=== PATIENT | male | born 1945 | race Two or more races ===

== ENCOUNTER 2018-12-02 14:01 | Inpatient (IN) | payer MEDICARE, MEDICAID ==
[~2018-12-02] VITALS: Ht 167.6 cm; Wt 79.4 kg
[2018-12-02] MEDS ORDERED: Cefepime HCl 2 GM in NS 110 ML IV SCH (14:15)
--- NOTE | 2018-12-02 14:43 | Diagnostic Imaging Report ---
Indication: Dyspnea Comparison: None A single view chest radiograph was obtained. Findings: Bones are osteopenic. The heart is mildly enlarged. Lung volumes are low bilaterally. IMPRESSION: No acute findings
--- NOTE | 2018-12-02 15:00 | Emergency Room Report ---
History of Present Illness General Chief Complaint: Skin Rash/Abscess Source: Patient, Medical Record, EMS Present Illness HPI This patient presents from a half-way facility. The patient has had an ongoing infection in his right foot. He complains of pain in this location. He has been treated at the half-way facility with oral antibiotics with worsening symptoms. There is no fever or chills. There is no nausea or vomiting. There are no other complaints. Allergies: Coded Allergies: ACETAMINOPHEN (Verified Allergy, Unknown, 12/02/18) Pork (Verified Allergy, Unknown, 12/02/18) Uncoded Allergies: PENICILLIN (Allergy, Unknown, 12/02/18) Patient History Past Medical History: see triage record, old chart reviewed, DM, HTN, GERD, dementia, psych hx, renal disease, other - Chronic foot ulcers Social History: Denies: smoking, alcohol use, drug use Reviewed Nursing Documentation: PMH: Agreed; PSxH: Agreed Review of Systems All Other Systems: negative except mentioned in HPI Physical Exam Vital Signs Date Time Temp Pulse Resp B/P (MAP) Pulse Ox O2 Delivery O2 Flow Rate FiO2 12/02/18 13:56 98.6 81 18 92 Sp02 EP Interpretation: reviewed, normal General Appearance: no apparent distress, alert, GCS 15, non-toxic Head: normocephalic, atraumatic Eyes: bilateral eye normal inspection, bilateral eye PERRL ENT: hearing grossly normal, normal pharynx, no angioedema, normal voice Neck: full range of motion, supple/symm/no masses Respiratory: chest non-tender, lungs clear, normal breath sounds, no respiratory distress, no retraction, no accessory muscle use, speaking full sentences Cardiovascular #1: regular rate, rhythm, no edema Gastrointestinal: normal bowel sounds, non tender, soft, non-distended, no guarding, no rebound Rectal: deferred Musculoskeletal: normal range of motion, other - R. foot: Toes 1-4 with erythema, ulceration, maceration and swelling. Neurologic: alert, responsive, sensory intact, speech normal, grossly normal Psychiatric: judgement/insight normal, memory normal, mood/affect normal Skin: warm/dry, well hydrated, other - See above in MSK Medical Decision Making Diagnostic Impression: Primary Impression: Cellulitis and abscess of foot Additional Impressions: Chronic ulcer of toes Renal insufficiency Hyperglycemia ER Course This patient has findings on physical exam consistent severe with tinea pedis with chronic ulcerations and skin findings that could be overlying cellulitis. The patient was given broad-spectrum antibiotics here in the emergency department. The patient may need debridement and further evaluation by podiatry given the outpatient treatment is failing. The patient remained stable in the emergency department and was admitted for further evaluation and treatment of his cellulitis and chronic ulcers on his right foot/toes. Also, there could be an underlying osteomyelitis. Laboratory Tests Test 12/02/18 14:37 White Blood Count 9.8 K/UL (4.8-10.8) Red Blood Count 4.19 M/UL (4.70-6.10) L Hemoglobin 12.7 G/DL (14.2-18.0) L Hematocrit 38.4 % (42.0-52.0) L Mean Corpuscular Volume 91 FL (80-99) Mean Corpuscular Hemoglobin 30.4 PG (27.0-31.0) Mean Corpuscular Hemoglobin Concent 33.2 G/DL (32.0-36.0) Red Cell Distribution Width 12.2 % (11.6-14.8) Platelet Count 340 K/UL (150-450) Mean Platelet Volume 6.7 FL (6.5-10.1) Neutrophils (%) (Auto) 65.0 % (45.0-75.0) Lymphocytes (%) (Auto) 26.9 % (20.0-45.0) Monocytes (%) (Auto) 5.1 % (1.0-10.0) Eosinophils (%) (Auto) 2.1 % (0.0-3.0) Basophils (%) (Auto) 1.0 % (0.0-2.0) Sodium Level 139 MMOL/L (136-145) Potassium Level 4.9 MMOL/L (3.5-5.1) Chloride Level 94 MMOL/L (98-107) L Carbon Dioxide Level 28 MMOL/L (21-32) Anion Gap 17 mmol/L (5-15) H Blood Urea Nitrogen 28 mg/dL (7-18) H Creatinine 1.5 MG/DL (0.55-1.30) H Estimate Glomerular Filtration Rate mL/min (>60) Glucose Level 238 MG/DL (74-106) H Lactic Acid Level 2.00 mmol/L (0.4-2.0) Calcium Level 9.0 MG/DL (8.5-10.1) Total Bilirubin 0.3 MG/DL (0.2-1.0) Aspartate Amino Transferase (AST) 12 U/L (15-37) L Alanine Aminotransferase (ALT) 21 U/L (12-78) Alkaline Phosphatase 103 U/L (46-116) Total Creatine Kinase 40 U/L (26-308) Creatine Kinase MB 1.4 NG/ML (0.0-3.6) Creatine Kinase MB Relative Index 3.5 Total Protein 8.1 G/DL (6.4-8.2) Albumin 3.2 G/DL (3.4-5.0) L Globulin 4.9 g/dL Albumin/Globulin Ratio 0.7 (1.0-2.7) L EKG Diagnostic Results Rate: normal Rhythm: NSR ST Segments: no acute changes Other Impression Q wave in lead III, V1, V2 Chest X-Ray Diagnostic Results Chest X-Ray Diagnostic Results : Chest X-Ray Ordered: Yes # of Views/Limited/Complete: 1 View Indication: Other EP Interpretation: Yes Interpretation: no consolidation, no effusion, no pneumothorax, no acute cardiopulmonary disease Impression: No acute disease Electronically Signed by: Barbara Feldman DO Last Vital Signs Date Time Temp Pulse Resp B/P (MAP) Pulse Ox O2 Delivery O2 Flow Rate FiO2 12/02/18 13:56 98.6 81 18 92 Disposition: ADMITTED INPATIENT Condition: Serious Barbara Feldman DO December 02, 2018 15:00
[2018-12-02 15:03] LABS: EOSINOPHILS % (AUTO) 2.1 % (0.0-3.0); HEMATOCRIT 38.4 % (42.0-52.0); HEMOGLOBIN 12.7 G/DL (14.2-18.0); LYMPHOCYTES % (AUTO) 26.9 % (20.0-45.0); MEAN CORPUSCULAR VOLUME 91 FL (80-99); MONOCYTES % (AUTO) 5.1 % (1.0-10.0); PLATELET COUNT 340 K/UL (150-450); RED BLOOD COUNT 4.19 M/UL (4.70-6.10); RED CELL DISTRIBUTION WIDTH 12.2 % (11.6-14.8); WHITE BLOOD COUNT 9.8 K/UL (4.8-10.8)
[2018-12-02 15:14] LABS: ANION GAP 17 mmol/L (5-15); BLOOD UREA NITROGEN 28 mg/dL (7-18); CARBON DIOXIDE 28 MMOL/L (21-32); CHLORIDE 94 MMOL/L (98-107); CREATININE 1.5 MG/DL (0.55-1.30); POTASSIUM 4.9 MMOL/L (3.5-5.1); SODIUM 139 MMOL/L (136-145)
--- NOTE | 2018-12-02 15:19 | NUR ---
ED Nurse Note: Pt was brought in by ambulance from [facility] due to infected right toes x 2 months (1st and 3rd toe); patient is on Keflex since 11/30/2018. BP 175/68 kelsey. AOx4, other VSS. Will cont to monitor.
[2018-12-02 15:28] LABS: ALANINE AMINOTRANSFERASE 21 U/L (12-78); ALBUMIN 3.2 G/DL (3.4-5.0); ALBUMIN/GLOBULIN RATIO 0.7 (1.0-2.7); ALKALINE PHOSPHATASE 103 U/L (46-116); ASPARTATE AMINO TRANSFERASE 12 U/L (15-37); BILIRUBIN,TOTAL 0.3 MG/DL (0.2-1.0); CKMB 1.4 NG/ML (0.0-3.6); CREATINE KINASE 40 U/L (26-308)
[2018-12-02 15:44] VITALS: BP 161/64
--- NOTE | 2018-12-02 16:12 | NUR ---
ED Nurse Note: Blood collected and sent to lab.
[2018-12-02] MEDS ORDERED: ACETAMINOPHEN325 M1 ORAL (16:25)
[2018-12-02] MEDS ORDERED: BACLOFEN10 MG ORAL (16:25)
[2018-12-02] MEDS ORDERED: ARTIFICIAL TEAR15 ML BOTH EYES (16:25)
[2018-12-02] MEDS ORDERED: VITAMIN D1000 UNI1 ORAL (16:25)
[2018-12-02] MEDS ORDERED: AMLODIPINE BESYL5 MG ORAL (16:25)
[2018-12-02] MEDS ORDERED: LANTUS SOL100 UNIT/1 SUBQ (16:25)
[2018-12-02 17:10] VITALS: BP 159/67
--- NOTE | 2018-12-02 17:11 | NUR ---
ED Nurse Note: Report given to TAMMY Griffith at ext [phone]. Pt to be transfered to room 401 on [facility] per protocol.
[2018-12-02 17:17] LABS: APPEARANCE,URINE CLEAR; BILIRUBIN, URINE NEGATIVE (NEGATIVE); COLOR,URINE PALE YELLOW; GLUCOSE, URINE (UA) NEGATIVE (NEGATIVE); KETONES,URINE NEGATIVE (NEGATIVE); LEUKOCYTE ESTERASE ,URINE NEGATIVE (NEGATIVE); NITRITE,URINE NEGATIVE (NEGATIVE); PH,URINE 6 (4.5-8.0); PROTEIN,URINE 2+ (NEGATIVE); UROBILINOGEN,URINE NORMAL MG/DL (0.0-1.0)
[2018-12-02] MEDS ORDERED: TRAZODONE HCL150 MG ORAL (18:33)
[2018-12-02] MEDS ORDERED: DONEPEZIL HCL5 MG ORAL (18:33)
[2018-12-02] MEDS ORDERED: PROSCAR5 MG ORAL (18:33)
[2018-12-02] MEDS ORDERED: LATANOPROST 0.7.5 ML OP (18:33)
[2018-12-02] MEDS ORDERED: HYDROCORTISONE30 G1 TP (18:33)
[2018-12-02] MEDS ORDERED: LOSARTAN POTASS50 MG ORAL (18:33)
[2018-12-02] MEDS ORDERED: DOCUSATE SODIU100 MG ORAL (18:33)
[2018-12-02] MEDS ORDERED: LEXAPRO10 MG ORAL (18:33)
[2018-12-02] MEDS ORDERED: OMEPRAZOLE20 M2 ORAL (18:33)
[2018-12-02] MEDS ORDERED: METFORMIN HCL500 M1 ORAL (18:33)
--- NOTE | 2018-12-02 19:14 | NUR ---
NURSE NOTES: Patient arrived to unit at 1740 via gurney. Report received from TAMMY Espinosa. Belongings reviewed and accounted for. Patient oriented to room. Dr. Kearney called for admission orders. Admission orders received.
--- NOTE | 2018-12-02 19:16 | NUR ---
HAND-OFF: Report given to TAMMY Colón.
--- NOTE | 2018-12-02 19:30 | NUR ---
NURSE NOTES: Received patient in no apparent distress. A&OX4, forgetful. IV site patent and intact. Bed in lowest position. Call light within reach. Will continue to monitor.
[2018-12-02 20:00] VITALS: BP 146/79
[2018-12-02] MEDS: TraZODone 100mg tab ORAL SCH (20:46)
[2018-12-02] MEDS: NovoLOG Insulin Flexpen SUBQ SCH (20:47)
[2018-12-02] MEDS: Donepezil 5mg Tab ORAL SCH (20:47)
[2018-12-02] MEDS: Vancomycin 1 GM in D5W 275 ML IVPB SCH (20:48)
[2018-12-03] VITALS: BP 153/77
[2018-12-03 04:00] VITALS: BP 105/62
[2018-12-03] MEDS: NovoLOG Insulin Flexpen SUBQ SCH ×4 (06:46→21:04)
[2018-12-03 07:30] LABS: BASOPHILS % (AUTO) 0.7 % (0.0-2.0); EOSINOPHILS % (AUTO) 2.9 % (0.0-3.0); HEMATOCRIT 34.5 % (42.0-52.0); HEMOGLOBIN 11.6 G/DL (14.2-18.0); LYMPHOCYTES % (AUTO) 26.7 % (20.0-45.0); MEAN CORPUSCULAR VOLUME 92 FL (80-99); MONOCYTES % (AUTO) 6.7 % (1.0-10.0); NEUTROPHILS % (AUTO) 62.9 % (45.0-75.0); PLATELET COUNT 289 K/UL (150-450); RED BLOOD COUNT 3.77 M/UL (4.70-6.10); WHITE BLOOD COUNT 8.6 K/UL (4.8-10.8)
--- NOTE | 2018-12-03 07:30 | NUR ---
HAND-OFF: Report given to Ann Marie MUNOZ.
--- NOTE | 2018-12-03 07:30 | NUR ---
NURSE NOTES: Received pt from TAMMY MERCADO, Pt is alert and orient x4. pt is in RA , No SOB or acute respiratory distress noted. pt has intact iv access LFA 20G SL. pt is eating breakfast. all needs attended, bed is locked and is in the lowest position, call light within easy reach. will continue to monitor.
[2018-12-03 07:46] LABS: ANION GAP 7 mmol/L (5-15); BLOOD UREA NITROGEN 24 mg/dL (7-18); CALCIUM 8.3 MG/DL (8.5-10.1); CARBON DIOXIDE 28 MMOL/L (21-32); CHLORIDE 103 MMOL/L (98-107); CREATININE 1.4 MG/DL (0.55-1.30); PHOSPHORUS 3.6 MG/DL (2.5-4.9); POTASSIUM 4.3 MMOL/L (3.5-5.1); SODIUM 138 MMOL/L (136-145)
[2018-12-03 08:00] VITALS: BP 152/68
[2018-12-03] MEDS: Vitamin D 1000 IU Tab ORAL SCH ×2 (08:36→17:07)
[2018-12-03] MEDS: metFORMIN 500mg tab ORAL SCH ×2 (08:36→17:07)
[2018-12-03] MEDS: Docusate 100mg cap ORAL SCH ×2 (08:36→17:07)
[2018-12-03] MEDS: Losartan 50mg tab ORAL SCH (08:36)
[2018-12-03] MEDS: Artificial Tears 1.4% Op Soln BOTH EYES SCH ×2 (08:44→17:06)
[2018-12-03] MEDS: Hydrocortisone 2.5% Oint 30gm TOPIC SCH ×2 (08:44→17:06)
[2018-12-03] MEDS ORDERED: Enoxaparin 30mg Inj SUBQ SCH (09:00)
[2018-12-03] MEDS ORDERED: Lidocaine 2% MPF 5ml Vial INJ ONE (11:30)
--- NOTE | 2018-12-03 11:30 | NUR ---
NURSE NOTES: Dr NIETO visited pt and cleansed the infected R toes and orderers noted and carried out will continue to monitor.
[2018-12-03 11:55] VITALS: BP 151/70
--- NOTE | 2018-12-03 14:55 | NUR ---
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 RIGHT FOOT OSTEOMYELITIS VS: BP 182/78, P 81, T 98.6, RR 18, SpO2 92 RBC 3.77, H&H 11.6/34.5, BUN 24, CR 1.4 IS:CEFEPIME 110 IV NS 2.4L IVLG LOVENOX 30mg SUBQ MED/SURG STATUS Addendum: 12/03/18 at 1517 by Lindsey Schroeder LVN DCP: RETURN TO [facility]
--- NOTE | 2018-12-03 15:17 | History and Physical ---
History of Present Illness General Date patient seen: December 03, 2018 Reason for Hospitalization: Skin Rash/Abscess Present Illness HPI 73 y/o male snf admitted for worsening right leg/foot and toe pain, erythema and possible cellulitis. P. has dm2, brittle x many years. He denies claudication. Says uop ok, no cp/sob /n/v/f/c. Allergies: Coded Allergies: ACETAMINOPHEN (Verified Allergy, Unknown, 12/02/18) Pork (Verified Allergy, Unknown, 12/02/18) Uncoded Allergies: PENICILLIN (Allergy, Unknown, 12/02/18) Medication History Scheduled Amlodipine Besylate* (Amlodipine Besylate*), 5 MG ORAL DAILY, (Reported) Baclofen* (Baclofen*), 10 MG ORAL THREE TIMES A DAY, (Reported) Cholecalciferol (Vitamin D3)* (Vitamin D*), 2,000 UNITS ORAL TWICE A DAY, ( Reported) Dextran 70/Hypromellose (Artificial Tears Eye Drops*), 1 DROP BOTH EYES BID, ( Reported) Docusate Sodium* (Docusate Sodium*), 100 MG ORAL TWICE A DAY, (Reported) Donepezil Hcl* (Donepezil Hcl*), 5 MG ORAL BEDTIME, (Reported) Escitalopram Oxalate* (Lexapro*), 10 MG ORAL BEDTIME, (Reported) Finasteride* (Proscar*), 5 MG ORAL DAILY, (Reported) Hydrocortisone Oint 2.5% (Hydrocortisone Oint 2.5%), 1 APPLIC TP BID, (Reported) Insulin Glargine (Lantus), 25 UNITS SUBQ BID, (Reported) Losartan Potassium* (Losartan Potassium*), 50 MG ORAL DAILY, (Reported) Metformin Hcl* (Metformin Hcl*), 500 MG ORAL TWICE A DAY, (Reported) Omeprazole (Omeprazole), 20 MG ORAL DAILY, (Reported) Trazodone* (Trazodone*), 100 MG ORAL BEDTIME, (Reported) Scheduled PRN Acetaminophen* (Acetaminophen 325MG Tablet*), 650 MG ORAL Q4H PRN for For Pain, (Reported) Miscellaneous Medications Latanoprost/Pf (Latanoprost 0.005% Eye Drop), 1 DROP OP, (Reported) Patient History Healthcare decision maker N Resuscitation status Full Code Advanced Directive on File No Review of Systems Constitutional: Reports: malaise Eye: Denies: no symptoms, see HPI, eye pain, blurred vision, tearing, double vision, nose pain, nose congestion, acuity changes, discharge, other ENT: Denies: no symptoms, see HPI, ear pain, ear discharge, nose pain, nose congestion, throat pain, throat swelling, mouth pain, hearing loss, nasal discharge, other Respiratory: Denies: no symptoms, see HPI, cough, orthopnea, shortness of breath, stridor, wheezing, CARTAGENA, sputum, other Cardiovascular: Denies: no symptoms, see HPI, chest pain, edema, palpitations, syncope, PND, other Gastrointestinal: Denies: no symptoms, see HPI, abdominal pain, constipation, diarrhea, nausea, vomiting, melena, hematemesis, other Genitourinary: Denies: no symptoms, see HPI, discharge, dysuria, frequency, hematuria, pain, retention, incontinence, urgency, vag bleed/dc, other Musculoskeletal: Reports: joint pain, joint swelling, muscle stiffness; Denies : no symptoms, see HPI, back pain, gout, muscle pain, other Skin: Reports: rash, change in color; Denies: no symptoms, see HPI, change in hair/nails, dryness, lesions, other Psychiatric: Denies: no symptoms, see HPI, prior hx, anxiety, depressed feelings, emotional problems, SI, HI, hallucinations, other Neurological: Denies: no symptoms, see HPI, headache, numbness, paresthesia, seizure, tingling, tremors, focal weakness, syncope, dizziness, other Physical Exam General Appearance: WD/WN, no apparent distress, alert HEENT: EOMI, supple Neck: non-tender, supple Respiratory/Chest: lungs clear Cardiovascular/Chest: normal rate, regular rhythm, regularly irregular, no gallop/murmur Skin Exam: rash Neurologic: setter out II-XII grossly normal, no motor/sensory deficits Last 24 Hour Vital Signs Date Time Temp Pulse Resp B/P (MAP) Pulse Ox O2 Delivery O2 Flow Rate FiO2 12/03/18 11:55 98.2 78 18 151/70 (97) 97 12/03/18 09:00 Room Air 12/03/18 08:36 152/68 12/03/18 08:36 80 152/68 12/03/18 08:00 98.1 80 19 152/68 (96) 96 12/03/18 04:00 98.9 76 20 105/62 (76) 97 12/03/18 00:00 97.6 80 18 153/77 (102) 96 12/02/18 21:00 Room Air 12/02/18 20:00 98.5 83 18 146/79 (101) 98 12/02/18 18:26 Room Air 12/02/18 17:12 98.6 76 14 159/67 98 Room Air 12/02/18 17:10 76 14 159/67 98 Room Air 12/02/18 15:44 98.6 78 18 161/64 96 Intake and Output 12/02/18 12/03/18 18:59 06:59 Intake Total 2510 ml 275.000 ml Output Total 1250 ml Balance 2510 ml -975.000 ml Intake IV Total 2510 ml 275.000 ml Output Urine Total 1250 ml # Voids 1 2 Laboratory Tests Test 12/02/18 16:52 12/03/18 04:48 Urine Color Pale yellow Urine Appearance Clear Urine pH 6 (4.5-8.0) Urine Specific Murray 1.005 (1.005-1.035) Urine Protein 2+ (NEGATIVE) H Urine Glucose (UA) Negative (NEGATIVE) Urine Ketones Negative (NEGATIVE) Urine Blood Negative (NEGATIVE) Urine Nitrite Negative (NEGATIVE) Urine Bilirubin Negative (NEGATIVE) Urine Urobilinogen Normal MG/DL (0.0-1.0) Urine Leukocyte Esterase Negative (NEGATIVE) Urine RBC 0 /HPF (0 - 0) Urine WBC 0 /HPF (0 - 0) Urine Squamous Epithelial Cells None /LPF (NONE/OCC) Urine Bacteria None /HPF (NONE) White Blood Count 8.6 K/UL (4.8-10.8) Red Blood Count 3.77 M/UL (4.70-6.10) L Hemoglobin 11.6 G/DL (14.2-18.0) L Hematocrit 34.5 % (42.0-52.0) L Mean Corpuscular Volume 92 FL (80-99) Mean Corpuscular Hemoglobin 30.8 PG (27.0-31.0) Mean Corpuscular Hemoglobin Concent 33.6 G/DL (32.0-36.0) Red Cell Distribution Width 12.0 % (11.6-14.8) Platelet Count 289 K/UL (150-450) Mean Platelet Volume 6.8 FL (6.5-10.1) Neutrophils (%) (Auto) 62.9 % (45.0-75.0) Lymphocytes (%) (Auto) 26.7 % (20.0-45.0) Monocytes (%) (Auto) 6.7 % (1.0-10.0) Eosinophils (%) (Auto) 2.9 % (0.0-3.0) Basophils (%) (Auto) 0.7 % (0.0-2.0) Erythrocyte Sedimentation Rate 54 MM/HR (0-20) H Sodium Level 138 MMOL/L (136-145) Potassium Level 4.3 MMOL/L (3.5-5.1) Chloride Level 103 MMOL/L (98-107) Carbon Dioxide Level 28 MMOL/L (21-32) Anion Gap 7 mmol/L (5-15) Blood Urea Nitrogen 24 mg/dL (7-18) H Creatinine 1.4 MG/DL (0.55-1.30) H Estimat Glomerular Filtration Rate mL/min (>60) Glucose Level 190 MG/DL (74-106) H Calcium Level 8.3 MG/DL (8.5-10.1) L Phosphorus Level 3.6 MG/DL (2.5-4.9) Magnesium Level 1.4 MG/DL (1.8-2.4) L Height (Feet): 5 Height (Inches): 6.00 Weight (Pounds): 174 Medications Current Medications Medications (Trade) Dose Ordered Sig/Asrai Route PRN Reason Start Time Stop Time Status Last Admin Dose Admin Amlodipine Besylate (Norvasc) 5 mg DAILY ORAL 12/03/18 09:00 01/02/19 08:59 12/03/18 08:36 Artificial Tears (Akwa-Tears) 1 drop BID BOTH EYES 12/03/18 09:00 01/02/19 08:59 12/03/18 08:44 Baclofen (Lioresal) 10 mg THREE TIMES A DAY ORAL 12/03/18 09:00 01/02/19 08:59 12/03/18 12:37 Dextrose (Dextrose 50%) 25 ml Q30M PRN IV Hypoglycemia 12/02/18 19:00 01/01/19 18:59 Dextrose (Dextrose 50%) 50 ml Q30M PRN IV Hypoglycemia 12/02/18 19:00 01/01/19 18:59 Docusate Sodium (Colace) 100 mg TWICE A DAY ORAL 12/03/18 09:00 01/02/19 08:59 12/03/18 08:36 Donepezil HCl (Aricept) 5 mg BEDTIME ORAL 12/02/18 21:00 01/01/19 20:59 12/02/18 20:47 Enoxaparin Sodium (Lovenox) 40 mg DAILY SUBQ 12/04/18 09:00 01/03/19 08:59 Escitalopram Oxalate (Lexapro) 10 mg BEDTIME ORAL 12/02/18 21:00 01/01/19 20:59 12/02/18 20:47 Finasteride (Proscar) 5 mg DAILY ORAL 12/03/18 09:00 01/02/19 08:59 12/03/18 08:36 Hydrocortisone (Hydrocortisone) 1 applic BID TOPIC 12/03/18 09:00 01/02/19 08:59 12/03/18 08:44 Insulin Aspart (NovoLOG) BEFORE MEALS AND HS SUBQ 12/02/18 21:00 01/01/19 20:59 12/03/18 12:38 Losartan Potassium (Cozaar) 50 mg DAILY ORAL 12/03/18 09:00 01/02/19 08:59 12/03/18 08:36 Metformin HCl (Glucophage) 500 mg TWICE A DAY ORAL 12/03/18 09:00 01/02/19 08:59 12/03/18 08:36 Pantoprazole (Protonix) 40 mg DAILY ORAL 12/02/18 19:15 01/01/19 19:14 12/03/18 08:35 Trazodone HCl (Desyrel) 100 mg BEDTIME ORAL 12/02/18 21:00 01/01/19 20:59 12/02/18 20:46 Vancomycin HCl 1 gm/Dextrose 275 ml @ 183.708 mls/hr Q24H IVPB 12/02/18 21:00 12/07/18 20:59 12/02/18 20:48 Vitamin D (Vitamin D) 2,000 intlu TWICE A DAY ORAL 12/03/18 09:00 01/02/19 08:59 12/03/18 08:36 Assessment/Plan Problem List: (1) Gait abnormality Assessment & Plan: -PT eval ICD Codes: R26.9 - Unspecified abnormalities of gait and mobility SNOMED: 71162111 (2) HTN (hypertension) ICD Codes: I10 - Essential (primary) hypertension SNOMED: 57911609 Qualifiers: Qualified Codes: I10 - Essential (primary) hypertension (3) Hyperglycemia Assessment & Plan: -sec to dm2, SSI, 1800 ada, watch bs closely ICD Codes: R73.9 - Hyperglycemia, unspecified SNOMED: 98587922, 192051511, 192043022 (4) Chronic ulcer of toes Assessment & Plan: - called wound care, pics reviewed, iv abx till seen by podaitryAnderson ICD Codes: L97.509 - Non-pressure chronic ulcer of other part of unspecified foot with unspecified severity SNOMED: 945533905, 459515067, 353670625 (5) Renal insufficiency Assessment & Plan: - At baseline -avoid nephrotoxins -watch volume status, adjust meds, watch uop, check bone mineral parameters ICD Codes: N28.9 - Disorder of kidney and ureter, unspecified SNOMED: 571848632, 216194019, 275173725 (6) Cellulitis and abscess of foot ICD Codes: L03.119 - Cellulitis of unspecified part of limb; L02.619 - Cutaneous abscess of unspecified foot SNOMED: 196276092, 017326903, 693586715 Status: Fred Sherwood M.D. December 03, 2018 15:17
--- NOTE | 2018-12-03 15:26 | Cardiology Report ---
APPROVED REPORT EKG Measurement Heart [id number] 144P14 [id number] Normal sinus rhythm Cannot rule out Anterior infarct, age undetermined Abnormal ECG
[2018-12-03 16:00] VITALS: BP 149/67
[2018-12-03] MEDS: Tylenol #3 tab (300mg/30mg) ORAL PRN (16:03)
--- NOTE | 2018-12-03 19:08 | NUR ---
HAND-OFF: Report given to TAMMY MERCADO.
--- NOTE | 2018-12-03 19:30 | Consultation ---
DATE OF CONSULTATION: 12/03/2018 CONSULTING PHYSICIAN: REASON FOR CONSULTATION: Infection to the right foot. HISTORY OF PRESENT ILLNESS: This is a 73-year-old diabetic patient who was [facility] with infection to the right foot. Upon the ER information, the patient has had a chronic foot ulceration and has been treated at the facility. The patient was admitted once infection was noted in his toes. The patient was admitted to the floor with IV antibiotics. The patient is afebrile with white count within normal limits. PAST MEDICAL HISTORY: Per Dr. Kearney, diabetes, cellulitis, hypertension, GERD, renal disease, diabetic foot ulcer. PHYSICAL EXAMINATION: VASCULAR: Dorsalis pedis noted to be slightly palpable 1/4 with capillary filling time within 5 seconds. Posterior tibial artery are nonpalpable. NEUROLOGICAL: Sharp and dull proprioception, protected threshold, vibratory sensation noted to be slightly diminished to bilateral feet. MUSCULOSKELETAL: No gross abnormalities noted. The patient is mobile. Muscle strength is noted to be 5/5 with range of motion slightly diminished. DERMATOLOGICAL: Attention was directed to the right foot where an ulceration is noted to the medial aspect of the distal hallux, medial aspect of the distal second toe and dorsum aspect of the right third toe. The ulceration is noted to be dry, 3 mm in diameter, necrotic tissue. No drainage, purulence or discharge noted. Periwound erythema. Attention was directed to the dorsum aspect of the nail fold of the first and third toe where the third toe demonstrated a drainage and pus subungually from the proximal aspect of the nail fold and nail is noted to be subungual hematoma dry consistent with possible contusion. There is odor at the site. There is drainage and discharge. There is periwound cellulitis. Right hallux toe noted subungual ulceration with the nail partially detached. There is no drainage, discharge, purulent matter at the site, or odor. ASSESSMENT AND PLAN: 1. Right diabetic foot ulcers, hallux second toe and third toe. 2. First and third toe contusion with subungual ulceration. 3. Cellulitis of the right third toe with purulent discharge. The toes one and third were anesthetized utilizing a 2% lidocaine plain with a syringe and needle proximal aspect at the metatarsophalangeal joint. Once the toe was noted to be anesthetized, the toes were scrubbed with Betadine. Utilizing sharp sterile instruments, the hallux nail and third toenail were avulsed in total. The wound was then cleansed with normal saline. All nonviable tissue were debrided. Purulent matter were cleaned out and noted to be satisfactory. Bleeding noted to both hallux and third toe. Utilizing sharp debridement, ulcerations to the medial aspect of the first distal toe and third dorsum distal toe ulceration were debrided out to sufficient granulating bleeding tissue to subcutaneous. The wounds were flushed with normal saline and then Xeroform was applied with dry dressing. Order was written for cleansing of the wound site with normal saline and apply Xeroform daily. Vascular consultation was initiated. The patient will be related to Dr. Kearney for followup and treatment. The patient will be followed. Matt Esparza D.P.M DR: Danial JOB#: [id number] CC:
--- NOTE | 2018-12-03 19:36 | NUR ---
NURSE NOTES: Received patient in no apparent distress. A&OX4. IV site patent and intact. Dressing on right foot, dry and intact. Bed in lowest position. Call light within reach. Will continue to monitor.
[2018-12-03 20:00] VITALS: BP 147/66
--- NOTE | 2018-12-03 20:21 | NUR ---
NURSE NOTES: Patient c/o lot of pain on right foot even though patient took Tylenol #3. Obtained order of Dilaudid 0.5mg IVP q4hrs prn from Dr. Kearney.
[2018-12-03] MEDS: Hydromorphone 0.5mg/0.5ml inj IVP PRN (21:01)
[2018-12-03] MEDS: Donepezil 5mg Tab ORAL SCH (21:01)
[2018-12-03] MEDS: TraZODone 100mg tab ORAL SCH (21:02)
[2018-12-03] MEDS: Vancomycin 1 GM in D5W 275 ML IVPB SCH (21:02)
[2018-12-04] VITALS: BP 141/81
[2018-12-04] MEDS: Hydromorphone 0.5mg/0.5ml inj IVP PRN ×2 (02:59→14:28)
[2018-12-04 04:00] VITALS: BP 125/63
--- NOTE | 2018-12-04 05:39 | NUR ---
NURSE NOTES: Received call from Lab regarding positive VRE rectum. Will notify
[2018-12-04] MEDS: NovoLOG Insulin Flexpen SUBQ SCH ×4 (06:12→21:06)
--- NOTE | 2018-12-04 06:51 | NUR ---
NURSE NOTES: Page Dr. Kearney regarding positive VRE rectum. Waiting a call back.
--- NOTE | 2018-12-04 07:24 | NUR ---
HAND-OFF: Report given to Ann Marie MUNOZ.
--- NOTE | 2018-12-04 07:25 | NUR ---
NURSE NOTES: Received pt from RN JESS, Pt is alert and orient x4. pt is in RA , No SOB or acute respiratory distress noted. pt has intact iv access LFA 20G SL. pt is eating breakfast. pt has intact dressing on his R foot. all needs attended, bed is locked and is in the lowest position, call light within easy reach. will continue to monitor.
[2018-12-04 08:00] VITALS: BP 134/64
[2018-12-04] MEDS: Docusate 100mg cap ORAL SCH ×2 (08:50→17:22)
[2018-12-04] MEDS: Vitamin D 1000 IU Tab ORAL SCH ×2 (08:50→17:21)
[2018-12-04] MEDS: metFORMIN 500mg tab ORAL SCH ×2 (08:50→17:22)
[2018-12-04] MEDS: Artificial Tears 1.4% Op Soln BOTH EYES SCH ×2 (08:50→17:28)
[2018-12-04] MEDS: Losartan 50mg tab ORAL SCH (08:50)
[2018-12-04] MEDS: Hydrocortisone 2.5% Oint 30gm TOPIC SCH ×2 (08:50→17:28)
[2018-12-04] MEDS: Enoxaparin 40mg Inj SUBQ SCH (08:52)
--- NOTE | 2018-12-04 09:01 | NUR ---
NURSE NOTES: called Dr virgen at 0730 and 0800 regarding VRE RECTUM, and called back at 0830 and stated he will F/U. will continue to monitor.
--- NOTE | 2018-12-04 10:46 | NUR ---
NURSE NOTES: Dr HURD called and ordered rosalind duplex bilateral lower extremities, noted and carried out. will continue to monitor.
[2018-12-04 12:00] VITALS: BP 117/56
--- NOTE | 2018-12-04 14:00 | NUR ---
NURSE NOTES: Dr ROB visited pt, is aware regarding VRE RECTUM, all orderes carried out, WOUND CULTURE sent to lab, waiting to call back. will continue to monitor.
[2018-12-04 16:00] VITALS: BP 115/58
--- NOTE | 2018-12-04 16:27 | Infectious Diseases Prog Note ---
Assessment/Plan Assessment/Plan Full consult dictated: A) 1) right foot/toes cellulitis/wound infection, ? osteomyelitis 2) pmh noted 3) allergies - allergies - pcn P) 1) aztreonam, vancomycin, flagyl 2) debridement per podiatry 3) check cultures 4) thank you Subjective Allergies: Coded Allergies: ACETAMINOPHEN (Verified Allergy, Unknown, 12/02/18) Pork (Verified Allergy, Unknown, 12/02/18) Uncoded Allergies: PENICILLIN (Allergy, Unknown, 12/02/18) Objective Vital Signs Last 24 Hour Vital Signs Date Time Temp Pulse Resp B/P (MAP) Pulse Ox O2 Delivery O2 Flow Rate FiO2 12/04/18 14:58 98.1 12/04/18 12:00 98.1 84 18 117/56 (76) 95 12/04/18 09:00 Room Air 12/04/18 08:50 134/64 12/04/18 08:50 76 134/64 12/04/18 08:00 98.7 76 20 134/64 (87) 94 12/04/18 04:00 97.4 80 18 125/63 (83) 97 12/04/18 00:00 97.7 88 20 141/81 (101) 96 12/03/18 21:00 Room Air 12/03/18 20:00 98.8 68 18 147/66 (93) 98 12/03/18 16:33 98.2 Height (Feet): 5 Height (Inches): 6.00 Weight (Pounds): 174 Microbiology Date/Time Source Procedure Growth Status 12/02/18 14:37 Blood Blood Culture - Preliminary NO GROWTH AFTER 24 HOURS Resulted 12/02/18 14:37 Blood Blood Culture - Preliminary NO GROWTH AFTER 24 HOURS Resulted 12/02/18 18:20 Nasal Nares MRSA Culture - Final NO METHICILLIN RESISTANT STAPH AUREUS... Complete 12/02/18 18:20 Rectum VRE Culture - Final Enterococcus Faecalis - Vre Complete 12/02/18 18:20 Rectum - Final NO CARBAPENEM-RESISTANT ENTEROBACTERI... Complete Current Medications Medications (Trade) Dose Ordered Sig/Sarai Route PRN Reason Start Time Stop Time Status Last Admin Dose Admin Acetaminophen/ Codeine Phosphate (Tylenol #3) 1 tab Q6H PRN ORAL For Pain 12/03/18 15:30 12/10/18 15:29 12/03/18 16:03 Amlodipine Besylate (Norvasc) 5 mg DAILY ORAL 12/03/18 09:00 01/02/19 08:59 12/04/18 08:50 Artificial Tears (Akwa-Tears) 1 drop BID BOTH EYES 12/03/18 09:00 01/02/19 08:59 12/04/18 08:50 Baclofen (Lioresal) 10 mg THREE TIMES A DAY ORAL 12/03/18 09:00 01/02/19 08:59 12/04/18 12:00 Dextrose (Dextrose 50%) 25 ml Q30M PRN IV Hypoglycemia 12/02/18 19:00 01/01/19 18:59 Dextrose (Dextrose 50%) 50 ml Q30M PRN IV Hypoglycemia 12/02/18 19:00 01/01/19 18:59 Docusate Sodium (Colace) 100 mg TWICE A DAY ORAL 12/03/18 09:00 01/02/19 08:59 12/04/18 08:50 Donepezil HCl (Aricept) 5 mg BEDTIME ORAL 12/02/18 21:00 01/01/19 20:59 12/03/18 21:01 Enoxaparin Sodium (Lovenox) 40 mg DAILY SUBQ 12/04/18 09:00 01/03/19 08:59 12/04/18 08:52 Escitalopram Oxalate (Lexapro) 10 mg BEDTIME ORAL 12/02/18 21:00 01/01/19 20:59 12/03/18 21:01 Finasteride (Proscar) 5 mg DAILY ORAL 12/03/18 09:00 01/02/19 08:59 12/04/18 08:50 Hydrocortisone (Hydrocortisone) 1 applic BID TOPIC 12/03/18 09:00 01/02/19 08:59 12/04/18 08:50 Hydromorphone HCl (Dilaudid) 0.5 mg Q4H PRN IVP For Pain 12/03/18 20:24 12/10/18 20:23 12/04/18 14:28 Insulin Aspart (NovoLOG) BEFORE MEALS AND HS SUBQ 12/02/18 21:00 01/01/19 20:59 12/04/18 11:59 Losartan Potassium (Cozaar) 50 mg DAILY ORAL 12/03/18 09:00 01/02/19 08:59 12/04/18 08:50 Metformin HCl (Glucophage) 500 mg TWICE A DAY ORAL 12/03/18 09:00 01/02/19 08:59 12/04/18 08:50 Pantoprazole (Protonix) 40 mg DAILY ORAL 12/02/18 19:15 01/01/19 19:14 12/04/18 08:56 Trazodone HCl (Desyrel) 100 mg BEDTIME ORAL 12/02/18 21:00 01/01/19 20:59 12/03/18 21:02 Vancomycin HCl 1 gm/Dextrose 275 ml @ 183.708 mls/hr Q24H IVPB 12/02/18 21:00 12/07/18 20:59 12/03/18 21:02 Vitamin D (Vitamin D) 2,000 intlu TWICE A DAY ORAL 12/03/18 09:00 01/02/19 08:59 12/04/18 08:50 Haroldo Hinojosa MD December 04, 2018 16:27
--- NOTE | 2018-12-04 16:55 | Diagnostic Imaging Report ---
EXAM: XR Right Foot Complete, 3 or More Views CLINICAL HISTORY: OSTEOMY TECHNIQUE: Frontal, lateral and oblique views of the right foot. COMPARISON: No relevant prior studies available. FINDINGS: Bones/joints: Mild heterogeneity of the head of the first metatarsal. Degenerative changes. Small plantar and posterior calcaneal spurs. Soft tissues: No radiodense foreign body. IMPRESSION: Mild heterogeneity of the head of the first metatarsal. Could be from surgical changes or trauma of uncertain chronicity.
[2018-12-04] MEDS ORDERED: metroNIDAZOLE 500mg tab ORAL SCH (17:00)
[2018-12-04] MEDS ORDERED: Aztreonam Inj 1 GM in D5W 55 ML IVPB SCH (17:30)
--- NOTE | 2018-12-04 18:13 | Nephrology Progress Note ---
Assessment/Plan Problem List: (1) Gait abnormality Assessment: -PT eval (2) HTN (hypertension) Assessment: - bp at goal (3) Hyperglycemia Assessment: -sec to dm2, SSI, 1800 ada, watch bs closely (4) Chronic ulcer of toes Assessment: - called wound care, pics reviewed, -r/o OM, Iv abx per ID -may need Debrid (5) Renal insufficiency Assessment: - At baseline -avoid nephrotoxins -watch volume status, adjust meds, watch uop, check bone mineral parameters (6) Cellulitis and abscess of foot Subjective ROS Limited/Unobtainable: Yes Subjective pt. seen and examined has VRE. seen by podiatry and ID d/w rn c/o pain in foot Objective Objective Last 24 Hour Vital Signs Date Time Temp Pulse Resp B/P (MAP) Pulse Ox O2 Delivery O2 Flow Rate FiO2 12/04/18 16:00 97.2 85 20 115/58 (77) 95 12/04/18 14:58 98.1 12/04/18 12:00 98.1 84 18 117/56 (76) 95 12/04/18 09:00 Room Air 12/04/18 08:50 134/64 12/04/18 08:50 76 134/64 12/04/18 08:00 98.7 76 20 134/64 (87) 94 12/04/18 04:00 97.4 80 18 125/63 (83) 97 12/04/18 00:00 97.7 88 20 141/81 (101) 96 12/03/18 21:00 Room Air 12/03/18 20:00 98.8 68 18 147/66 (93) 98 Intake and Output 12/03/18 12/04/18 19:00 07:00 Intake Total 875 ml 275.000 ml Output Total 1200 ml 800 ml Balance -325 ml -525.000 ml Intake Oral 875 ml IV Total 275.000 ml Output Urine Total 1200 ml 800 ml # Voids 4 Height (Feet): 5 Height (Inches): 6.00 Weight (Pounds): 174 General Appearance: WD/WN, no apparent distress Neck: non-tender, supple Cardiovascular: normal peripheral pulses, normal rate Abdomen: soft Extremities: non-pitting, trace edema Neurologic: grease and tallow pumper II-XII grossly normal Fred Kearney M.D. December 04, 2018 18:13
--- NOTE | 2018-12-04 19:30 | NUR ---
HAND-OFF: Report given to TAMMY TRACEY.
--- NOTE | 2018-12-04 19:31 | NUR ---
NURSE NOTES: Received pt from TAMMY Jesus, Pt is alert and orient x4. pt is on RA , No SOB or acute respiratory distress noted. pt has intact iv access LFA 20G SL. pt has intact dressing on his R foot., bed is locked and is in the lowest position, bed alarm on. call light within reach. will continue to monitor.
[2018-12-04 20:00] VITALS: BP 142/64
[2018-12-04] MEDS: Donepezil 5mg Tab ORAL SCH (21:07)
[2018-12-04] MEDS: TraZODone 100mg tab ORAL SCH (21:07)
[2018-12-04] MEDS: Vancomycin 1 GM in D5W 275 ML IVPB SCH (21:08)
[2018-12-04] MEDS: metroNIDAZOLE 500mg tab ORAL SCH (22:00)
[2018-12-04] MEDS: Tylenol #3 tab (300mg/30mg) ORAL PRN (23:11)
[2018-12-05] VITALS: BP 121/72
--- NOTE | 2018-12-05 02:00 | Consultation ---
DATE OF CONSULTATION: 12/04/2018 INFECTIOUS DISEASE CONSULTATION CONSULTING PHYSICIAN: Haroldo Hinojosa M.D. ATTENDING PHYSICIAN: Fred Kearney M.D. REFERRING PHYSICIAN: Fred Kearney M.D. REASON FOR CONSULTATION: Right foot and toe cellulitis, possible infected wound and possible osteomyelitis. CHIEF COMPLAINT: The patient's chief complaint coming into the hospital is right foot toe cellulitis and wounds. HISTORY OF PRESENT ILLNESS: This is a very pleasant 73-year-old male who is not E[place] speaking. He comes in with right foot pain. Clinically, he has right foot redness of the foot and toes. He had multiple toes involved, which looks like also in the toes and foot. He has infected wounds with possible osteo. It is unclear how long he has had this, but it has been quite some time. Infectious Disease consultation is requested. The patient is allergic to penicillin. It is unclear what type of allergy. I am going to place the patient on vancomycin, aztreonam, and Flagyl pending wound culture. MRI has been ordered. Case was also discussed with Dr. Esparza from Podiatry and he said he debrided the wounds locally and agreed with the MRI. We will get the MRI without contrast because the patient does have an elevated creatinine. MAR was noted. Orders were noted. Notes and records were reviewed. Case was discussed with RN at length. REVIEW OF SYSTEMS: CONSTITUTIONAL: He has no fever or chills. No mention of night sweats. HEAD AND NECK: No head pain or neck pain. CARDIAC: No chest pain. GASTROINTESTINAL: No nausea, vomiting, or diarrhea. GENITOURINARY: No Ng. No dysuria or frequency. No CVA tenderness. PULMONARY: No congestion or shortness of breath. SKIN: No rash or itching. EXTREMITIES: He has right foot pain. NEUROLOGIC: No seizures. PAST MEDICAL HISTORY: The patient's past medical history includes the following. The patient has a past medical history of diabetes mellitus. He has history of hyperglycemia. He also has history of hypertension, gait abnormality, history of renal insufficiency, elevated creatinine, and anemia. He has got diabetes type 2. He has ulcers. ALLERGIES: Include penicillin, pork, and acetaminophen. SOCIAL HISTORY: Negative for smoking, alcohol, or drug abuse. FAMILY HISTORY: Noncontributory per the records. There is no mention of exposure to tuberculosis or cancer. MEDICATIONS: Upon reviewing the MAR, he is on following medications. He is on Lovenox, Ranexa, prednisone, and hydromorphone. He is on lidocaine, amlodipine, Norvasc, 02:39 with vitamin D, docusate, finasteride, Proscar, hydrocortisone cream topically. He is on Cozaar, Glucophage, Lovenox, and Aricept. He is on trazodone, vancomycin, aztreonam, and Flagyl for antibiotics. Insulin, pantoprazole, and intravenous fluids. Actually, he did also get cefepime and he tolerated this. I believe maybe instead of aztreonam, I will put the patient on cefepime. We will discuss with pharmacy. Outside medications were noted and reconciliated. PHYSICAL EXAMINATION: VITAL SIGNS: Temperature is 98.1, pulse rate is 84, respiratory rate 18, blood pressure 117/56, and saturation 95%. GENERAL: Alert and responsive, in no acute distress. HEAD AND NECK: Oral exam, no thrush. Eye exam, no icterus. Neck is supple. No jugular venous distention. Normocephalic. LUNGS: Clear bilaterally. No rhonchi or rales. HEART: Regular. No gallop or murmur. ABDOMEN: Soft. Positive bowel sounds. Nontender. SKIN: No rash. MUSCULOSKELETAL: No effusion. Legs are without cellulitis. PERIPHERAL VASCULAR: He has no gangrene of the right foot, but he does have redness and warmth of the right foot and toes. Multiple toes including wounds and ulcers that looked like they have some slough. GENITOURINARY: No Ng. No CVA tenderness. LINES: Line sites without phlebitis. NEUROLOGIC: Intact. Alert and oriented x3. MUSCULOSKELETAL: No septic arthritis. Legs are without cellulitis, but the right foot and toes have cellulitis, warmth, and redness in addition to infected wounds. LABORATORY DATA: Laboratory data is as follows. Creatinine 1.4. White count 8.6 and hemoglobin 11.6. Creatinine 1.4. UA was leukocyte esterase negative. Cultures are pending. Blood cultures negative. Wound culture of the right foot and toes is pending. Vancomycin resistant enterococcus is positive. I will order MRI and x-rays of the feet. Also, I will order a sedimentation rate. ASSESSMENT AND PLAN: 1. The patient has right foot and multiple toe cellulitis, infected wounds, rule out osteo. At this time, the patient will be placed on vancomycin, aztreonam, and Flagyl. However, I will change aztreonam to cefepime if he has tolerated in the ER. Continue antibiotics vancomycin, cefepime, aztreonam, and Flagyl and check wound culture, MRI, and x-ray of the right foot. Check sedimentation rate. Podiatry is following. They did debride it and we will await the imaging results before deciding on antibiotic course for this patient with right foot and toe cellulitis, rule out osteo and infected wounds. 2. Diabetes mellitus. 3. Hypertension. 4. Elevated creatinine. 5. Chronic renal failure. 6. Diabetes and hypertension treatment per primary. 7. Anemia. 8. Hyperglycemia. Treatment per primary care team. 9. Gait abnormality. 10. Wound care protocol. 11. Allergies to acetaminophen, penicillin, and pork. 12. Social history is negative. 13. Family history is noncontributory. 14. MAR was noted. 15. Case was discussed with RN. 16. Continue treatment per primary consultants. 17. Case discussed with Podiatry, Dr. Matt Esparza. Haroldo Hinojosa M.D. DR: DONNY JOB#: [id number] CC:
[2018-12-05 04:19] VITALS: BP 121/64
[2018-12-05] MEDS: metroNIDAZOLE 500mg tab ORAL SCH ×3 (05:31→21:36)
[2018-12-05] MEDS: NovoLOG Insulin Flexpen SUBQ SCH ×4 (06:17→21:38)
[2018-12-05] MEDS: Hydromorphone 0.5mg/0.5ml inj IVP PRN ×2 (07:13→12:11)
--- NOTE | 2018-12-05 07:30 | NUR ---
NURSE NOTES: Received pt from TAMMY TRACEY, Pt is alert and orient x4. pt is in RA , No SOB or acute respiratory distress noted. pt has intact iv access LFA 20G SL. pt has intact dressing on his R foot. all needs attended, bed is locked and is in the lowest position, call light within easy reach. will continue to monitor.
--- NOTE | 2018-12-05 07:38 | NUR ---
HAND-OFF: Report given to TAMMY Jesus.
[2018-12-05 08:00] VITALS: BP 155/78
[2018-12-05] MEDS: metFORMIN 500mg tab ORAL SCH ×2 (08:26→17:20)
[2018-12-05] MEDS: Vitamin D 1000 IU Tab ORAL SCH ×2 (08:27→17:06)
[2018-12-05] MEDS: Losartan 50mg tab ORAL SCH (08:27)
[2018-12-05] MEDS: Docusate 100mg cap ORAL SCH ×2 (08:28→17:06)
[2018-12-05] MEDS: Tylenol #3 tab (300mg/30mg) ORAL PRN (08:28)
[2018-12-05] MEDS: Artificial Tears 1.4% Op Soln BOTH EYES SCH ×2 (08:28→17:19)
[2018-12-05] MEDS: Hydrocortisone 2.5% Oint 30gm TOPIC SCH ×2 (08:28→17:19)
[2018-12-05] MEDS: Enoxaparin 40mg Inj SUBQ SCH (08:29)
[2018-12-05 12:00] VITALS: BP 139/79
[2018-12-05 16:00] VITALS: BP 127/89
--- NOTE | 2018-12-05 16:41 | Nephrology Progress Note ---
Assessment/Plan Problem List: (1) Gait abnormality Assessment: -PT eval (2) HTN (hypertension) Assessment: - bp at goal (3) Hyperglycemia Assessment: -sec to dm2, SSI, 1800 ada, watch bs closely. -bs high , add lantus (4) Chronic ulcer of toes Assessment: - called wound care, pics reviewed, -r/o OM, Iv abx per ID -may need Debrid (5) Renal insufficiency Assessment: - At baseline -avoid nephrotoxins -watch volume status, adjust meds, watch uop, check bone mineral parameters (6) Cellulitis and abscess of foot Assessment: - iv abx as above, ID to decide on length of treatment as snf after dc Subjective ROS Limited/Unobtainable: Yes Subjective pt. seen and examined has VRE. seen by podiatry and ID d/w rn c/o pain in foot started on Neurontin Objective Objective Last 24 Hour Vital Signs Date Time Temp Pulse Resp B/P (MAP) Pulse Ox O2 Delivery O2 Flow Rate FiO2 12/05/18 16:00 98.8 79 18 127/89 (102) 96 12/05/18 12:41 98.5 12/05/18 12:00 98.4 80 17 139/79 (99) 96 12/05/18 09:00 Room Air 12/05/18 08:58 98.5 12/05/18 08:27 155/78 12/05/18 08:27 86 155/78 12/05/18 08:00 98.5 86 19 155/78 (103) 95 12/05/18 04:19 98.7 77 16 121/64 (83) 95 12/05/18 00:00 98.2 85 16 121/72 (88) 93 12/04/18 21:00 Room Air 12/04/18 20:00 98.4 81 16 142/64 (90) 94 Intake and Output 12/04/18 12/05/18 19:00 07:00 Intake Total 410 ml 183.708 ml Output Total 500 ml 1500 ml Balance -90 ml -1316.292 ml Intake Oral 360 ml IV Total 50 ml 183.708 ml Output Urine Total 500 ml 1500 ml # Voids 1 # Bowel Movements 1 Height (Feet): 5 Height (Inches): 6.00 Weight (Pounds): 174 General Appearance: alert, mild distress EENT: PERRL/EOMI, normal ENT inspection, TMs normal Neck: limited range of motion Abdomen: soft Neurologic: insurance advisor II-XII grossly normal, no motor/sensory deficits Fred Kearney M.D. December 05, 2018 16:41
--- NOTE | 2018-12-05 19:33 | NUR ---
HAND-OFF: Report given to TAMMY TRACEY.
--- NOTE | 2018-12-05 19:34 | NUR ---
NURSE NOTES: Received pt from RN Ann Marie, Pt is alert and oriented x4. Pt is on RA , No SOB or acute respiratory distress noted. Appears drowsy. Sitting upright in bed. Will turn q 2. Pt has intact iv access LFA 20G SL. Pt has intact dressing on his R foot/toes., bed is locked and is in the lowest position, bed alarm on. call light within reach. will continue to monitor.
[2018-12-05 19:50] LABS: BASOPHILS % (AUTO) 1.2 % (0.0-2.0); HEMATOCRIT 32.8 % (42.0-52.0); LYMPHOCYTES % (AUTO) 29.1 % (20.0-45.0); MEAN CORPUSCULAR VOLUME 90 FL (80-99); MONOCYTES % (AUTO) 6.9 % (1.0-10.0); NEUTROPHILS % (AUTO) 59.8 % (45.0-75.0); PLATELET COUNT 279 K/UL (150-450); RED BLOOD COUNT 3.64 M/UL (4.70-6.10); RED CELL DISTRIBUTION WIDTH 11.8 % (11.6-14.8); WHITE BLOOD COUNT 9.9 K/UL (4.8-10.8)
[2018-12-05 20:00] VITALS: BP 140/65
[2018-12-05 20:13] LABS: ANION GAP 9 mmol/L (5-15); BLOOD UREA NITROGEN 40 mg/dL (7-18); CALCIUM 8.8 MG/DL (8.5-10.1); CARBON DIOXIDE 25 MMOL/L (21-32); CHLORIDE 105 MMOL/L (98-107); CREATININE 2.1 MG/DL (0.55-1.30); SODIUM 139 MMOL/L (136-145)
[2018-12-05] MEDS: TraZODone 100mg tab ORAL SCH (21:36)
[2018-12-05] MEDS: Donepezil 5mg Tab ORAL SCH (21:36)
[2018-12-05] MEDS: Vancomycin 1 GM in D5W 275 ML IVPB SCH (21:36)
[2018-12-05] MEDS: Levemir Flexpen SUBQ SCH (21:40)
[2018-12-06] VITALS (7 sets, daily range): BP systolic 119–160; BP diastolic 55–79
--- NOTE | 2018-12-06 03:01 | NUR ---
HAND-OFF: Report given to TAMMY Winter
[2018-12-06] MEDS: metroNIDAZOLE 500mg tab ORAL SCH ×3 (05:55→21:06)
[2018-12-06] MEDS: NovoLOG Insulin Flexpen SUBQ SCH ×4 (05:55→21:00)
[2018-12-06] MEDS: sitaGLIPtin 25mg tab ORAL SCH (05:55)
[2018-12-06 08:11] LABS: BASOPHILS % (AUTO) 0.8 % (0.0-2.0); EOSINOPHILS % (AUTO) 2.6 % (0.0-3.0); HEMOGLOBIN 11.7 G/DL (14.2-18.0); LYMPHOCYTES % (AUTO) 24.5 % (20.0-45.0); MEAN CORPUSCULAR VOLUME 90 FL (80-99); MONOCYTES % (AUTO) 6.1 % (1.0-10.0); NEUTROPHILS % (AUTO) 66.1 % (45.0-75.0); PLATELET COUNT 282 K/UL (150-450); RED CELL DISTRIBUTION WIDTH 11.7 % (11.6-14.8); WHITE BLOOD COUNT 9.4 K/UL (4.8-10.8)
[2018-12-06 08:23] LABS: ANION GAP 9 mmol/L (5-15); BLOOD UREA NITROGEN 36 mg/dL (7-18); CALCIUM 9.2 MG/DL (8.5-10.1); CARBON DIOXIDE 27 MMOL/L (21-32); CHLORIDE 105 MMOL/L (98-107); CREATININE 1.8 MG/DL (0.55-1.30); POTASSIUM 4.2 MMOL/L (3.5-5.1); SODIUM 141 MMOL/L (136-145)
--- NOTE | 2018-12-06 09:00 | NUR ---
NURSE NOTES: pt in bed with no sob nor in any form of distress noted. Dressing changed on (R)foot. denies any pain at this time. will continue to monitor
--- NOTE | 2018-12-06 10:14 | NUR ---
MRI RIGHT FOOT COMPLETED.
[2018-12-06] MEDS: Docusate 100mg cap ORAL SCH ×2 (10:42→17:15)
[2018-12-06] MEDS: Losartan 50mg tab ORAL SCH (10:42)
[2018-12-06] MEDS: metFORMIN 500mg tab ORAL SCH ×2 (10:42→17:18)
[2018-12-06] MEDS: Artificial Tears 1.4% Op Soln BOTH EYES SCH ×2 (10:43→17:18)
[2018-12-06] MEDS: Enoxaparin 40mg Inj SUBQ SCH (10:43)
[2018-12-06] MEDS: Hydrocortisone 2.5% Oint 30gm TOPIC SCH ×2 (10:43→17:18)
[2018-12-06] MEDS: Vitamin D 1000 IU Tab ORAL SCH ×2 (10:45→17:18)
--- NOTE | 2018-12-06 11:35 | Diagnostic Imaging Report ---
Indication: Cellulitis of the foot. Open ulcers in the first and third toes Technique: Right forefoot imaging utilizing multiplanar T1 fast spin-echo, proton and T2 fast spin-echo with fat saturation, and STIR. Comparison: None Findings: The tuft of the first distal phalange demonstrates abnormal low T1 signal. There is a greater degree of abnormal T2 signal within the distal phalange. Findings concerning for acute osteomyelitis. The third distal phalange shows abnormal low T1/high T2 signal consistent with osteomyelitis. There is T2 hyperintense signal involving the distal phalange of the second ray with normal T1 signal. This is probably reactive edema. There is skin thickening and generalized subcutaneous edema noted consistent with cellulitis. The ulcers involving the medial dorsal aspect of the first ray and the third toe also noted. IMPRESSION: Suspected acute osteomyelitis involving the distal phalange of the first and third toes. Adjacent ulceration and cellulitis of the forefoot noted
[2018-12-06] MEDS: Vancomycin 750mg/NS 275ml IVPB SCH ×2 (13:43)
--- NOTE | 2018-12-06 13:53 | Anethesia Preoperative Eval ---
Anesthesia Pre-op PMH/ROS General Date of Evaluation: December 06, 2018 Time of Evaluation: 13:48 Anesthesiologist: Zev ASA Score: ASA 4 Mallampati Score Class I : Soft palate, uvula, fauces, pillars visible Class II: Soft palate, uvula, fauces visible Class III: Soft palate, base of uvula visible Class IV: Only hard plate visible Mallampati Classification: Class III Surgeon: Mary Diagnosis: PVD Surgical Procedure: Right Leg Angiogram With Intervention Anesthesia History: none Family History: no anesthesia problems Allergies: Coded Allergies: ACETAMINOPHEN (Verified Allergy, Unknown, 12/02/18) PENICILLINS (Unverified Allergy, Unknown, 12/04/18) Pork (Verified Allergy, Unknown, 12/02/18) Uncoded Allergies: PENICILLIN (Allergy, Unknown, 12/02/18) Medications: see eMAR Patient NPO?: Yes Past Medical History Cardiovascular: Reports: HTN, other - HL, PVD Pulmonary: Reports: other - Pneumonia Gastrointestinal/Genitourinary: Reports: CRI - CKD, Dialysis, other - BPH Neurologic/Psychiatric: Reports: dementia, depression/anxiety Endocrine: Reports: DM Hematology/Immune: Reports: anemia Anesthesia Pre-op Phys. Exam Physician Exam Last Vital Signs Date Time Temp Pulse Resp B/P (MAP) Pulse Ox O2 Delivery O2 Flow Rate FiO2 12/06/18 10:42 131/60 12/06/18 10:42 82 12/06/18 09:29 Room Air 12/06/18 08:00 97.7 17 96 Constitutional: NAD Neurologic: CN 2-12 intact Cardiovascular: RRR Respiratory: CTA Gastrointestinal: S/NT/ND Airway Exam Mallampati Score: Class III MO: limited ROM: limited Teeth: missing, intact Anesthesia Pre-op A/P Labs Hematology Test 12/05/18 19:40 12/06/18 07:20 White Blood Count 9.9 K/UL (4.8-10.8) 9.4 K/UL (4.8-10.8) Red Blood Count 3.64 M/UL (4.70-6.10) L 3.90 M/UL (4.70-6.10) L Hemoglobin 11.0 G/DL (14.2-18.0) L 11.7 G/DL (14.2-18.0) L Hematocrit 32.8 % (42.0-52.0) L 35.0 % (42.0-52.0) L Mean Corpuscular Volume 90 FL (80-99) 90 FL (80-99) Mean Corpuscular Hemoglobin 30.2 PG (27.0-31.0) 29.9 PG (27.0-31.0) Mean Corpuscular Hemoglobin Concent 33.5 G/DL (32.0-36.0) 33.4 G/DL (32.0-36.0) Red Cell Distribution Width 11.8 % (11.6-14.8) 11.7 % (11.6-14.8) Platelet Count 279 K/UL (150-450) 282 K/UL (150-450) Mean Platelet Volume 6.1 FL (6.5-10.1) L 6.3 FL (6.5-10.1) L Neutrophils (%) (Auto) 59.8 % (45.0-75.0) 66.1 % (45.0-75.0) Lymphocytes (%) (Auto) 29.1 % (20.0-45.0) 24.5 % (20.0-45.0) Monocytes (%) (Auto) 6.9 % (1.0-10.0) 6.1 % (1.0-10.0) Eosinophils (%) (Auto) 3.0 % (0.0-3.0) 2.6 % (0.0-3.0) Basophils (%) (Auto) 1.2 % (0.0-2.0) 0.8 % (0.0-2.0) Chemistry Test 12/05/18 19:40 12/06/18 07:20 Sodium Level 139 MMOL/L (136-145) 141 MMOL/L (136-145) Potassium Level 5.0 MMOL/L (3.5-5.1) 4.2 MMOL/L (3.5-5.1) Chloride Level 105 MMOL/L (98-107) 105 MMOL/L (98-107) Carbon Dioxide Level 25 MMOL/L (21-32) 27 MMOL/L (21-32) Anion Gap 9 mmol/L (5-15) 9 mmol/L (5-15) Blood Urea Nitrogen 40 mg/dL (7-18) H 36 mg/dL (7-18) H Creatinine 2.1 MG/DL (0.55-1.30) H 1.8 MG/DL (0.55-1.30) H Estimat Glomerular Filtration Rate mL/min (>60) mL/min (>60) Glucose Level 220 MG/DL (74-106) H 187 MG/DL (74-106) H Calcium Level 8.8 MG/DL (8.5-10.1) 9.2 MG/DL (8.5-10.1) Magnesium Level 1.4 MG/DL (1.8-2.4) L Risk Assessment & Plan Assessment: ASA 4 Plan: GA Pre-Antibiotics Drug: Vincent Byrnes MD December 06, 2018 13:53
--- NOTE | 2018-12-06 14:51 | Infectious Diseases Prog Note ---
Assessment/Plan Assessment/Plan ASSESSMENT AND PLAN: 1. proteus/polymicrobial right foot wound infection/cellulitis with osteomyelitis and on MRI - vancomycin, cefepime flagyl - day # 3 antibiotics - will need 6 weeks iv abx - podiatry f/u, initial bedside debridement done - monitor labs, sr, crp - will need picc line 2. Diabetes mellitus. 3. Hypertension. 4. Elevated creatinine. 5. Chronic renal failure. 6. Diabetes and hypertension treatment per primary. 7. Anemia. 8. Hyperglycemia. Treatment per primary care team. 9. Gait abnormality. 10. Wound care protocol. 11. Allergies to acetaminophen, penicillin, and pork. 12. Social history is negative. 13. Family history is noncontributory. 14. MAR was noted. 15. Case was discussed with RN. 16. Continue treatment per primary and consultants. 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 Subjective Constitutional: Denies: fever HEENT: Denies: congestion Respiratory: Denies: shortness of breath Cardiovascular: Denies: chest pain Gastrointestinal/Abdominal: Denies: nausea, vomiting, diarrhea Genitourinary: Reports: other - + jackson Neurologic: Denies: headache, numbness Psychiatric: Denies: depression Skin: Denies: rash Hematologic: Denies: bleeding Musculoskeletal: Reports: pain - right foot/toe pain Allergies: Coded Allergies: ACETAMINOPHEN (Verified Allergy, Unknown, 12/02/18) PENICILLINS (Unverified Allergy, Unknown, 12/04/18) Pork (Verified Allergy, Unknown, 12/02/18) Uncoded Allergies: PENICILLIN (Allergy, Unknown, 12/02/18) Objective Vital Signs Last 24 Hour Vital Signs Date Time Temp Pulse Resp B/P (MAP) Pulse Ox O2 Delivery O2 Flow Rate FiO2 12/06/18 10:42 131/60 12/06/18 10:42 82 131/60 12/06/18 09:29 Room Air 12/06/18 08:00 97.7 82 17 131/60 (83) 96 12/06/18 06:06 79 119/55 (76) 12/06/18 04:00 97.5 95 17 160/79 (106) 96 12/06/18 00:00 97.2 89 18 152/70 (97) 96 12/05/18 21:00 Room Air 12/05/18 20:00 98.2 87 18 140/65 (90) 95 12/05/18 16:00 98.8 79 18 127/89 (102) 96 Height (Feet): 5 Height (Inches): 6.00 Weight (Pounds): 174 General Appearance: no acute distress HEENT: normocephalic, atraumatic, anicteric, mucous membranes moist Respiratory/Chest: lungs clear, normal breath sounds, no respiratory distress, no accessory muscle use Cardiovascular: normal rate, regular rhythm, no gallop/murmur, no JVD Abdomen: normal bowel sounds, soft, non tender, no organomegaly, non distended Genitourinary: other - + jackson - urine clear Extremities: no cyanosis Skin: no rash Neurologic/Psychiatric: 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 There is a greater degree of abnormal T2 signal within the distal phalange. Findings concerning for acute osteomyelitis. The third distal phalange shows abnormal low T1/high T2 signal consistent with osteomyelitis. There is T2 hyperintense signal involving the distal phalange of the second ray with normal T1 signal. This is probably reactive edema. There is skin thickening and generalized subcutaneous edema noted consistent with cellulitis. The ulcers involving the medial dorsal aspect of the first ray and the third toe also noted. IMPRESSION: Suspected acute osteomyelitis involving the distal phalange of the first and third toes. Adjacent ulceration and cellulitis of the forefoot noted Microbiology Date/Time Source Procedure Growth Status 12/02/18 14:37 Blood Blood Culture - Preliminary NO GROWTH AFTER 72 HOURS Resulted 12/02/18 18:20 Nasal Nares MRSA Culture - Final NO METHICILLIN RESISTANT STAPH AUREUS... Complete 12/04/18 14:45 Foot Right Gram Stain - Final Resulted 12/04/18 14:45 Wound Culture - Preliminary Proteus Mirabilis Resulted Microbiology Date/Time Source Procedure Growth Status 12/04/18 14:45 Foot Right Gram Stain - Final Resulted 12/04/18 14:45 Wound Culture - Preliminary Proteus Mirabilis Resulted Laboratory Tests Test 12/05/18 19:40 12/06/18 07:20 White Blood Count 9.9 K/UL (4.8-10.8) 9.4 K/UL (4.8-10.8) Red Blood Count 3.64 M/UL (4.70-6.10) L 3.90 M/UL (4.70-6.10) L Hemoglobin 11.0 G/DL (14.2-18.0) L 11.7 G/DL (14.2-18.0) L Hematocrit 32.8 % (42.0-52.0) L 35.0 % (42.0-52.0) L Mean Corpuscular Volume 90 FL (80-99) 90 FL (80-99) Mean Corpuscular Hemoglobin 30.2 PG (27.0-31.0) 29.9 PG (27.0-31.0) Mean Corpuscular Hemoglobin Concent 33.5 G/DL (32.0-36.0) 33.4 G/DL (32.0-36.0) Red Cell Distribution Width 11.8 % (11.6-14.8) 11.7 % (11.6-14.8) Platelet Count 279 K/UL (150-450) 282 K/UL (150-450) Mean Platelet Volume 6.1 FL (6.5-10.1) L 6.3 FL (6.5-10.1) L Neutrophils (%) (Auto) 59.8 % (45.0-75.0) 66.1 % (45.0-75.0) Lymphocytes (%) (Auto) 29.1 % (20.0-45.0) 24.5 % (20.0-45.0) Monocytes (%) (Auto) 6.9 % (1.0-10.0) 6.1 % (1.0-10.0) Eosinophils (%) (Auto) 3.0 % (0.0-3.0) 2.6 % (0.0-3.0) Basophils (%) (Auto) 1.2 % (0.0-2.0) 0.8 % (0.0-2.0) Sodium Level 139 MMOL/L (136-145) 141 MMOL/L (136-145) Potassium Level 5.0 MMOL/L (3.5-5.1) 4.2 MMOL/L (3.5-5.1) Chloride Level 105 MMOL/L (98-107) 105 MMOL/L (98-107) Carbon Dioxide Level 25 MMOL/L (21-32) 27 MMOL/L (21-32) Anion Gap 9 mmol/L (5-15) 9 mmol/L (5-15) Blood Urea Nitrogen 40 mg/dL (7-18) H 36 mg/dL (7-18) H Creatinine 2.1 MG/DL (0.55-1.30) H 1.8 MG/DL (0.55-1.30) H Estimat Glomerular Filtration Rate mL/min (>60) mL/min (>60) Glucose Level 220 MG/DL (74-106) H 187 MG/DL (74-106) H Calcium Level 8.8 MG/DL (8.5-10.1) 9.2 MG/DL (8.5-10.1) Vancomycin Level Trough 11.1 ug/mL (5.0-12.0) Magnesium Level 1.4 MG/DL (1.8-2.4) L Current Medications Medications (Trade) Dose Ordered Sig/Sarai Route PRN Reason Start Time Stop Time Status Last Admin Dose Admin Acetaminophen/ Codeine Phosphate (Tylenol #3) 1 tab Q6H PRN ORAL For Pain 12/03/18 15:30 12/10/18 15:29 12/05/18 08:28 Amlodipine Besylate (Norvasc) 5 mg DAILY ORAL 12/03/18 09:00 01/02/19 08:59 12/06/18 10:42 Artificial Tears (Akwa-Tears) 1 drop BID BOTH EYES 12/03/18 09:00 01/02/19 08:59 12/06/18 10:43 Baclofen (Lioresal) 10 mg THREE TIMES A DAY ORAL 12/03/18 09:00 01/02/19 08:59 12/06/18 13:06 Cefepime HCl 2 gm/ Dextrose 50 ml @ 100 mls/hr Q24H IV 12/04/18 18:00 12/11/18 17:59 12/05/18 17:19 Dextrose (Dextrose 50%) 25 ml Q30M PRN IV Hypoglycemia 12/02/18 19:00 01/01/19 18:59 Dextrose (Dextrose 50%) 50 ml Q30M PRN IV Hypoglycemia 12/02/18 19:00 01/01/19 18:59 Docusate Sodium (Colace) 100 mg TWICE A DAY ORAL 12/03/18 09:00 01/02/19 08:59 12/06/18 10:42 Donepezil HCl (Aricept) 5 mg BEDTIME ORAL 12/02/18 21:00 01/01/19 20:59 12/05/18 21:36 Enoxaparin Sodium (Lovenox) 40 mg DAILY SUBQ 12/04/18 09:00 01/03/19 08:59 12/06/18 10:43 Escitalopram Oxalate (Lexapro) 10 mg BEDTIME ORAL 12/02/18 21:00 01/01/19 20:59 12/05/18 21:36 Finasteride (Proscar) 5 mg DAILY ORAL 12/03/18 09:00 01/02/19 08:59 12/06/18 10:42 Gabapentin (Neurontin) 100 mg THREE TIMES A DAY ORAL 12/05/18 13:00 01/04/19 12:59 12/06/18 13:06 Hydrocortisone (Hydrocortisone) 1 applic BID TOPIC 12/03/18 09:00 01/02/19 08:59 12/06/18 10:43 Hydromorphone HCl (Dilaudid) 0.5 mg Q4H PRN IVP For Pain 12/03/18 20:24 12/10/18 20:23 12/05/18 12:11 Insulin Aspart (NovoLOG) BEFORE MEALS AND HS SUBQ 12/02/18 21:00 01/01/19 20:59 12/06/18 13:06 Insulin Detemir (Levemir) 8 units BEDTIME SUBQ 12/05/18 21:00 01/04/19 20:59 12/05/18 21:40 Losartan Potassium (Cozaar) 50 mg DAILY ORAL 12/03/18 09:00 01/02/19 08:59 12/06/18 10:42 Metformin HCl (Glucophage) 500 mg TWICE A DAY ORAL 12/05/18 18:00 01/04/19 17:59 12/06/18 10:42 Metronidazole (Flagyl) 500 mg EVERY 8 HOURS ORAL 12/04/18 22:00 12/11/18 21:59 12/06/18 13:42 Pantoprazole (Protonix) 40 mg DAILY ORAL 12/02/18 19:15 01/01/19 19:14 12/06/18 10:42 Sitagliptin Phosphate (Januvia) 25 mg ACBREAKFAST ORAL 12/06/18 06:30 01/05/19 06:29 12/06/18 05:55 Trazodone HCl (Desyrel) 100 mg BEDTIME ORAL 12/02/18 21:00 01/01/19 20:59 12/05/18 21:36 Vancomycin HCl (Vanco rx to dose) 1 ea DAILY PRN MISC Per rx protocol 12/04/18 16:45 01/03/19 16:44 Vancomycin HCl 750 mg/Sodium Chloride 275 ml @ 183.333 mls/hr Q12HR@0300,1500 IVPB 12/06/18 15:00 12/11/18 14:59 12/06/18 13:43 Vitamin D (Vitamin D) 2,000 intlu TWICE A DAY ORAL 12/03/18 09:00 01/02/19 08:59 12/06/18 10:45 Haroldo Hinojosa MD December 06, 2018 14:51
--- NOTE | 2018-12-06 15:20 | NUR ---
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 RIGHT FOOT OSTEOMYELITIS VS: BP 160/79, P 95, T 97.5, RR 18, SpO2 96 RBC 3.90, H&H 11.7/35.0, BUN 36, CR 1.8 MRI: Suspected acute osteomyelitis involving the distal phalange of the first and third toes. IS:VANCOMYCIN 275ml IVPB FLAGYL 500mg BACLOFEN 10mg NOVOLOG SUBQ GABAPENTIN 100mg LOVENOX 40mg NORVASC 5mG PROSCAR 5mg MED/SURG
--- NOTE | 2018-12-06 19:27 | NUR ---
HAND-OFF: Report given to TAMMY Vargas.
--- NOTE | 2018-12-06 19:30 | NUR ---
NURSE NOTES: Pt is alert and oriented x3. Pt is on RA , No SOB or acute respiratory distress noted. Appears drowsy. Sitting upright in bed. Will turn q 2. Pt has intact iv access LFA 20G SL. Pt has intact dressing on his R foot/toes., bed is locked and is in the lowest position, bed alarm on. call light within reach. will continue to monitor.
[2018-12-06] MEDS: Levemir Flexpen SUBQ SCH (21:00)
[2018-12-06] MEDS: TraZODone 100mg tab ORAL SCH (21:05)
[2018-12-06] MEDS: Donepezil 5mg Tab ORAL SCH (21:06)
--- NOTE | 2018-12-06 21:21 | Nephrology Progress Note ---
Assessment/Plan Problem List: (1) Gait abnormality Assessment: -PT eval (2) HTN (hypertension) Assessment: - bp at goal (3) Hyperglycemia Assessment: -sec to dm2, SSI, 1800 ada, watch bs closely. -bs high , add lantus -hold glucophage before angio (4) Chronic ulcer of toes Assessment: - called wound care, pics reviewed, -r/o OM, Iv abx per ID -may need Debrid (5) Renal insufficiency Assessment: - At baseline -avoid nephrotoxins -watch volume status, adjust meds, watch uop, check bone mineral parameters. -pre med ivf , mucomyst, hold glucophage for contrast exposure (6) Cellulitis and abscess of foot Assessment: - iv abx for 6 weeks, plan for picc line before dc home. -angio in am for pvd dz Subjective ROS Limited/Unobtainable: Yes Subjective pt. seen and examined d/w vascular, plan for angio in am good uop bs noted needs picc line and 6 weeks of iv abx for OM mri noted Objective Objective Last 24 Hour Vital Signs Date Time Temp Pulse Resp B/P (MAP) Pulse Ox O2 Delivery O2 Flow Rate FiO2 12/06/18 20:00 100.1 78 19 133/65 (87) 96 12/06/18 16:00 98.4 86 17 135/77 (96) 97 12/06/18 12:00 98.7 80 17 139/68 (91) 96 12/06/18 10:42 131/60 12/06/18 10:42 82 131/60 12/06/18 09:29 Room Air 12/06/18 08:00 97.7 82 17 131/60 (83) 96 12/06/18 06:06 79 119/55 (76) 12/06/18 04:00 97.5 95 17 160/79 (106) 96 12/06/18 00:00 97.2 89 18 152/70 (97) 96 Intake and Output 12/05/18 12/06/18 19:00 07:00 Intake Total 941.292 ml 515.000 ml Output Total 1300 ml Balance 941.292 ml -785.000 ml IV Total 141.292 ml 275.000 ml Other 800 ml 240 ml Output Urine Total 1300 ml Laboratory Tests 12/06/18 07:20: White Blood Count 9.4, Red Blood Count 3.90L, Hemoglobin 11.7L, Hematocrit 35.0L , Mean Corpuscular Volume 90, Mean Corpuscular Hemoglobin 29.9, Mean Corpuscular Hemoglobin Concent 33.4, Red Cell Distribution Width 11.7, Platelet Count 282, Mean Platelet Volume 6.3L, Neutrophils (%) (Auto) 66.1, Lymphocytes ( %) (Auto) 24.5, Monocytes (%) (Auto) 6.1, Eosinophils (%) (Auto) 2.6, Basophils (%) (Auto) 0.8, Sodium Level 141, Potassium Level 4.2, Chloride Level 105, Carbon Dioxide Level 27, Anion Gap 9, Blood Urea Nitrogen 36H, Creatinine 1.8H, Estimat Glomerular Filtration Rate , Glucose Level 187H, Calcium Level 9.2, Magnesium Level 1.4L Height (Feet): 5 Height (Inches): 6.00 Weight (Pounds): 174 General Appearance: WD/WN EENT: PERRL/EOMI Neck: supple Cardiovascular: normal peripheral pulses, regular rhythm Respiratory/Chest: lungs clear Abdomen: normal bowel sounds 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 December 06, 2018 21:21
[2018-12-06] MEDS: guaiFENesin ER 600mg tab ORAL SCH (21:30)
[2018-12-07] VITALS (10 sets, daily range): BP systolic 111–205; BP diastolic 33–181
[2018-12-07] MEDS: Hydromorphone 0.5mg/0.5ml inj IVP PRN (01:18)
[2018-12-07] MEDS: Vancomycin 750mg/NS 275ml IVPB SCH ×4 (02:53→14:45)
[2018-12-07] MEDS: metroNIDAZOLE 500mg tab ORAL SCH ×3 (05:40→21:48)
[2018-12-07] MEDS: NovoLOG Insulin Flexpen SUBQ SCH ×4 (06:30→22:02)
[2018-12-07] MEDS: sitaGLIPtin 25mg tab ORAL SCH (06:30)
[2018-12-07 07:07] LABS: ANION GAP 7 mmol/L (5-15); BLOOD UREA NITROGEN 30 mg/dL (7-18); CALCIUM 8.7 MG/DL (8.5-10.1); CARBON DIOXIDE 27 MMOL/L (21-32); CHLORIDE 104 MMOL/L (98-107); CREATININE 1.7 MG/DL (0.55-1.30); EOSINOPHILS % (AUTO) 3.1 % (0.0-3.0); HEMOGLOBIN 11.1 G/DL (14.2-18.0); LYMPHOCYTES % (AUTO) 25.8 % (20.0-45.0); MEAN CORPUSCULAR VOLUME 91 FL (80-99); NEUTROPHILS % (AUTO) 63.1 % (45.0-75.0); PLATELET COUNT 264 K/UL (150-450); POTASSIUM 4.3 MMOL/L (3.5-5.1); RED BLOOD COUNT 3.64 M/UL (4.70-6.10); RED CELL DISTRIBUTION WIDTH 12.1 % (11.6-14.8); SODIUM 138 MMOL/L (136-145); WHITE BLOOD COUNT 8.6 K/UL (4.8-10.8)
--- NOTE | 2018-12-07 07:55 | NUR ---
HAND-OFF: Report given to TAMMY Child.
--- NOTE | 2018-12-07 08:49 | Podiatric Progress Note ---
Assessment/Plan Patient Mikey Avalos is a 73 year old male who was admitted on December 02, 2018 at 15:20 with Assessment/Plan A: Right foot OM of distal hallux and third digit, per MRI. DM Renal Dz HTN GERD PVD P: - Pt seen and evaluated. - WBC , 8.6 - Discuss MRI findings with patient regarding Right foot OM of hallux and distal third digit. Advised patient of tx options regarding R foot partial amp of Hallux and third digit vs IV ABx x 6 weeks. Risks and benefits explained for each procedure with peruvian translation. Pt elects to proceed with conservative tx IV ABx x 6 weeks. - Pt to undergo poss re-vasc procedure today. - Cont local wound care, betadine dressing to R foot. - Rec WBAT in surgical shoe upon hospital D/C, and home health nursing for wound care. - No acute surgical intervention required by podiatry. - Please have patient F/U in my clinic one week after hospital discharge. - Podiatry will cont to monitor. Subjective Reason for consult Right foot Cellulitis, OM of distal hallux and third digit. Procedure Performed none Constitutional: no symptoms Allergies: Coded Allergies: ACETAMINOPHEN (Verified Allergy, Unknown, 12/02/18) PENICILLINS (Unverified Allergy, Unknown, 12/04/18) Pork (Verified Allergy, Unknown, 12/02/18) Uncoded Allergies: PENICILLIN (Allergy, Unknown, 12/02/18) Subjective Pt seen bedside with nursing staff for R foot cellulitis and digital OM ( 1st and 3rd ). Pt resting at bedside, relates pain to Right foot. Confirms he has procedure for later today. Objective Exam Last 24 Hour Vital Signs Date Time Temp Pulse Resp B/P (MAP) Pulse Ox O2 Delivery O2 Flow Rate FiO2 12/07/18 04:00 98.5 67 18 124/70 (88) 95 12/07/18 01:48 98.9 12/07/18 00:00 98.9 70 18 111/51 (71) 98 12/06/18 21:00 Room Air 12/06/18 20:00 100.1 78 19 133/65 (87) 96 12/06/18 16:00 98.4 86 17 135/77 (96) 97 12/06/18 12:00 98.7 80 17 139/68 (91) 96 12/06/18 10:42 131/60 5/6/19 10:42 82 131/60 12/06/18 09:29 Room Air Laboratory Tests Test 12/07/18 06:05 White Blood Count 8.6 K/UL (4.8-10.8) Red Blood Count 3.64 M/UL (4.70-6.10) L Hemoglobin 11.1 G/DL (14.2-18.0) L Hematocrit 33.0 % (42.0-52.0) L Mean Corpuscular Volume 91 FL (80-99) Mean Corpuscular Hemoglobin 30.4 PG (27.0-31.0) Mean Corpuscular Hemoglobin Concent 33.4 G/DL (32.0-36.0) Red Cell Distribution Width 12.1 % (11.6-14.8) Platelet Count 264 K/UL (150-450) Mean Platelet Volume 7.1 FL (6.5-10.1) Neutrophils (%) (Auto) 63.1 % (45.0-75.0) Lymphocytes (%) (Auto) 25.8 % (20.0-45.0) Monocytes (%) (Auto) 7.0 % (1.0-10.0) Eosinophils (%) (Auto) 3.1 % (0.0-3.0) H Basophils (%) (Auto) 1.0 % (0.0-2.0) Sodium Level 138 MMOL/L (136-145) Potassium Level 4.3 MMOL/L (3.5-5.1) Chloride Level 104 MMOL/L (98-107) Carbon Dioxide Level 27 MMOL/L (21-32) Anion Gap 7 mmol/L (5-15) Blood Urea Nitrogen 30 mg/dL (7-18) H Creatinine 1.7 MG/DL (0.55-1.30) H Estimat Glomerular Filtration Rate mL/min (>60) Glucose Level 213 MG/DL (74-106) H Calcium Level 8.7 MG/DL (8.5-10.1) Microbiology Date/Time Source Procedure Growth Status 12/02/18 14:37 Blood Blood Culture - Preliminary NO GROWTH AFTER 72 HOURS Resulted 12/02/18 18:20 Nasal Nares MRSA Culture - Final NO METHICILLIN RESISTANT STAPH AUREUS... Complete 12/04/18 14:45 Foot Right Gram Stain - Final Resulted 12/04/18 14:45 Wound Culture - Preliminary Proteus Mirabilis Resulted Exam Narrative Focused RLE exam: Right foot: pulses +1/4 DP/PT, necrotic tissue noted distal hallux and third digit, ascending erythema is noted, normal temp differential, (+) POP to distal hallux and third digit. Simón Escobedo DPM December 07, 2018 08:49
[2018-12-07] MEDS: Enoxaparin 40mg Inj SUBQ SCH (09:00)
[2018-12-07] MEDS: Vitamin D 1000 IU Tab ORAL SCH (09:26)
[2018-12-07] MEDS: Artificial Tears 1.4% Op Soln BOTH EYES SCH ×2 (09:26→18:00)
[2018-12-07] MEDS: Losartan 50mg tab ORAL SCH (09:27)
[2018-12-07] MEDS: Docusate 100mg cap ORAL SCH ×2 (09:27→18:00)
[2018-12-07] MEDS: guaiFENesin ER 600mg tab ORAL SCH ×2 (09:27→18:30)
[2018-12-07] MEDS: Hydrocortisone 2.5% Oint 30gm TOPIC SCH ×2 (09:28→18:00)
--- NOTE | 2018-12-07 10:43 | NUR ---
NURSE NOTES: pt in bed with no sob nor in any form of distress noted. Dressing intact and clean on (R)foot with no drainage nor bleeding. kept clean and comfortable. bed in lowest position. call light within reach at all time. kept NPO for procedure. will continue to monitor.
--- NOTE | 2018-12-07 12:07 | NUR ---
NURSE NOTES: pt went down for sx picked up by transporter with stable condition.
[2018-12-07] MEDS ORDERED: Heparin 5000 units/ml inj ONE (12:08)
[2018-12-07] MEDS ORDERED: Lidocaine 1% Plain 30 ml INJ ONE ×3 (12:08→16:43)
[2018-12-07] MEDS ORDERED: Omnipaque-300 100ml vial INJ ONE (12:47)
[2018-12-07] MEDS ORDERED: Sodium Chloride 10ml vial INJ ONE (12:55)
[2018-12-07] MEDS ORDERED: Lidocaine 1% MPF 10mg/ml 5ml ONE (12:55)
[2018-12-07] MEDS ORDERED: fentaNYL 100 mcg/2 mL IV ONE ×2 (12:55→15:29)
[2018-12-07] MEDS ORDERED: Propofol 200mg/20ml IV ONE (12:55)
--- NOTE | 2018-12-07 12:56 | Pre-Procedure Note/Attestation ---
Pre-Procedure Note/Attestation Complete Prior to Procedure Procedure Narrative: Aortogram with runoff, possible intervention Indications for Procedure Pre-Operative Diagnosis: PVD, foot ulcer Attestation I attest that I discussed the nature of the procedure; its benefits; risks and complications; and alternatives (and the risks and benefits of such alternatives ), prior to the procedure, with the patient (or the patient's legal logistics service representative). I attest that, if there was a reasonable possibility of needing a blood transfusion, the patient (or the patient's legal logistics service representative) was given the [facility] standardized written summary, pursuant to the [place] [employer] [place] Blood Safety Act ([place] Health and Safety Code # 1645, as amended). I attest that I re-evaluated the patient just prior to the surgery and that there has been no change in the patient's H&P, except as documented below: Robinson Hernandez MD December 07, 2018 12:56
[2018-12-07] MEDS ORDERED: Sterile Water Irrig 1000ml IRRIG ONE (13:00)
[2018-12-07] MEDS ORDERED: LR 1000ml ONE (13:00)
[2018-12-07] MEDS ORDERED: NS Irrig 1000ml ONE (13:00)
[2018-12-07] MEDS ORDERED: Phenylephrine 10mg/ml Vial ONE (13:00)
--- NOTE | 2018-12-07 13:42 | Immediate Post-Op Evaluation ---
Immediate Post-Op Evalulation Immediate Post-Op Evalulation Procedure: Right Leg Angiogram With Intervention Date of Evaluation: December 07, 2018 Time of Evaluation: 18:05 IV Fluids: 1000 LR Blood Products: 0 Estimated Blood Loss: 75 Urinary Output: 400 Blood Pressure Systolic: 159 Blood Pressure Diastolic: 89 Pulse Rate: 89 Respiratory Rate: 15 - Mech Vent O2 Sat by Pulse Oximetry: 100 Temperature (Fahrenheit): 97.4 Pain Score (1-10): 2 Nausea: No Vomiting: No Complications 0 Patient Status: awake, reacts, patent, extubated, none Hydration Status: adequate Dru Grams Ancef IV Given Within 1 Hr of Incision: Yes Time Given: 13:26 Vincent Brothers MD December 07, 2018 13:42
[2018-12-07] MEDS ORDERED: Heparin Sod 1000 units/ml 10ml ONE (14:47)
--- NOTE | 2018-12-07 15:36 | NUR ---
RD ASSESSMENT & RECOMMENDATIONS SEE CARE ACTIVITY FOR COMPLETE ASSESSMENT DAILY ESTIMATED NEEDS: Needs based on DM, OM/ 67kg abw 25-30 kcals/kg total kcals 1-1.3 g protein/kg 67-87 g total protein 25-30 mL/kg total fluid mLs NUTRITION DIAGNOSIS: * Increased protein intake needs R/T wound healing as evidenced by pt w/ rt foot OM. * Altered nutrition related lab values R/T diabetes, CKD as evidenced by elev BGs and POC glu (177 257 234 269 218), elev creat (1.7). CURRENT DIET:NPO for procedure PO DIET RECOMMENDATIONS: LOW NA, CCHO MED/ texture as tolerated ADDITIONAL RECOMMENDATIONS: * Calibrated bedscale wt for accurate CBW * Consider increasing long acting insulin for improved glycemic control * Monitor lytes, replete as needed (low mag) * Rec MVI x 1, Vit C 500mg QD and Francesco 1pkt BID for wound healing
[2018-12-07] MEDS ORDERED: Flumazenil 0.1mg/ml 5ml Inj IV ONE (16:01)
[2018-12-07 16:56] LABS: BASOPHILS % (AUTO) 0.5 % (0.0-2.0); EOSINOPHILS % (AUTO) 0.7 % (0.0-3.0); HEMATOCRIT 27.6 % (42.0-52.0); HEMOGLOBIN 9.7 G/DL (14.2-18.0); MEAN CORPUSCULAR VOLUME 87 FL (80-99); MONOCYTES % (AUTO) 5.4 % (1.0-10.0); NEUTROPHILS % (AUTO) 78.5 % (45.0-75.0); PLATELET COUNT 223 K/UL (150-450); RED BLOOD COUNT 3.16 M/UL (4.70-6.10); RED CELL DISTRIBUTION WIDTH 11.5 % (11.6-14.8)
[2018-12-07 17:25] LABS: ALANINE AMINOTRANSFERASE 17 U/L (12-78); ALBUMIN 2.6 G/DL (3.4-5.0); ALBUMIN/GLOBULIN RATIO 0.7 (1.0-2.7); ALKALINE PHOSPHATASE 75 U/L (46-116); AMYLASE 80 U/L (25-115); ANION GAP 12 mmol/L (5-15); ASPARTATE AMINO TRANSFERASE 18 U/L (15-37); BILIRUBIN,TOTAL 0.3 MG/DL (0.2-1.0); BLOOD UREA NITROGEN 32 mg/dL (7-18); CALCIUM 8.2 MG/DL (8.5-10.1); CARBON DIOXIDE 23 MMOL/L (21-32); CHLORIDE 101 MMOL/L (98-107); POTASSIUM 4.6 MMOL/L (3.5-5.1); SODIUM 136 MMOL/L (136-145)
--- NOTE | 2018-12-07 17:47 | Brief Operative Note ---
Immediate Post Operative Note Operative Note Pre-op Diagnosis: PVD, foot ulcer Procedure: aortogram with runoff Post-op Diagnosis: aortoiliac occlusion Post-op Diagnosis: same as pre-op Findings: other - see full report Surgeon: Lucille Hernandez Anesthesiologist: Loreta Brothers Anesthesia: general Specimen: none Complications: none Condition: stable Fluids: see anesth. record Estimated Blood Loss: minimal Drains: none Implant(s) used?: No Robinson Hernandez MD December 07, 2018 17:47
--- NOTE | 2018-12-07 18:10 | NUR ---
NURSE NOTES: Received report from OR nurse, King Melendez. Patient transferred to bed 246-C. s/p Aortograph with Runoff by Dr. Hernandez. Orally intubated ETT 8.0/20cm, on SIMV. Patient is having tonic clonic seizures lasting for more than 10 mins. Notified PMD, see order history. Patient has a introducer/A-line on left AC, stabilized by arm board, asymptomatic and hep locked. Mottled noted BLE. BP 178/89, HR 107, Temp 100.9, RR 18, SPo2 100%. Bed locked, alarmed and in lowest position. Dr. Hernandez at bedside, wants to continue heparin drip and remove A-line tomorrow. STAT head CT w/o, KUB, XCR.
[2018-12-07] MEDS ORDERED: Heparin 5000 units/ml inj IV ONE (18:15)
--- NOTE | 2018-12-07 18:20 | NUR ---
NURSE NOTES: Received report from TAMMY Child from [facility] where patient came from before OR. Belongings checklist done and placed beside bedside. insulin pen to be re-labeled.
[2018-12-07] MEDS ORDERED: Heparin 25,000u/D5W 500ml 500 ML IV SCH ×2 (18:22→22:00)
[2018-12-07] MEDS ORDERED: Vitamin D 1000 IU Tab ORAL SCH (18:30)
--- NOTE | 2018-12-07 18:40 | NUR ---
HAND-OFF: Report given to TAMMY Martinez All belongings given and checked .
[2018-12-07 18:51] LABS: BASOPHILS % (AUTO) 0.5 % (0.0-2.0); EOSINOPHILS % (AUTO) 0.2 % (0.0-3.0); HEMATOCRIT 33.8 % (42.0-52.0); HEMOGLOBIN 11.2 G/DL (14.2-18.0); LYMPHOCYTES % (AUTO) 10.9 % (20.0-45.0); MEAN CORPUSCULAR VOLUME 91 FL (80-99); NEUTROPHILS % (AUTO) 83.4 % (45.0-75.0); PLATELET COUNT 259 K/UL (150-450); RED BLOOD COUNT 3.73 M/UL (4.70-6.10); RED CELL DISTRIBUTION WIDTH 11.9 % (11.6-14.8); WHITE BLOOD COUNT 15.3 K/UL (4.8-10.8)
--- NOTE | 2018-12-07 18:59 | Nephrology Progress Note ---
Assessment/Plan Problem List: (1) Gait abnormality (2) HTN (hypertension) Assessment: -resume meds to better control, will use prn iv Hydralazine (3) Hyperglycemia Assessment: -follow bs in icu while npo, cont insulin, ivf for now (4) Chronic ulcer of toes Assessment: -chronic OM on Iv abx -s/p angio with severe disease, no intervention for now, has collaterals -treat with iv heparin over night per vascular (5) Renal insufficiency Assessment: -has ATN + ckd, cont ivf, bp control, avoid nsaids. -s/p contrast , cont mucomyst, watch volume, uop closely -adjust meds to lower crcrl. (6) Cellulitis and abscess of foot Assessment: - iv abx for 6 weeks, plan for picc line before dc home. -angio per above (7) Seizure Assessment: - neuro called -s/p ativan -head ct, eeg (8) Respiratory failure, acute Assessment: - has metabolic acidosis -pulmonary called -bicarb for now, lower fio2 Subjective ROS Limited/Unobtainable: Yes Subjective pt. seen and examined in icu pt. had angio with vascular and kept on vent. In icu had vomiting x 1 and now having right arm tremor ? seizure. pt given ativan x1, neuro paged. Pt. had abg, pulmonary called. elevated bp in icu head ct ordered. Objective Objective Last 24 Hour Vital Signs Date Time Temp Pulse Resp B/P (MAP) Pulse Ox O2 Delivery O2 Flow Rate FiO2 12/07/18 18:13 99 18 Mechanical Ventilator 50.0 100 12/07/18 18:10 99 18 100 12/07/18 17:49 89 15 100 12/07/18 12:00 98.6 68 18 138/77 (97) 96 12/07/18 09:27 156/79 12/07/18 09:27 100 156/79 12/07/18 09:00 Room Air 12/07/18 08:00 98.3 100 18 156/79 (104) 96 12/07/18 04:00 98.5 67 18 124/70 (88) 95 12/07/18 01:48 98.9 12/07/18 00:00 98.9 70 18 111/51 (71) 98 12/06/18 21:00 Room Air 12/06/18 20:00 100.1 78 19 133/65 (87) 96 Intake and Output 12/06/18 12/07/18 19:00 07:00 Intake Total 1425.000 ml 800.0003 ml Output Total 1600 ml Balance -175.000 ml 800.0003 ml Intake Oral 1100 ml IV Total 325.000 ml 800.0003 ml Output Urine Total 1600 ml # Bowel Movements 2 Laboratory Tests 12/07/18 06:05: White Blood Count 8.6, Red Blood Count 3.64L, Hemoglobin 11.1L, Hematocrit 33.0L , Mean Corpuscular Volume 91, Mean Corpuscular Hemoglobin 30.4, Mean Corpuscular Hemoglobin Concent 33.4, Red Cell Distribution Width 12.1, Platelet Count 264, Mean Platelet Volume 7.1, Neutrophils (%) (Auto) 63.1, Lymphocytes (% ) (Auto) 25.8, Monocytes (%) (Auto) 7.0, Eosinophils (%) (Auto) 3.1H, Basophils (%) (Auto) 1.0, Sodium Level 138, Potassium Level 4.3, Chloride Level 104, Carbon Dioxide Level 27, Anion Gap 7, Blood Urea Nitrogen 30H, Creatinine 1.7H, Estimat Glomerular Filtration Rate , Glucose Level 213H, Calcium Level 8.7 12/07/18 14:35: White Blood Count 13.0#H, Red Blood Count 3.16L, Hemoglobin 9.7L, Hematocrit 27.6L, Mean Corpuscular Volume 87, Mean Corpuscular Hemoglobin 30.6, Mean Corpuscular Hemoglobin Concent 35.1, Red Cell Distribution Width 11.5L, Platelet Count 223, Mean Platelet Volume 6.3L, Neutrophils (%) (Auto) 78.5H, Lymphocytes (%) (Auto) 15.0L, Monocytes (%) (Auto) 5.4, Eosinophils (%) (Auto) 0.7, Basophils (%) (Auto) 0.5 12/07/18 16:26: Arterial Blood pH 7.384, Arterial Blood Partial Pressure CO2 31.0L, Arterial Blood Partial Pressure O2 235.3H, Arterial Blood HCO3 18.1L, Arterial Blood Oxygen Saturation 98.7, Arterial Blood Base Excess -6.0L, Pancho Test N/a 12/07/18 16:35: Sodium Level 136, Potassium Level 4.6, Chloride Level 101, Carbon Dioxide Level 23, Anion Gap 12, Blood Urea Nitrogen 32H, Creatinine 2.0H, Estimat Glomerular Filtration Rate , Glucose Level 295H, Calcium Level 8.2L, Activated Partial Thromboplast Time > 150*H, Lactic Acid Level 3.60H, Total Bilirubin 0.3, Aspartate Amino Transf (AST/SGOT) 18, Alanine Aminotransferase (ALT/SGPT) 17, Alkaline Phosphatase 75, Troponin I 0.035, Total Protein 6.2L, Albumin 2.6L, Globulin 3.6, Albumin/Globulin Ratio 0.7L, Amylase Level 80 12/07/18 18:32: Arterial Blood pH 7.265L, Arterial Blood Partial Pressure CO2 32.2L, Arterial Blood Partial Pressure O2 > 494.5H, Arterial Blood HCO3 14.3*L, Arterial Blood Oxygen Saturation 99.4, Arterial Blood Base Excess -11.5*L, Pancho Test Positive 12/07/18 18:40: White Blood Count [Pending], Red Blood Count [Pending], Hemoglobin [Pending], Hematocrit [Pending], Mean Corpuscular Volume [Pending], Mean Corpuscular Hemoglobin [Pending], Mean Corpuscular Hemoglobin Concent [Pending], Red Cell Distribution Width [Pending], Platelet Count [Pending], Mean Platelet Volume [ Pending], Neutrophils (%) (Auto) [Pending], Lymphocytes (%) (Auto) [Pending], Monocytes (%) (Auto) [Pending], Eosinophils (%) (Auto) [Pending], Basophils (%) (Auto) [Pending], Vancomycin Level Trough [Pending] Height (Feet): 5 Height (Inches): 6.00 Weight (Pounds): 174 General Appearance: WD/WN, confused EENT: PERRL/EOMI, pale conjunctivae Neck: non-tender, supple Cardiovascular: normal rate Respiratory/Chest: decreased breath sounds Abdomen: decreased bowel sounds Extremities: normal range of motion Neurologic: unresponsive Fred Kearney M.D. December 07, 2018 18:59
--- NOTE | 2018-12-07 19:29 | NUR ---
HAND-OFF: Report given to TAMMY Nguyen using SBAR.
--- NOTE | 2018-12-07 19:29 | NUR ---
RESPIRATORY NOTE: Received pt on SIMV 12, 550VT, 100%, PEEP +5, PS 10. Pt came up from OR, intubated w/ ETT 8.0 @ 20cm lipline, secured by anchorfast. Post-intubation ABG done (see lab for results). Vent settings changed per MD Zev. Pt now on AC 12, 550VT, 50%, PEEP +5. Pt sedated at this time, no restraints, pt unable to move left hand. B/S joana. clear/diminished, nonproductive cough, no secretions. Vent plugged into red outlet, ambubag at bedside. Pt in no apparent distress at this time. Will continue to monitor pt.
[2018-12-07] MEDS ORDERED: Vancomycin 750 MG in NS 275 ML IVPB SCH (19:30)
--- NOTE | 2018-12-07 19:35 | Consultation ---
History of Present Illness General Date patient seen: December 07, 2018 Chief Complaint: Possible Postoperative Seizure Present Illness HPI Mikey Avalos is a 73 year old male with an active foot infection with suspicion of osteomyelitis who was admitted to the ICU following a possible seizure episode this afternoon. He is currently admitted to the ICU at [facility] for care and management. 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 He is now intubated on vent support and unable to provide history. He is unresponsive to verbal or noxious stimuli and is not following commands. He does not withdraw or respond to any stimulus applied to his extremities. Allergies: Coded Allergies: ACETAMINOPHEN (Verified Allergy, Unknown, 12/02/18) PENICILLINS (Unverified Allergy, Unknown, 12/04/18) Pork (Verified Allergy, Unknown, 12/02/18) Uncoded Allergies: PENICILLIN (Allergy, Unknown, 12/02/18) Medication History Scheduled Amlodipine Besylate* (Amlodipine Besylate*), 5 MG ORAL DAILY, (Reported) Baclofen* (Baclofen*), 10 MG ORAL THREE TIMES A DAY, (Reported) Cholecalciferol (Vitamin D3)* (Vitamin D*), 2,000 UNITS ORAL TWICE A DAY, ( Reported) Dextran 70/Hypromellose (Artificial Tears Eye Drops*), 1 DROP BOTH EYES BID, ( Reported) Docusate Sodium* (Docusate Sodium*), 100 MG ORAL TWICE A DAY, (Reported) Donepezil Hcl* (Donepezil Hcl*), 5 MG ORAL BEDTIME, (Reported) Escitalopram Oxalate* (Lexapro*), 10 MG ORAL BEDTIME, (Reported) Finasteride* (Proscar*), 5 MG ORAL DAILY, (Reported) Hydrocortisone Oint 2.5% (Hydrocortisone Oint 2.5%), 1 APPLIC TP BID, (Reported) Insulin Glargine (Lantus), 25 UNITS SUBQ BID, (Reported) Losartan Potassium* (Losartan Potassium*), 50 MG ORAL DAILY, (Reported) Metformin Hcl* (Metformin Hcl*), 500 MG ORAL TWICE A DAY, (Reported) Omeprazole (Omeprazole), 20 MG ORAL DAILY, (Reported) Trazodone* (Trazodone*), 100 MG ORAL BEDTIME, (Reported) Scheduled PRN Acetaminophen* (Acetaminophen 325MG Tablet*), 650 MG ORAL Q4H PRN for For Pain, (Reported) Miscellaneous Medications Latanoprost/Pf (Latanoprost 0.005% Eye Drop), 1 DROP OP, (Reported) Patient History Limited by: medical condition History Provided By: Medical Record Healthcare decision maker N Resuscitation status Full Code Advanced Directive on File No Past Medical/Surgical History Past Medical/Surgical History: (1) Chronic ulcer of toes (2) HTN (hypertension) (3) Cellulitis and abscess of foot Review of Systems All Other Systems: negative except mentioned in HPI ROS Narrative Unable to ascertain from patient. Physical Exam General Appearance: WD/WN, no apparent distress, lethargic - Comatose, obese Lines, tubes and drains: peripheral, endotracheal tube, jackson cath HEENT: normocephalic, atraumatic, anicteric, mucous membranes moist, PERRL, other - Dysconjugate gaze Neck: normal alignment, supple, normal inspection Neurologic: abnormal CN, unresponsiveness, aphasia, other - No motor response to vigorous stimuli Musculoskeletal: normal muscle bulk, no effusion Last 24 Hour Vital Signs Date Time Temp Pulse Resp B/P (MAP) Pulse Ox O2 Delivery O2 Flow Rate FiO2 12/07/18 19:26 102 20 50 12/07/18 18:13 99 18 Mechanical Ventilator 50.0 100 12/07/18 18:10 99 18 100 12/07/18 17:49 89 15 100 12/07/18 12:00 98.6 68 18 138/77 (97) 96 12/07/18 09:27 156/79 12/07/18 09:27 100 156/79 12/07/18 09:00 Room Air 12/07/18 08:00 98.3 100 18 156/79 (104) 96 12/07/18 04:00 98.5 67 18 124/70 (88) 95 12/07/18 01:48 98.9 12/07/18 00:00 98.9 70 18 111/51 (71) 98 12/06/18 21:00 Room Air 12/06/18 20:00 100.1 78 19 133/65 (87) 96 Intake and Output 12/06/18 12/07/18 19:00 07:00 Intake Total 1425.000 ml 800.0003 ml Output Total 1600 ml Balance -175.000 ml 800.0003 ml Intake Oral 1100 ml IV Total 325.000 ml 800.0003 ml Output Urine Total 1600 ml # Bowel Movements 2 Laboratory Tests Test 12/07/18 06:05 12/07/18 14:35 12/07/18 16:26 12/07/18 16:35 White Blood Count 8.6 K/UL (4.8-10.8) 13.0 K/UL (4.8-10.8) #H Red Blood Count 3.64 M/UL (4.70-6.10) L 3.16 M/UL (4.70-6.10) L Hemoglobin 11.1 G/DL (14.2-18.0) L 9.7 G/DL (14.2-18.0) L Hematocrit 33.0 % (42.0-52.0) L 27.6 % (42.0-52.0) L Mean Corpuscular Volume 91 FL (80-99) 87 FL (80-99) Mean Corpuscular Hemoglobin 30.4 PG (27.0-31.0) 30.6 PG (27.0-31.0) Mean Corpuscular Hemoglobin Concent 33.4 G/DL (32.0-36.0) 35.1 G/DL (32.0-36.0) Red Cell Distribution Width 12.1 % (11.6-14.8) 11.5 % (11.6-14.8) L Platelet Count 264 K/UL (150-450) 223 K/UL (150-450) Mean Platelet Volume 7.1 FL (6.5-10.1) 6.3 FL (6.5-10.1) L Neutrophils (%) (Auto) 63.1 % (45.0-75.0) 78.5 % (45.0-75.0) H Lymphocytes (%) (Auto) 25.8 % (20.0-45.0) 15.0 % (20.0-45.0) L Monocytes (%) (Auto) 7.0 % (1.0-10.0) 5.4 % (1.0-10.0) Eosinophils (%) (Auto) 3.1 % (0.0-3.0) H 0.7 % (0.0-3.0) Basophils (%) (Auto) 1.0 % (0.0-2.0) 0.5 % (0.0-2.0) Sodium Level 138 MMOL/L (136-145) 136 MMOL/L (136-145) Potassium Level 4.3 MMOL/L (3.5-5.1) 4.6 MMOL/L (3.5-5.1) Chloride Level 104 MMOL/L (98-107) 101 MMOL/L (98-107) Carbon Dioxide Level 27 MMOL/L (21-32) 23 MMOL/L (21-32) Anion Gap 7 mmol/L (5-15) 12 mmol/L (5-15) Blood Urea Nitrogen 30 mg/dL (7-18) H 32 mg/dL (7-18) H Creatinine 1.7 MG/DL (0.55-1.30) H 2.0 MG/DL (0.55-1.30) H Estimat Glomerular Filtration Rate mL/min (>60) mL/min (>60) Glucose Level 213 MG/DL (74-106) H 295 MG/DL (74-106) H Calcium Level 8.7 MG/DL (8.5-10.1) 8.2 MG/DL (8.5-10.1) L Arterial Blood pH 7.384 (7.350-7.450) Arterial Blood Partial Pressure CO2 31.0 mmHg (35.0-45.0) L Arterial Blood Partial Pressure O2 235.3 mmHg (75.0-100.0) H Arterial Blood HCO3 18.1 mmol/L (22.0-26.0) L Arterial Blood Oxygen Saturation 98.7 % (95-100) Arterial Blood Base Excess -6.0 (-2-2) L Pancho Test N/a Activated Partial Thromboplast Time > 150 SEC (23-33) *H Lactic Acid Level 3.60 mmol/L (0.4-2.0) H Total Bilirubin 0.3 MG/DL (0.2-1.0) Aspartate Amino Transf (AST/SGOT) 18 U/L (15-37) Alanine Aminotransferase (ALT/SGPT) 17 U/L (12-78) Alkaline Phosphatase 75 U/L (46-116) Troponin I 0.035 ng/mL (0.000-0.056) Total Protein 6.2 G/DL (6.4-8.2) L Albumin 2.6 G/DL (3.4-5.0) L Globulin 3.6 g/dL Albumin/Globulin Ratio 0.7 (1.0-2.7) L Amylase Level 80 U/L (25-115) Test 12/07/18 18:32 12/07/18 18:40 Arterial Blood pH 7.265 (7.350-7.450) Arterial Blood Partial Pressure CO2 32.2 mmHg (35.0-45.0) L Arterial Blood Partial Pressure O2 > 494.5 mmHg (75.0-100.0) H Arterial Blood HCO3 14.3 mmol/L (22.0-26.0) *L Arterial Blood Oxygen Saturation 99.4 % (95-100) Arterial Blood Base Excess -11.5 (-2-2) *L Pancho Test Positive White Blood Count 15.3 K/UL (4.8-10.8) H Red Blood Count 3.73 M/UL (4.70-6.10) L Hemoglobin 11.2 G/DL (14.2-18.0) L Hematocrit 33.8 % (42.0-52.0) L Mean Corpuscular Volume 91 FL (80-99) Mean Corpuscular Hemoglobin 30.1 PG (27.0-31.0) Mean Corpuscular Hemoglobin Concent 33.1 G/DL (32.0-36.0) Red Cell Distribution Width 11.9 % (11.6-14.8) Platelet Count 259 K/UL (150-450) Mean Platelet Volume 5.8 FL (6.5-10.1) L Neutrophils (%) (Auto) 83.4 % (45.0-75.0) H Lymphocytes (%) (Auto) 10.9 % (20.0-45.0) L Monocytes (%) (Auto) 5.0 % (1.0-10.0) Eosinophils (%) (Auto) 0.2 % (0.0-3.0) Basophils (%) (Auto) 0.5 % (0.0-2.0) Magnesium Level 1.1 MG/DL (1.8-2.4) L Vancomycin Level Trough 18.0 ug/mL (5.0-12.0) H Height (Feet): 5 Height (Inches): 6.00 Weight (Pounds): 174 Medications Current Medications Medications (Trade) Dose Ordered Sig/Sarai Route PRN Reason Start Time Stop Time Status Last Admin Dose Admin Acetaminophen/ Codeine Phosphate (Tylenol #3) 1 tab Q6H PRN ORAL For Pain 12/07/18 21:30 12/10/18 15:29 Amlodipine Besylate (Norvasc) 5 mg DAILY ORAL 12/08/18 09:00 01/02/19 08:59 Artificial Tears (Akwa-Tears) 1 drop BID BOTH EYES 12/07/18 18:00 01/02/19 08:59 Baclofen (Lioresal) 10 mg THREE TIMES A DAY ORAL 12/07/18 18:00 01/02/19 08:59 Cefepime HCl 2 gm/ Dextrose 50 ml @ 100 mls/hr Q24H IV 12/07/18 18:00 12/11/18 17:59 Dextrose (Dextrose 50%) 25 ml Q30M PRN IV Hypoglycemia 12/07/18 18:00 01/01/19 18:59 Dextrose (Dextrose 50%) 50 ml Q30M PRN IV Hypoglycemia 12/07/18 18:00 01/01/19 18:59 Docusate Sodium (Colace) 100 mg TWICE A DAY ORAL 12/07/18 18:00 01/02/19 08:59 Donepezil HCl (Aricept) 5 mg BEDTIME ORAL 12/07/18 21:00 01/01/19 20:59 Escitalopram Oxalate (Lexapro) 10 mg BEDTIME ORAL 12/07/18 21:00 01/01/19 20:59 Finasteride (Proscar) 5 mg DAILY ORAL 12/08/18 09:00 01/02/19 08:59 Gabapentin (Neurontin) 100 mg THREE TIMES A DAY ORAL 12/07/18 18:00 01/04/19 12:59 Guaifenesin (Mucinex ER) 600 mg TWICE A DAY ORAL 12/07/18 18:30 01/05/19 18:29 Heparin Sodium/ Dextrose 500 ml @ 28.413 mls/ hr ADJUST PER PROTOCOL IV 12/07/18 18:22 01/06/19 18:21 Hydralazine HCl (Apresoline) 10 mg Q4H PRN IV sbp>160 12/07/18 19:00 01/06/19 18:59 Hydrocortisone (Hydrocortisone) 1 applic BID TOPIC 12/07/18 18:00 01/02/19 08:59 Hydromorphone HCl (Dilaudid) 0.5 mg Q4H PRN IVP For Pain 12/07/18 20:30 12/10/18 20:23 Insulin Aspart (NovoLOG) BEFORE MEALS AND HS SUBQ 12/07/18 21:00 01/01/19 20:59 Insulin Detemir (Levemir) 8 units BEDTIME SUBQ 12/07/18 21:00 01/04/19 20:59 Lorazepam (Ativan 2mg/ml 1ml) 2 mg Q2HR PRN IVP For Seizures 12/07/18 18:15 12/14/18 18:14 Losartan Potassium (Cozaar) 50 mg DAILY ORAL 12/08/18 09:00 01/02/19 08:59 Metronidazole (Flagyl) 500 mg EVERY 8 HOURS ORAL 12/07/18 22:00 12/11/18 21:59 Pantoprazole (Protonix) 40 mg DAILY ORAL 12/08/18 09:00 01/01/19 19:14 Sodium Bicarbonate 50 ml/ Sodium Chloride 1,050 ml @ 100 mls/hr [id number] IV 12/07/18 20:00 01/06/19 19:59 Vancomycin HCl (Vanco rx to dose) 1 ea DAILY PRN MISC Per rx protocol 12/08/18 09:00 01/03/19 16:44 Vancomycin HCl 1 gm/Dextrose 275 ml @ 183.708 mls/hr Q24H IVPB 12/07/18 21:00 12/12/18 20:59 Assessment/Plan Problem List: (1) Peripheral arterial disease ICD Codes: I73.9 - Peripheral vascular disease, unspecified SNOMED: 138523999, 020601122 (2) Peripheral artery occlusion ICD Codes: I77.9 - Disorder of arteries and arterioles, unspecified SNOMED: 840706596 (3) Peripheral artery insufficiency ICD Codes: I73.9 - Peripheral vascular disease, unspecified SNOMED: 315010110 (4) Severe peripheral arterial disease ICD Codes: I73.9 - Peripheral vascular disease, unspecified SNOMED: 777719584 (5) Seizure ICD Codes: R56.9 - Unspecified convulsions SNOMED: 32350158 (6) Sepsis ICD Codes: A41.9 - Sepsis, unspecified organism SNOMED: 12062847 (7) Hypotension ICD Codes: I95.9 - Hypotension, unspecified SNOMED: 41783614 (8) Respiratory failure, acute ICD Codes: J96.00 - Acute respiratory failure, unspecified whether with hypoxia or hypercapnia SNOMED: 20979805 (9) Cellulitis and abscess of foot ICD Codes: L03.119 - Cellulitis of unspecified part of limb; L02.619 - Cutaneous abscess of unspecified foot SNOMED: 709425146, 997260263, 743369435 (10) Acute encephalopathy Assessment & Plan: Poor neurological exam, currently intubated with no motor responses. Pupils sluggish bilaterally EEG routine ordered MRI Brain w/o contrast Q2 Neuro Obs Na 135-145 Maintain Normoglycemia with ISS Maintain normothermia ICD Codes: G93.40 - Encephalopathy, unspecified SNOMED: 74126447, 979344251 Assessment/Plan: Order EEG Dora Bates N.P. December 07, 2018 19:35
[2018-12-07] MEDS: LORazepam Inj 2mg/ml 1ml IVP PRN ×2 (20:00→20:01)
--- NOTE | 2018-12-07 20:01 | NUR ---
NURSE NOTES: Ativan given for seizures at 1830 and another one given at 1999. Unable to scan but witnessed by Levar charge nurse.
[2018-12-07] MEDS ORDERED: Hydromorphone 0.5mg/0.5ml inj IVP PRN (20:30)
[2018-12-07 20:49] LABS: ANION GAP 20 mmol/L (5-15); BLOOD UREA NITROGEN 34 mg/dL (7-18); CALCIUM 8.7 MG/DL (8.5-10.1); CARBON DIOXIDE 15 MMOL/L (21-32); CHLORIDE 100 MMOL/L (98-107); CREATININE 2.6 MG/DL (0.55-1.30); POTASSIUM 5.1 MMOL/L (3.5-5.1); SODIUM 135 MMOL/L (136-145)
[2018-12-07 20:53] LABS: ALANINE AMINOTRANSFERASE 23 U/L (12-78); ALBUMIN 3.1 G/DL (3.4-5.0); ALBUMIN/GLOBULIN RATIO 0.8 (1.0-2.7); ALKALINE PHOSPHATASE 90 U/L (46-116); AMYLASE 183 U/L (25-115); ASPARTATE AMINO TRANSFERASE 62 U/L (15-37); BILIRUBIN,TOTAL 0.5 MG/DL (0.2-1.0)
[2018-12-07] MEDS ORDERED: Levemir Flexpen SUBQ SCH (21:00)
[2018-12-07] MEDS ORDERED: Vancomycin 1 GM in D5W 275 ML IVPB SCH (21:00)
[2018-12-07] MEDS ORDERED: TraZODone 100mg tab ORAL SCH (21:00)
--- NOTE | 2018-12-07 21:14 | NUR ---
NURSE NOTES: Spoke with MD Hernandez and notified him of current labs and Heads CT. ordered to start heparin gtt per pharmacy protocol. Orders read back and confirmed by
--- NOTE | 2018-12-07 21:17 | NUR ---
NURSE NOTES: Called and spoke with MD Cartwright at this time and notified him of Lactic acid 9.2. MD Ordered Blood cultures x2 at this time.
[2018-12-07] MEDS ORDERED: Tylenol #3 tab (300mg/30mg) ORAL PRN (21:30)
[2018-12-07] MEDS: Sodium Bicarbonate 50 ML in Sodium Chloride 1,000 ML IV SCH (21:40)
[2018-12-07] MEDS: Donepezil 5mg Tab ORAL SCH (21:48)
[2018-12-08] VITALS (19 sets, daily range): BP systolic 90–179; BP diastolic 42–81
[2018-12-08 05:34] LABS: HEMATOCRIT 32.5 % (42.0-52.0); HEMOGLOBIN 10.7 G/DL (14.2-18.0); MEAN CORPUSCULAR VOLUME 93 FL (80-99); PLATELET COUNT 246 K/UL (150-450); RED BLOOD COUNT 3.48 M/UL (4.70-6.10); RED CELL DISTRIBUTION WIDTH 12.7 % (11.6-14.8); WHITE BLOOD COUNT 16.2 K/UL (4.8-10.8)
[2018-12-08] MEDS: NovoLOG Insulin Flexpen SUBQ SCH ×4 (05:34→21:40)
[2018-12-08] MEDS: metroNIDAZOLE 500mg tab ORAL SCH (05:37)
[2018-12-08 05:51] LABS: ANION GAP 18 mmol/L (5-15); BLOOD UREA NITROGEN 41 mg/dL (7-18); CALCIUM 8.1 MG/DL (8.5-10.1); CARBON DIOXIDE 17 MMOL/L (21-32); CHLORIDE 100 MMOL/L (98-107); CREATININE 3.9 MG/DL (0.55-1.30); POTASSIUM 5.6 MMOL/L (3.5-5.1); SODIUM 135 MMOL/L (136-145)
[2018-12-08] MEDS ORDERED: sitaGLIPtin 25mg tab ORAL SCH (06:30)
[2018-12-08] MEDS ORDERED: Heparin 25,000u/D5W 500ml 500 ML IV SCH ×4 (07:15→22:15)
--- NOTE | 2018-12-08 07:20 | NUR ---
NURSE NOTES: Received pt from TAMMY Nguyen. opens eyes spontaneously but slowly. Responds to voice only, more alert today. Patient is orally intubated ETT 8.0/20cm at lip line. AC 12/TV550/Fio2 30%/PEEP5, RR21. Arterial line on left brachial, dressing clean and intact. Art line BP 143/70. x2 IV sites on RFA 20G running heparin drip at 22.099ml/hr and bicarb@100ml/hr. No signs of bleeding. abdomen is large, round, distended and firm. OGT in place, NPO and clamped. BLE mottled, cold to touch. BUE hot to touch. Ax temp 101.6, tylenol #3 given as per ordered. FC draining minimal amt of yellow urine. bilateral wrist restarints in place, skin in tact. side rails padded, sxn at bedside for sz precautions. Bed locked, alarmed and in lowest position.
--- NOTE | 2018-12-08 08:14 | NUR ---
HAND-OFF: Report given to hetal sommers.
[2018-12-08] MEDS: Docusate 100mg cap ORAL SCH ×2 (08:19→18:30)
[2018-12-08] MEDS: Artificial Tears 1.4% Op Soln BOTH EYES SCH ×2 (08:20→18:31)
[2018-12-08] MEDS: Losartan 50mg tab ORAL SCH (08:20)
[2018-12-08] MEDS: guaiFENesin ER 600mg tab ORAL SCH ×2 (08:21→18:30)
[2018-12-08] MEDS: Hydrocortisone 2.5% Oint 30gm TOPIC SCH ×2 (08:21→18:00)
--- NOTE | 2018-12-08 08:49 | Diagnostic Imaging Report ---
Indication: Seizure, altered mental status Technique: Continuous helical CT scanning of the head was performed utilizing automated exposure control without intravenous contrast material. Axial and coronal reconstructions were obtained. Comparison: None CT dose: Total DLP 1452.91 mGycm; CTDI vol 70.38 mGy Findings: There is no acute intracranial hemorrhage, mass effect or cortical edema. There is no shift of midline structures. There is a small focus of encephalomalacia in the right frontal lobe which is likely on the basis of chronic ischemia (series 3 image 25-26). The ventricles, cisterns and sulci are prominent consistent with atrophy. Periventricular hypoattenuation is seen, a nonspecific finding. There are atherosclerotic vascular calcifications. Visualized mastoid air cells and paranasal sinuses are unremarkable. No depressed calvarial fracture. IMPRESSION: No evidence of acute intracranial hemorrhage, mass effect or midline shift. Small focal area of low attenuation/encephalomalacia in the right frontal lobe likely representing sequela of remote ischemia. MRI may be obtained for more sensitive evaluation as clinically indicated. Atrophy and nonspecific periventricular hypoattenuation suggestive of chronic ischemic microvascular changes. This corresponds with the preliminary report. The CT scanner at [facility] is accredited by the [employer] and the scans are performed using protocols designed to limit radiation exposure to as low as reasonably achievable to attain images of sufficient resolution adequate for diagnostic evaluation.
[2018-12-08] MEDS ORDERED: Enoxaparin 40mg Inj SUBQ SCH (09:00)
--- NOTE | 2018-12-08 09:38 | Critical Care Progress Note ---
Assessment/Plan Assessment/Plan 1. The patient has right foot and multiple toe cellulitis, infected wounds, rule out osteo. 2. Diabetes mellitus. 3. Hypertension. 4. Respiratory failure, acute 5. Chronic renal failure. 6. Diabetes 7. Anemia. 8. Hypertension PLAN care noted IV antibiotics per ID respiratory care Ventilatory support and try to wean supportive care suction DVT prophylaxis oxygen therapy prognosis guarded medications/laboratory data/nursing notes/ICU care reviewed in detail note reviewed and edited care discussed with RN and RT ICU time spent 45 minutes Critical Care - Subjective Interval Events: asked to follow and assist with management of vent ROS Limited/Unobtainable: Yes Condition: critical EKG Rhythm: Sinus Rhythm I&O: Intake and Output 12/07/18 12/08/18 18:59 06:59 Intake Total 225 ml 1456.307 ml Output Total 1000 ml Balance 225 ml 456.307 ml IV Total 225 ml 1456.307 ml Output Urine Total 1000 ml # Bowel Movements 2 Critical Care - Objective ET-Tube: 8.0 ET Position: 20 Last 24 Hour Vital Signs Date Time Temp Pulse Resp B/P (MAP) Pulse Ox O2 Delivery O2 Flow Rate FiO2 12/08/18 09:20 118 20 40 12/08/18 08:20 174/80 12/08/18 08:19 111 147/58 12/08/18 07:14 114 21 40 12/08/18 05:30 114 25 40 12/08/18 05:21 174/80 12/08/18 03:21 116 19 40 12/08/18 02:00 113 18 164/66 (98) 98 179/70 (106) 12/08/18 01:10 112 19 40 12/08/18 01:00 113 17 157/66 (96) 97 169/67 (101) 12/08/18 00:00 Mechanical Ventilator 12/08/18 00:00 99.0 113 21 146/81 (102) 99 172/66 (101) 12/07/18 23:07 114 24 40 12/07/18 23:00 112 23 134/65 (88) 99 162/63 (96) 12/07/18 22:00 112 24 125/33 (63) 99 156/61 (92) 12/07/18 21:00 109 23 121/56 (77) 96 171/66 (101) 12/07/18 20:54 110 24 50 12/07/18 20:31 205/181 12/07/18 20:00 Mechanical Ventilator 12/07/18 20:00 98.5 106 20 184/56 (98) 100 205/181 (189) 12/07/18 19:26 102 20 50 12/07/18 19:00 100 19 185/62 (103) 100 189/62 (104) 12/07/18 18:13 99 18 Mechanical Ventilator 50.0 100 12/07/18 18:10 99 18 100 12/07/18 17:49 89 15 100 12/07/18 12:00 98.6 68 18 138/77 (97) 96 Labs: GENERAL: acutely ill. HEAD AND NECK: Neck is supple. No jugular venous distention. Normocephalic. LUNGS: Clear bilaterally. No rhonchi or rales. HEART: RRR without MRG ABDOMEN: Soft. Positive bowel sounds. Nontender. MUSCULOSKELETAL: gangrene right foot GENITOURINARY: No Ng. No CVA tenderness. NEUROLOGIC: nonfocal Objective: ill appearing on vent ETT in place clear breath sounds bilaterally without rhonchi or wheeze [id number] without MRG NABS nontender no HSM no CC some mottling gangrene sedated nonfocal Micro: Microbiology Date/Time Source Procedure Growth Status 12/07/18 22:10 Sputum Induced Gram Stain - Final Resulted 12/07/18 22:10 Sputum Induced Sputum Culture Pending Resulted Accucheck: 461 Sandor Baron MD December 08, 2018 09:38
[2018-12-08] MEDS: Sodium Bicarbonate 50 ML in Sodium Chloride 1,000 ML IV SCH ×2 (09:48→18:31)
--- NOTE | 2018-12-08 10:01 | Diagnostic Imaging Report ---
APPROVED REPORT CPT Code: 24996 Present Symptoms Comments: Screening BILATERAL: Imaging reveals a patent deep venous system bilaterally. There is no evidence of thrombus within the common femoral, superficial femoral, popliteal or tibial segments. The greater saphenous veins are within normal limits. Doppler indicates normal spontaneous flow within these segments.
--- NOTE | 2018-12-08 10:25 | NUR ---
NURSE NOTES: Reported lab results to . Received orders for lasix 40mg ivp x1, bmp @1500, 14 units novolog ivp now, lantus 10units bid. read back given and verified. Dr. Hernandez making rounds and at pt bedside. would like to leave A-line in until later today. Called son on facesheet but voicemail is full. endorsed to STACY swanson for assistance. Pt temp is 101.0, cooling measures applied.
[2018-12-08] MEDS ORDERED: Insulin Human Regular 100units/ml 3ml IV ONE (10:30)
[2018-12-08] MEDS: Levemir Flexpen SUBQ SCH ×2 (10:59→21:38)
--- NOTE | 2018-12-08 11:03 | NUR ---
NURSE NOTES: Ax temp 102.0, cooling blanket applied. x1 formed BM. Art-line BP reads 112/45, MAP 66. Ativan given at 1000 for BUE tenseness and increased HR.
--- NOTE | 2018-12-08 11:32 | Diagnostic Imaging Report ---
Indication: Respiratory failure. Status post intubation. Technique: XRAY Chest 1v Comparison: 12/02/2018 Findings: Interval endotracheal intubation. Tip of the ET tube approximately 4.5 cm above the she. Enteric tube is also been placed with the tip in the distal stomach. Heart size and mediastinal contours are stable. Atherosclerotic calcifications again noted in the aorta. No focal airspace consolidation is identified. No pleural effusion or pneumothorax. Degenerative changes are noted in the spine. No acute osseous abnormality. Impression: Satisfactory endotracheal and enteric intubation. This corresponds with the [facility] preliminary report.
--- NOTE | 2018-12-08 11:33 | Diagnostic Imaging Report ---
Indication: Nasogastric intubation Technique: XRAY Abdomen 1v Comparison: None FINDINGS/IMPRESSION: Nasogastric tube tip terminates in the region of the gastric antrum. Degenerative changes noted in the spine. No definite focal consolidation noted in the visualized lower lungs. This corresponds with the [facility] preliminary report.
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
--- NOTE | 2018-12-08 13:51 | NUR ---
NURSE NOTES: PTT >150, spoke to pharmacist Laura. per protocol stop for 1 hour and start again at 10 units/kg/hr. Next timed PTT @2000. Afebrile, rectal temp 97.0, turned and repositioned. Large BM passed.
--- NOTE | 2018-12-08 15:30 | NUR ---
NURSE NOTES: ABG drawn and reported to Dr. Baron. received orders to change AC 18 and redraw abg in 30 mins.
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
--- NOTE | 2018-12-08 15:53 | 48 Hour Post Anesthesia Eval ---
Post Anesthesia Evaluation Procedure: Right Leg Angiogram With Intervention Date of Evaluation: December 08, 2018 Time of Evaluation: 15:49 Blood Pressure Systolic: 132 0: 76 Pulse Rate: 86 Respiratory Rate: 16 Temperature (Fahrenheit): 97.2 O2 Sat by Pulse Oximetry: 98 Airway: other - intubated on vent Nausea: No Vomiting: No Pain Intensity: 0 Hydration Status: adequate Cardiopulmonary Status: no pressors Mental Status/LOC: other - sedated to tolerat ETT Follow-up Care/Observations: bilateral lower extremities cold R>L unable to feel peripheral pulses Post-Anesthesia Complications: none Follow-up care needed: N/A Willie Stinson MD December 08, 2018 15:53
--- NOTE | 2018-12-08 16:31 | NUR ---
NURSE NOTES: per Dr. Hernandez, arterial line will be taken out tomorrow morning by him.
--- NOTE | 2018-12-08 16:40 | Nephrology Progress Note ---
Assessment/Plan Problem List: (1) Gait abnormality (2) HTN (hypertension) Assessment: - con tprn hydralazine -hold arb with arf and hyperkalemia (3) Hyperglycemia Assessment: -follow bs in icu while npo, cont insulin, ivf for now, added lantus (4) Chronic ulcer of toes Assessment: -chronic OM on Iv abx -s/p angio with severe disease, no intervention for now, has collaterals -treat with iv heparin over night per vascular (5) Renal insufficiency Assessment: -has ATN + ckd, cont ivf, bp control, avoid nsaids. -s/p contrast , cont mucomyst, watch volume, uop closely -adjust meds to lower crcrl. -may need hd, developing oliguric atn, try lasix, repeat K, control BS closely (6) Cellulitis and abscess of foot Assessment: - iv abx for 6 weeks, plan for picc line before dc home. -angio per above (7) Seizure Assessment: - neuro c/s noted -s/p ativan -head ct, eeg (8) Respiratory failure, acute Assessment: - has metabolic acidosis -cont bicarb with ivf, may need hd for acidosis -lower fio2 -pulmonary eval appreciated -cxr and vent settings reviewed Subjective ROS Limited/Unobtainable: Yes Constitutional: Reports: fever, malaise Subjective pt. seen and examined in icu pt no longer having seizures, d/w rn uop has dropped BS igh, started on SSI MS slightly better pt seen by pulmonary, neuro vascular called for need for temporary hd catheter Objective Objective Last 24 Hour Vital Signs Date Time Temp Pulse Resp B/P (MAP) Pulse Ox O2 Delivery O2 Flow Rate FiO2 12/08/18 16:00 98.0 103 18 116/48 (70) 100 12/08/18 15:53 86 16 98 12/08/18 15:29 104 18 40 12/08/18 15:00 102 18 130/55 (80) 100 12/08/18 14:12 97.6 12/08/18 14:00 99 17 115/45 (68) 100 12/08/18 13:00 102 21 141/53 (82) 100 12/08/18 12:42 101 28 40 12/08/18 12:00 97.6 101 150/60 (90) 12/08/18 11:29 100 19 40 5/8/19 11:00 105 21 115/48 (70) 99 12/08/18 10:00 112 21 127/52 (77) 98 12/08/18 09:20 118 20 40 12/08/18 09:00 101.6 112 21 147/59 (88) 98 12/08/18 08:50 99.1 12/08/18 08:20 174/80 12/08/18 08:19 111 147/58 12/08/18 08:00 101.6 114 21 148/59 (88) 98 12/08/18 07:14 114 21 40 12/08/18 07:00 101.6 115 21 148/61 (90) 97 12/08/18 05:30 114 25 40 12/08/18 05:21 174/80 12/08/18 03:21 116 19 40 12/08/18 02:00 113 18 164/66 (98) 98 179/70 (106) 12/08/18 01:10 112 19 40 12/08/18 01:00 113 17 157/66 (96) 97 169/67 (101) 12/08/18 00:00 Mechanical Ventilator 12/08/18 00:00 99.0 113 21 146/81 (102) 99 172/66 (101) 12/07/18 23:07 114 24 40 12/07/18 23:00 112 23 134/65 (88) 99 162/63 (96) 12/07/18 22:00 112 24 125/33 (63) 99 156/61 (92) 12/07/18 21:00 109 23 121/56 (77) 96 171/66 (101) 12/07/18 20:54 110 24 50 12/07/18 20:31 205/181 12/07/18 20:00 Mechanical Ventilator 12/07/18 20:00 98.5 106 20 184/56 (98) 100 205/181 (189) 12/07/18 19:26 102 20 50 12/07/18 19:00 100 19 185/62 (103) 100 189/62 (104) 12/07/18 18:13 99 18 Mechanical Ventilator 50.0 100 12/07/18 18:10 99 18 100 12/07/18 18:00 100.6 123 150/63 (92) 12/07/18 17:49 89 15 100 Intake and Output 12/07/18 12/08/18 19:00 07:00 Intake Total 225 ml 1556.307 ml Output Total 220 ml 800 ml Balance 5 ml 756.307 ml IV Total 225 ml 1556.307 ml Output Urine Total 220 ml 800 ml # Bowel Movements 2 Laboratory Tests 12/07/18 18:32: Arterial Blood pH 7.265L, Arterial Blood Partial Pressure CO2 32.2L, Arterial Blood Partial Pressure O2 > 494.5H, Arterial Blood HCO3 14.3*L, Arterial Blood Oxygen Saturation 99.4, Arterial Blood Base Excess -11.5*L, Pancho Test Positive 12/07/18 18:40: White Blood Count 15.3H, Red Blood Count 3.73L, Hemoglobin 11.2L, Hematocrit 33.8L, Mean Corpuscular Volume 91, Mean Corpuscular Hemoglobin 30.1, Mean Corpuscular Hemoglobin Concent 33.1, Red Cell Distribution Width 11.9, Platelet Count 259, Mean Platelet Volume 5.8L, Neutrophils (%) (Auto) 83.4H, Lymphocytes (%) (Auto) 10.9L, Monocytes (%) (Auto) 5.0, Eosinophils (%) (Auto) 0.2, Basophils (%) (Auto) 0.5, Sodium Level 135L, Potassium Level 5.1, Chloride Level 100, Carbon Dioxide Level 15L, Anion Gap 20H, Blood Urea Nitrogen 34H, Creatinine 2.6H, Estimat Glomerular Filtration Rate , Glucose Level 359H, Calcium Level 8.7, Magnesium Level 1.1L, Total Bilirubin 0.5, Aspartate Amino Transf (AST/SGOT) 62H, Alanine Aminotransferase (ALT/SGPT) 23, Alkaline Phosphatase 90, Troponin I 0.036, Total Protein 7.2, Albumin 3.1L, Globulin 4.1 , Albumin/Globulin Ratio 0.8L, Amylase Level 183H, Lipase 118, Vancomycin Level Trough 18.0H 12/07/18 20:40: Lactic Acid Level 9.20H 12/08/18 04:30: White Blood Count 16.2H, Red Blood Count 3.48L, Hemoglobin 10.7L, Hematocrit 32.5L, Mean Corpuscular Volume 93, Mean Corpuscular Hemoglobin 30.6, Mean Corpuscular Hemoglobin Concent 32.8, Red Cell Distribution Width 12.7, Platelet Count 246, Mean Platelet Volume 6.8, Neutrophils (%) (Auto) , Lymphocytes (%) ( Auto) , Monocytes (%) (Auto) , Eosinophils (%) (Auto) , Basophils (%) (Auto) , Sodium Level 135L, Potassium Level 5.6H, Chloride Level 100, Carbon Dioxide Level 17L, Anion Gap 18H, Blood Urea Nitrogen 41H, Creatinine 3.9H, Estimat Glomerular Filtration Rate , Glucose Level 446H, Calcium Level 8.1L, Magnesium Level 1.5L, Lactic Acid Level 6.60H, Differential Total Cells Counted 100, Neutrophils % (Manual) 80H, Lymphocytes % (Manual) 5L, Monocytes % (Manual) 3, Eosinophils % (Manual) 0, Basophils % (Manual) 0, Band Neutrophils 12H, Nucleated Red Blood Cells 1, Platelet Estimate Adequate, Platelet Morphology Normal, Red Blood Cell Morphology Normal, Activated Partial Thromboplast Time > 150*H, Thyroid Stimulating Hormone (TSH) 0.329L 12/08/18 05:50: Lactic Acid Level 4.40H 12/08/18 09:56: Arterial Blood pH 7.355, Arterial Blood Partial Pressure CO2 14.7*L, Arterial Blood Partial Pressure O2 119.6H, Arterial Blood HCO3 8.0*L, Arterial Blood Oxygen Saturation 97.7, Arterial Blood Base Excess -15.5*L, Pancho Test N/a 12/08/18 13:00: Activated Partial Thromboplast Time > 150*H 12/08/18 14:20: Arterial Blood pH 7.251L, Arterial Blood Partial Pressure CO2 28.1L, Arterial Blood Partial Pressure O2 119.9H, Arterial Blood HCO3 12.1*L, Arterial Blood Oxygen Saturation 97.6, Arterial Blood Base Excess -13.7*L, Pancho Test Positive 12/08/18 15:25: Sodium Level [Pending], Potassium Level [Pending], Chloride Level [Pending], Carbon Dioxide Level [Pending], Blood Urea Nitrogen [Pending], Creatinine [ Pending], Estimat Glomerular Filtration Rate [Pending], Glucose Level [Pending] , Calcium Level [Pending] 12/08/18 15:54: Arterial Blood pH 7.317L, Arterial Blood Partial Pressure CO2 27.5L, Arterial Blood Partial Pressure O2 109.4H, Arterial Blood HCO3 13.8*L, Arterial Blood Oxygen Saturation 97.4, Arterial Blood Base Excess -11.0*L, Pancho Test Positive Height (Feet): 5 Height (Inches): 6.00 Weight (Pounds): 175 General Appearance: confused EENT: PERRL/EOMI, pale conjunctivae Cardiovascular: normal rate Respiratory/Chest: decreased breath sounds, accessory muscle use Neurologic: no motor/sensory deficits Fred Kearney M.D. December 08, 2018 16:40
[2018-12-08 17:47] LABS: ANION GAP 17 mmol/L (5-15); BLOOD UREA NITROGEN 51 mg/dL (7-18); CALCIUM 7.7 MG/DL (8.5-10.1); CARBON DIOXIDE 16 MMOL/L (21-32); CHLORIDE 103 MMOL/L (98-107); CREATININE 5.1 MG/DL (0.55-1.30); SODIUM 137 MMOL/L (136-145)
[2018-12-08 17:49] LABS: POTASSIUM 6.4 MMOL/L (3.5-5.1)
--- NOTE | 2018-12-08 17:50 | NUR ---
NURSE NOTES: arterial line BP 87/43, MAP 48. patient is less responsive. pupils are non-reactive. Notified Dr Kearney. Received orders to insert central line and levophed.
[2018-12-08] MEDS ORDERED: Sodium Bicarbonate 50ml Carp IVP SCH (19:15)
--- NOTE | 2018-12-08 19:27 | NUR ---
RESPIRATORY NOTE: Pt was received on vent settings AC/VC 12, 550 Vt, 40%, PEEP +5. Intubated w/ 8.0 ETT @ 20 cm at the lip. Secured by anchorfast. Breath sounds were bilateral clear/diminished. Pt has non-productive cough with no secretions. Vent plugged into red outlet, ambubag present at bedside. No respiratory distress noted. Will continue to monitor pt closely Addendum: 12/09/18 at 0602 by Ryan Boo RT Meant to type Vent settings back up rate of 18, instead of 12.
--- NOTE | 2018-12-08 19:33 | NUR ---
NURSE NOTES: K=6.4, notified Dr Villegas. Received orders for 15g kayexalate ngt and bicarb x1 amp ivp, endorsed to PM shift. read back given and verified. Dr. Thomas inserted left subclavian TLC. CXR obtained and confirmed placement. OK to use per Dr. Thomas. Endorsed care to TAMMY Nguyen. BP 101/44.
--- NOTE | 2018-12-08 19:40 | Operative Note - PDOC ---
Operative Note Operative Note Date of Operation/Procedure: December 08, 2018 Pre-op Diagnosis: Sepsis, hypotension, poor venous access, tachycardia Procedure: left subclavian central venous catheter insertion Post-op Diagnosis: same as pre-op Surgeon: ute Anesthesia: local Specimen: none Complications: none Condition: unstable Estimated Blood Loss: minimal Drains: none Implant(s) used?: No Indications for Procedure Please refer to consult note for detail emergency central line placement necessary for septic patient in ICU hypotensive and tachycardic. medically necessary and placed emergently in ICU for care plan in full code documented patient Description of Procedure Patient made comfortable in ICU with monitoring and staff present. time out performed and all instruments noted. left chest wall prepped and draped in standard surgical fashion. 1%lidocaine with epi infiltrated in proposed site. using finder needle the left subclavian vein was cannulated on first stick. good venous flow identified. guidewire placed over needle and needle removed. small skin incision made over guidewire. dilator used and tunnel dilated. triple lumen central venous catheter placed over guidewire without complication. guidewire removed and discarded. all ports flushed and aspirated without issues. line sutured in place and dressings applied. patient tolerated procedure well. CXR obtained post procedure. will cont with care of line per protocol Maurice Thomas December 08, 2018 19:40
--- NOTE | 2018-12-08 19:48 | Consultation ---
History of Present Illness General Date patient seen: December 08, 2018 Chief Complaint: Skin Rash/Abscess Reason for Consultation: venous access Present Illness HPI 73 year old male with multiple medical comorbidities who is currently admitted to the ICU at [facility] for care and management. Patient intubated on vent support and unable to provide history. Patient recently underwent vascular intervention and noted severe peripheral disease. Patient has active foot osteo /infection being evaluated and followed by podiatry. Currently becoming more septic with leukocytosis, tachycardia, hypotension. Needs urgent venous access for critical care management, pressors, and meds/fluids. surgery called to evaluate and assist with care. patient seen, chart reviewed, patient examined. Allergies: Coded Allergies: ACETAMINOPHEN (Verified Allergy, Unknown, 12/02/18) PENICILLINS (Unverified Allergy, Unknown, 12/04/18) Pork (Verified Allergy, Unknown, 12/02/18) Uncoded Allergies: PENICILLIN (Allergy, Unknown, 12/02/18) Medication History Scheduled Amlodipine Besylate* (Amlodipine Besylate*), 5 MG ORAL DAILY, (Reported) Baclofen* (Baclofen*), 10 MG ORAL THREE TIMES A DAY, (Reported) Cholecalciferol (Vitamin D3)* (Vitamin D*), 2,000 UNITS ORAL TWICE A DAY, ( Reported) Dextran 70/Hypromellose (Artificial Tears Eye Drops*), 1 DROP BOTH EYES BID, ( Reported) Docusate Sodium* (Docusate Sodium*), 100 MG ORAL TWICE A DAY, (Reported) Donepezil Hcl* (Donepezil Hcl*), 5 MG ORAL BEDTIME, (Reported) Escitalopram Oxalate* (Lexapro*), 10 MG ORAL BEDTIME, (Reported) Finasteride* (Proscar*), 5 MG ORAL DAILY, (Reported) Hydrocortisone Oint 2.5% (Hydrocortisone Oint 2.5%), 1 APPLIC TP BID, (Reported) Insulin Glargine (Lantus), 25 UNITS SUBQ BID, (Reported) Losartan Potassium* (Losartan Potassium*), 50 MG ORAL DAILY, (Reported) Metformin Hcl* (Metformin Hcl*), 500 MG ORAL TWICE A DAY, (Reported) Omeprazole (Omeprazole), 20 MG ORAL DAILY, (Reported) Trazodone* (Trazodone*), 100 MG ORAL BEDTIME, (Reported) Scheduled PRN Acetaminophen* (Acetaminophen 325MG Tablet*), 650 MG ORAL Q4H PRN for For Pain, (Reported) Miscellaneous Medications Latanoprost/Pf (Latanoprost 0.005% Eye Drop), 1 DROP OP, (Reported) Patient History Limited by: medical condition History Provided By: Medical Record, PMD Healthcare decision maker N Resuscitation status Full Code Advanced Directive on File No Past Medical/Surgical History Past Medical/Surgical History: (1) Hyperglycemia (2) Chronic ulcer of toes (3) Renal insufficiency (4) Gait abnormality (5) HTN (hypertension) (6) Cellulitis and abscess of foot (7) Seizure (8) Respiratory failure, acute Review of Systems ROS Narrative cannot obtain given medical condition Physical Exam General Appearance: mild distress Lines, tubes and drains: endotracheal tube HEENT: normocephalic, other Neck: normal inspection Respiratory/Chest: decreased breath sounds, on vent Cardiovascular/Chest: tachycardia, other Abdomen: soft, no organomegaly, no mass Extremities: slow capillary refill, other Skin Exam: cyanotic, mottled Neurologic: unresponsiveness, other Last 24 Hour Vital Signs Date Time Temp Pulse Resp B/P (MAP) Pulse Ox O2 Delivery O2 Flow Rate FiO2 12/08/18 19:27 121 29 40 12/08/18 18:00 117 18 95/48 (64) 100 12/08/18 17:14 105 18 40 12/08/18 17:00 107 18 105/44 (64) 100 12/08/18 16:00 98.0 103 18 116/48 (70) 100 12/08/18 15:53 86 16 98 12/08/18 15:29 104 18 40 12/08/18 15:00 102 18 130/55 (80) 100 12/08/18 14:12 97.6 12/08/18 14:00 99 17 115/45 (68) 100 12/08/18 13:00 102 21 141/53 (82) 100 12/08/18 12:42 101 28 40 12/08/18 12:00 97.6 101 150/60 (90) 12/08/18 11:29 100 19 40 12/08/18 11:00 105 21 115/48 (70) 99 12/08/18 10:00 112 21 127/52 (77) 98 12/08/18 09:20 118 20 40 12/08/18 09:00 101.6 112 21 147/59 (88) 98 12/08/18 08:50 99.1 12/08/18 08:20 174/80 12/08/18 08:19 111 147/58 12/08/18 08:00 101.6 114 21 148/59 (88) 98 12/08/18 07:14 114 21 40 12/08/18 07:00 101.6 115 21 148/61 (90) 97 12/08/18 05:30 114 25 40 12/08/18 05:21 174/80 12/08/18 03:21 116 19 40 12/08/18 02:00 113 18 164/66 (98) 98 179/70 (106) 12/08/18 01:10 112 19 40 12/08/18 01:00 113 17 157/66 (96) 97 169/67 (101) 12/08/18 00:00 Mechanical Ventilator 12/08/18 00:00 99.0 113 21 146/81 (102) 99 172/66 (101) 12/07/18 23:07 114 24 40 12/07/18 23:00 112 23 134/65 (88) 99 162/63 (96) 12/07/18 22:00 112 24 125/33 (63) 99 156/61 (92) 12/07/18 21:00 109 23 121/56 (77) 96 171/66 (101) 12/07/18 20:54 110 24 50 12/07/18 20:31 205/181 12/07/18 20:00 Mechanical Ventilator 12/07/18 20:00 98.5 106 20 184/56 (98) 100 205/181 (189) Intake and Output 12/07/18 12/08/18 19:00 07:00 Intake Total 225 ml 1556.307 ml Output Total 220 ml 800 ml Balance 5 ml 756.307 ml IV Total 225 ml 1556.307 ml Output Urine Total 220 ml 800 ml # Bowel Movements 2 Laboratory Tests Test 12/07/18 20:40 12/08/18 04:30 12/08/18 05:50 12/08/18 09:56 Lactic Acid Level 9.20 mmol/L (0.66-2.22) H 6.60 mmol/L (0.4-2.0) H 4.40 mmol/L (0.66-2.22) H White Blood Count 16.2 K/UL (4.8-10.8) H Red Blood Count 3.48 M/UL (4.70-6.10) L Hemoglobin 10.7 G/DL (14.2-18.0) L Hematocrit 32.5 % (42.0-52.0) L Mean Corpuscular Volume 93 FL (80-99) Mean Corpuscular Hemoglobin 30.6 PG (27.0-31.0) Mean Corpuscular Hemoglobin Concent 32.8 G/DL (32.0-36.0) Red Cell Distribution Width 12.7 % (11.6-14.8) Platelet Count 246 K/UL (150-450) Mean Platelet Volume 6.8 FL (6.5-10.1) Neutrophils (%) (Auto) % (45.0-75.0) Lymphocytes (%) (Auto) % (20.0-45.0) Monocytes (%) (Auto) % (1.0-10.0) Eosinophils (%) (Auto) % (0.0-3.0) Basophils (%) (Auto) % (0.0-2.0) Differential Total Cells Counted 100 Neutrophils % (Manual) 80 % (45-75) H Lymphocytes % (Manual) 5 % (20-45) L Monocytes % (Manual) 3 % (1-10) Eosinophils % (Manual) 0 % (0-3) Basophils % (Manual) 0 % (0-2) Band Neutrophils 12 % (0-8) H Nucleated Red Blood Cells 1 /100 WBC Platelet Estimate Adequate Platelet Morphology Normal Red Blood Cell Morphology Normal Activated Partial Thromboplast Time > 150 SEC (23-33) *H Sodium Level 135 MMOL/L (136-145) L Potassium Level 5.6 MMOL/L (3.5-5.1) H Chloride Level 100 MMOL/L (98-107) Carbon Dioxide Level 17 MMOL/L (21-32) L Anion Gap 18 mmol/L (5-15) H Blood Urea Nitrogen 41 mg/dL (7-18) H Creatinine 3.9 MG/DL (0.55-1.30) H Estimat Glomerular Filtration Rate mL/min (>60) Glucose Level 446 MG/DL (74-106) H Calcium Level 8.1 MG/DL (8.5-10.1) L Magnesium Level 1.5 MG/DL (1.8-2.4) L Thyroid Stimulating Hormone (TSH) 0.329 uiU/mL (0.358-3.740) Arterial Blood pH 7.355 (7.350-7.450) Arterial Blood Partial Pressure CO2 14.7 mmHg (35.0-45.0) *L Arterial Blood Partial Pressure O2 119.6 mmHg (75.0-100.0) H Arterial Blood HCO3 8.0 mmol/L (22.0-26.0) *L Arterial Blood Oxygen Saturation 97.7 % (95-100) Arterial Blood Base Excess -15.5 (-2-2) *L Pancho Test N/a Test 12/08/18 13:00 12/08/18 14:20 12/08/18 15:54 12/08/18 17:05 Activated Partial Thromboplast Time > 150 SEC (23-33) *H Arterial Blood pH 7.251 (7.350-7.450) 7.317 (7.350-7.450) Arterial Blood Partial Pressure CO2 28.1 mmHg (35.0-45.0) L 27.5 mmHg (35.0-45.0) L Arterial Blood Partial Pressure O2 119.9 mmHg (75.0-100.0) H 109.4 mmHg (75.0-100.0) H Arterial Blood HCO3 12.1 mmol/L (22.0-26.0) *L 13.8 mmol/L (22.0-26.0) *L Arterial Blood Oxygen Saturation 97.6 % (95-100) 97.4 % (95-100) Arterial Blood Base Excess -13.7 (-2-2) *L -11.0 (-2-2) *L Pancho Test Positive Positive Sodium Level 137 MMOL/L (136-145) Potassium Level 6.4 MMOL/L (3.5-5.1) *H Chloride Level 103 MMOL/L (98-107) Carbon Dioxide Level 16 MMOL/L (21-32) L Anion Gap 17 mmol/L (5-15) H Blood Urea Nitrogen 51 mg/dL (7-18) H Creatinine 5.1 MG/DL (0.55-1.30) H Estimat Glomerular Filtration Rate mL/min (>60) Glucose Level 210 MG/DL (74-106) #H Calcium Level 7.7 MG/DL (8.5-10.1) L Microbiology Date/Time Source Procedure Growth Status 12/07/18 22:10 Sputum Induced Gram Stain - Final Resulted 12/07/18 22:10 Sputum Induced Sputum Culture Pending Resulted Height (Feet): 5 Height (Inches): 6.00 Weight (Pounds): 175 Medications Current Medications Medications (Trade) Dose Ordered Sig/Sarai Route PRN Reason Start Time Stop Time Status Last Admin Dose Admin Acetaminophen/ Codeine Phosphate (Tylenol #3) 1 tab Q6H PRN ORAL For Pain 12/07/18 21:30 12/10/18 15:29 12/08/18 08:20 Amlodipine Besylate (Norvasc) 5 mg DAILY ORAL 12/08/18 09:00 01/02/19 08:59 12/08/18 08:19 Artificial Tears (Akwa-Tears) 1 drop BID BOTH EYES 12/07/18 18:00 01/02/19 08:59 12/08/18 18:31 Baclofen (Lioresal) 10 mg THREE TIMES A DAY ORAL 12/07/18 18:00 01/02/19 08:59 12/08/18 18:30 Cefepime HCl 1 gm/ Dextrose 100 ml @ 200 mls/hr Q24HRS IVPB 12/08/18 18:00 12/15/18 17:59 12/08/18 18:00 Dextrose (Dextrose 50%) 25 ml Q30M PRN IV Hypoglycemia 12/07/18 18:00 01/01/19 18:59 Dextrose (Dextrose 50%) 50 ml Q30M PRN IV Hypoglycemia 12/07/18 18:00 01/01/19 18:59 Docusate Sodium (Colace) 100 mg TWICE A DAY ORAL 12/07/18 18:00 01/02/19 08:59 12/08/18 18:30 Donepezil HCl (Aricept) 5 mg BEDTIME ORAL 12/07/18 21:00 01/01/19 20:59 12/07/18 21:48 Escitalopram Oxalate (Lexapro) 10 mg BEDTIME ORAL 12/07/18 21:00 01/01/19 20:59 12/07/18 21:48 Finasteride (Proscar) 5 mg DAILY ORAL 12/08/18 09:00 01/02/19 08:59 12/08/18 08:20 Gabapentin (Neurontin) 100 mg THREE TIMES A DAY ORAL 12/07/18 18:00 01/04/19 12:59 12/08/18 18:30 Guaifenesin (Mucinex ER) 600 mg TWICE A DAY ORAL 12/07/18 18:30 01/05/19 18:29 12/08/18 18:30 Heparin Sodium/ Dextrose 500 ml @ 15.881 mls/ hr ADJUST PER PROTOCOL IV 12/08/18 15:00 01/07/19 14:59 12/08/18 14:59 Hydralazine HCl (Apresoline) 10 mg Q4H PRN IV sbp>160 12/07/18 19:00 01/06/19 18:59 12/08/18 05:21 Hydrocortisone (Hydrocortisone) 1 applic BID TOPIC 12/07/18 18:00 01/02/19 08:59 12/08/18 08:21 Hydromorphone HCl (Dilaudid) 0.5 mg Q4H PRN IVP For Pain 12/07/18 20:30 12/10/18 20:23 12/08/18 13:42 Insulin Aspart (NovoLOG) BEFORE MEALS AND HS SUBQ 12/07/18 21:00 01/01/19 20:59 12/08/18 18:30 Insulin Detemir (Levemir) 10 units Q12HR SUBQ 12/08/18 10:30 01/07/19 10:29 12/08/18 10:59 Lorazepam (Ativan 2mg/ml 1ml) 2 mg Q2HR PRN IVP For Seizures 12/07/18 18:15 12/14/18 18:14 12/07/18 20:01 Losartan Potassium (Cozaar) 50 mg DAILY ORAL 12/08/18 09:00 01/02/19 08:59 12/08/18 08:20 Metronidazole 100 ml @ 100 mls/hr Q8HR IVPB 12/08/18 15:00 12/15/18 14:59 12/08/18 15:47 Norepinephrine Bitartrate 4 mg/ Dextrose 250 ml @ 0 mls/hr Q24H IV 12/08/18 17:45 01/07/19 17:44 Pantoprazole (Protonix) 40 mg DAILY ORAL 12/08/18 09:00 01/01/19 19:14 12/08/18 08:20 Sodium Bicarbonate 50 ml/ Sodium Chloride 1,050 ml @ 100 mls/hr [id number] IV 12/07/18 20:00 12/08/18 19:59 12/08/18 18:31 Sodium Polystyrene Sulfonate (Kayexalate) 15 gm ONCE NG 12/08/18 21:00 12/08/18 22:00 Sodium Bicarbonate (Sodium Bicarbonate) 50 ml ONCE IVP 12/08/18 19:15 12/08/18 20:15 Vancomycin HCl (Vanco rx to dose) 1 ea DAILY PRN MISC Per rx protocol 12/08/18 13:30 01/07/19 13:29 Assessment/Plan Problem List: (1) Hypotension ICD Codes: I95.9 - Hypotension, unspecified SNOMED: 56575807 (2) Sepsis Assessment & Plan: 73M sepsis requiring urgent venous access for meds, pressors , fluids, and monitoring procedure medically necessary and line urgently needed in ICU left subclavian line placed without complication. see note will monitor line and patient will follow with recs ICD Codes: A41.9 - Sepsis, unspecified organism SNOMED: 33453258 (3) Hyperglycemia ICD Codes: R73.9 - Hyperglycemia, unspecified SNOMED: 54178282, 430634395, 553976700 (4) Chronic ulcer of toes ICD Codes: L97.509 - Non-pressure chronic ulcer of other part of unspecified foot with unspecified severity SNOMED: 235651281, 518200278, 659294146 (5) Renal insufficiency ICD Codes: N28.9 - Disorder of kidney and ureter, unspecified SNOMED: 862307588, 341760424, 984626823 (6) Gait abnormality ICD Codes: R26.9 - Unspecified abnormalities of gait and mobility SNOMED: 83216856 (7) HTN (hypertension) ICD Codes: I10 - Essential (primary) hypertension SNOMED: 67857315 Qualifiers: Qualified Codes: I10 - Essential (primary) hypertension (8) Cellulitis and abscess of foot Assessment & Plan: Cont IV Abx Vascular notes with severe peripheral disease appreciate podiatry input cont with dressings and care ICD Codes: L03.119 - Cellulitis of unspecified part of limb; L02.619 - Cutaneous abscess of unspecified foot SNOMED: 174641039, 907246399, 512835966 (9) Seizure ICD Codes: R56.9 - Unspecified convulsions SNOMED: 20895175 (10) Respiratory failure, acute ICD Codes: J96.00 - Acute respiratory failure, unspecified whether with hypoxia or hypercapnia SNOMED: 87946633 Maurice Thomas December 08, 2018 19:48
[2018-12-08] MEDS ORDERED: Sodium Bicarbonate 50 ML in Sodium Chloride 1,000 ML IV ONE (20:00)
--- NOTE | 2018-12-08 20:00 | NUR ---
NURSE NOTES: pt orally intubated -vent o2 sat 100 o/o obtunted no response to pain no movement all extrimities pupil nonreactive no urinary output reposition eeg good
[2018-12-08] MEDS ORDERED: Sodium Polystyrene Sulfonate 15gm Powder NG SCH (21:00)
[2018-12-08] MEDS: Donepezil 5mg Tab ORAL SCH (21:35)
--- NOTE | 2018-12-08 22:00 | NUR ---
NURSE NOTES: ptt result report pharmacy heparin drip off 1hr - restart to 6unit /kg /h
[2018-12-09] VITALS (73 sets, daily range): BP systolic 0–146; BP diastolic 22–57
--- NOTE | 2018-12-09 | NUR ---
NURSE NOTES: nuero status un change
--- NOTE | 2018-12-09 00:04 | Neurology Progress Note ---
Interim History Interim History ROS Limited/Unobtainable: Yes Complaints: AMS Events: Worsening Sepsis, unchanged MS Interim History This visit was performed on December 08, [address] Emily Suero. Critical Care evaluation and management of this critically ill patient was needed due to underlying neurological illness requiring critical care mangement. 32 minutes of time was spent on this today. Review of Systems All Systems: reviewed and negative except above Objective Physical Exam Last Vital Signs Date Time Temp Pulse Resp B/P (MAP) Pulse Ox O2 Delivery O2 Flow Rate FiO2 12/08/18 23:21 108 21 40 12/08/18 18:00 95/48 (64) 100 12/08/18 16:00 98.0 12/08/18 00:00 Mechanical Ventilator 12/07/18 18:13 50.0 Laboratory Tests Test 12/08/18 04:30 12/08/18 05:50 12/08/18 09:56 12/08/18 13:00 White Blood Count 16.2 K/UL (4.8-10.8) H Red Blood Count 3.48 M/UL (4.70-6.10) L Hemoglobin 10.7 G/DL (14.2-18.0) L Hematocrit 32.5 % (42.0-52.0) L Mean Corpuscular Volume 93 FL (80-99) Mean Corpuscular Hemoglobin 30.6 PG (27.0-31.0) Mean Corpuscular Hemoglobin Concent 32.8 G/DL (32.0-36.0) Red Cell Distribution Width 12.7 % (11.6-14.8) Platelet Count 246 K/UL (150-450) Mean Platelet Volume 6.8 FL (6.5-10.1) Neutrophils (%) (Auto) % (45.0-75.0) Lymphocytes (%) (Auto) % (20.0-45.0) Monocytes (%) (Auto) % (1.0-10.0) Eosinophils (%) (Auto) % (0.0-3.0) Basophils (%) (Auto) % (0.0-2.0) Differential Total Cells Counted 100 Neutrophils % (Manual) 80 % (45-75) H Lymphocytes % (Manual) 5 % (20-45) L Monocytes % (Manual) 3 % (1-10) Eosinophils % (Manual) 0 % (0-3) Basophils % (Manual) 0 % (0-2) Band Neutrophils 12 % (0-8) H Nucleated Red Blood Cells 1 /100 WBC Platelet Estimate Adequate Platelet Morphology Normal Red Blood Cell Morphology Normal Activated Partial Thromboplast Time > 150 SEC (23-33) *H > 150 SEC (23-33) *H Sodium Level 135 MMOL/L (136-145) L Potassium Level 5.6 MMOL/L (3.5-5.1) H Chloride Level 100 MMOL/L (98-107) Carbon Dioxide Level 17 MMOL/L (21-32) L Anion Gap 18 mmol/L (5-15) H Blood Urea Nitrogen 41 mg/dL (7-18) H Creatinine 3.9 MG/DL (0.55-1.30) H Estimat Glomerular Filtration Rate mL/min (>60) Glucose Level 446 MG/DL (74-106) H Lactic Acid Level 6.60 mmol/L (0.4-2.0) H 4.40 mmol/L (0.66-2.22) H Calcium Level 8.1 MG/DL (8.5-10.1) L Magnesium Level 1.5 MG/DL (1.8-2.4) L Thyroid Stimulating Hormone (TSH) 0.329 uiU/mL (0.358-3.740) Arterial Blood pH 7.355 (7.350-7.450) Arterial Blood Partial Pressure CO2 14.7 mmHg (35.0-45.0) *L Arterial Blood Partial Pressure O2 119.6 mmHg (75.0-100.0) H Arterial Blood HCO3 8.0 mmol/L (22.0-26.0) *L Arterial Blood Oxygen Saturation 97.7 % (95-100) Arterial Blood Base Excess -15.5 (-2-2) *L Pancho Test N/a Test 12/08/18 14:20 12/08/18 15:54 12/08/18 17:05 12/08/18 20:13 Arterial Blood pH 7.251 (7.350-7.450) 7.317 (7.350-7.450) Arterial Blood Partial Pressure CO2 28.1 mmHg (35.0-45.0) L 27.5 mmHg (35.0-45.0) L Arterial Blood Partial Pressure O2 119.9 mmHg (75.0-100.0) H 109.4 mmHg (75.0-100.0) H Arterial Blood HCO3 12.1 mmol/L (22.0-26.0) *L 13.8 mmol/L (22.0-26.0) *L Arterial Blood Oxygen Saturation 97.6 % (95-100) 97.4 % (95-100) Arterial Blood Base Excess -13.7 (-2-2) *L -11.0 (-2-2) *L Pancho Test Positive Positive Sodium Level 137 MMOL/L (136-145) Potassium Level 6.4 MMOL/L (3.5-5.1) *H Chloride Level 103 MMOL/L (98-107) Carbon Dioxide Level 16 MMOL/L (21-32) L Anion Gap 17 mmol/L (5-15) H Blood Urea Nitrogen 51 mg/dL (7-18) H Creatinine 5.1 MG/DL (0.55-1.30) H Estimat Glomerular Filtration Rate mL/min (>60) Glucose Level 210 MG/DL (74-106) #H Calcium Level 7.7 MG/DL (8.5-10.1) L Activated Partial Thromboplast Time > 150 SEC (23-33) *H General: well developed, well nourished Head: normocophalic Neck: no rigidity EENT: other - ETT on Ventilator, no sedation/ paralysis Neurologic Exam Cranial Nerves III, IV, : other - Pupils Objective Intubated without sedation currently. Sluggish pupils bilaterally No motor responses to extremities bilaterally Impression/Recommendations Problems: (1) Respiratory failure, acute (2) Sepsis (3) Peripheral artery occlusion (4) Acute encephalopathy Assessment & Plan: Poor neurological exam, currently intubated with no motor responses. Pupils sluggish bilaterally EEG routine ordered MRI Brain w/o contrast Q2 Neuro Obs Na 135-145 Maintain Normoglycemia with ISS Maintain normothermia (5) Cellulitis and abscess of foot Status: stable Recommendations Recommend EEG MRI Brain when able Q2 Neuro Obs SBP<140 Recommend ASA + other AC Maintain Normoglycemia with ISS Treat osteomyelitis as per ID/Podiatry Maintain normothermia Dora Bates N.P. December 09, 2018 00:04
--- NOTE | 2018-12-09 02:40 | Neurology Progress Note ---
Interim History Interim History ROS Limited/Unobtainable: Yes Complaints: AMS Events: Worsening Sepsis, unchanged MS Interim History This visit was conducted on December 09, [address] Paxton Suero. No changes- poor exam persisting. Review of Systems All Systems: reviewed and negative except above Objective Physical Exam Last Vital Signs Date Time Temp Pulse Resp B/P (MAP) Pulse Ox O2 Delivery O2 Flow Rate FiO2 12/09/18 01:19 106 20 40 12/09/18 01:00 95/46 (62) 100 12/09/18 00:00 99.0 12/08/18 00:00 Mechanical Ventilator 12/07/18 18:13 50.0 Laboratory Tests Test 12/08/18 04:30 12/08/18 05:50 12/08/18 09:56 12/08/18 13:00 White Blood Count 16.2 K/UL (4.8-10.8) H Red Blood Count 3.48 M/UL (4.70-6.10) L Hemoglobin 10.7 G/DL (14.2-18.0) L Hematocrit 32.5 % (42.0-52.0) L Mean Corpuscular Volume 93 FL (80-99) Mean Corpuscular Hemoglobin 30.6 PG (27.0-31.0) Mean Corpuscular Hemoglobin Concent 32.8 G/DL (32.0-36.0) Red Cell Distribution Width 12.7 % (11.6-14.8) Platelet Count 246 K/UL (150-450) Mean Platelet Volume 6.8 FL (6.5-10.1) Neutrophils (%) (Auto) % (45.0-75.0) Lymphocytes (%) (Auto) % (20.0-45.0) Monocytes (%) (Auto) % (1.0-10.0) Eosinophils (%) (Auto) % (0.0-3.0) Basophils (%) (Auto) % (0.0-2.0) Differential Total Cells Counted 100 Neutrophils % (Manual) 80 % (45-75) H Lymphocytes % (Manual) 5 % (20-45) L Monocytes % (Manual) 3 % (1-10) Eosinophils % (Manual) 0 % (0-3) Basophils % (Manual) 0 % (0-2) Band Neutrophils 12 % (0-8) H Nucleated Red Blood Cells 1 /100 WBC Platelet Estimate Adequate Platelet Morphology Normal Red Blood Cell Morphology Normal Activated Partial Thromboplast Time > 150 SEC (23-33) *H > 150 SEC (23-33) *H Sodium Level 135 MMOL/L (136-145) L Potassium Level 5.6 MMOL/L (3.5-5.1) H Chloride Level 100 MMOL/L (98-107) Carbon Dioxide Level 17 MMOL/L (21-32) L Anion Gap 18 mmol/L (5-15) H Blood Urea Nitrogen 41 mg/dL (7-18) H Creatinine 3.9 MG/DL (0.55-1.30) H Estimat Glomerular Filtration Rate mL/min (>60) Glucose Level 446 MG/DL (74-106) H Lactic Acid Level 6.60 mmol/L (0.4-2.0) H 4.40 mmol/L (0.66-2.22) H Calcium Level 8.1 MG/DL (8.5-10.1) L Magnesium Level 1.5 MG/DL (1.8-2.4) L Thyroid Stimulating Hormone (TSH) 0.329 uiU/mL (0.358-3.740) Arterial Blood pH 7.355 (7.350-7.450) Arterial Blood Partial Pressure CO2 14.7 mmHg (35.0-45.0) *L Arterial Blood Partial Pressure O2 119.6 mmHg (75.0-100.0) H Arterial Blood HCO3 8.0 mmol/L (22.0-26.0) *L Arterial Blood Oxygen Saturation 97.7 % (95-100) Arterial Blood Base Excess -15.5 (-2-2) *L Pancho Test N/a Test 12/08/18 14:20 12/08/18 15:54 12/08/18 17:05 12/08/18 20:13 Arterial Blood pH 7.251 (7.350-7.450) 7.317 (7.350-7.450) Arterial Blood Partial Pressure CO2 28.1 mmHg (35.0-45.0) L 27.5 mmHg (35.0-45.0) L Arterial Blood Partial Pressure O2 119.9 mmHg (75.0-100.0) H 109.4 mmHg (75.0-100.0) H Arterial Blood HCO3 12.1 mmol/L (22.0-26.0) *L 13.8 mmol/L (22.0-26.0) *L Arterial Blood Oxygen Saturation 97.6 % (95-100) 97.4 % (95-100) Arterial Blood Base Excess -13.7 (-2-2) *L -11.0 (-2-2) *L Pancho Test Positive Positive Sodium Level 137 MMOL/L (136-145) Potassium Level 6.4 MMOL/L (3.5-5.1) *H Chloride Level 103 MMOL/L (98-107) Carbon Dioxide Level 16 MMOL/L (21-32) L Anion Gap 17 mmol/L (5-15) H Blood Urea Nitrogen 51 mg/dL (7-18) H Creatinine 5.1 MG/DL (0.55-1.30) H Estimat Glomerular Filtration Rate mL/min (>60) Glucose Level 210 MG/DL (74-106) #H Calcium Level 7.7 MG/DL (8.5-10.1) L Activated Partial Thromboplast Time > 150 SEC (23-33) *H General: well developed, well nourished Head: normocophalic Neck: no rigidity EENT: other - ETT on Ventilator, no sedation/ paralysis Neurologic Exam Cranial Nerves III, IV, : other - Pupils Objective Intubated without sedation currently. Sluggish pupils bilaterally No motor responses to extremities bilaterally Impression/Recommendations Problems: (1) Respiratory failure, acute (2) Sepsis (3) Peripheral artery occlusion (4) Acute encephalopathy Assessment & Plan: Poor neurological exam, currently intubated with no motor responses. Pupils sluggish bilaterally EEG routine ordered MRI Brain w/o contrast Q2 Neuro Obs Na 135-145 Maintain Normoglycemia with ISS Maintain normothermia (5) Cellulitis and abscess of foot Status: stable Recommendations Recommend EEG MRI Brain when able Q2 Neuro Obs SBP<140 Recommend ASA + other AC Maintain Normoglycemia with ISS Treat osteomyelitis as per ID/Podiatry Maintain normothermia No new recommendations- exam is very poor- recommend EEG Dora Bates N.P. December 09, 2018 02:40
--- NOTE | 2018-12-09 04:25 | NUR ---
CODE BLUE: See Code sheet which remains on paper.
--- NOTE | 2018-12-09 04:27 | NUR ---
CODE BLUE: See Code sheet which remains on paper.pls see resuscitation record
--- NOTE | 2018-12-09 04:50 | NUR ---
NURSE NOTES: dr. virgen called to notify him of the code blue, family listed as edith saba also called but no answer
[2018-12-09 04:55] LABS: HEMATOCRIT 28.3 % (42.0-52.0); HEMOGLOBIN 9.7 G/DL (14.2-18.0); MEAN CORPUSCULAR VOLUME 89 FL (80-99); PLATELET COUNT 212 K/UL (150-450); RED BLOOD COUNT 3.17 M/UL (4.70-6.10); RED CELL DISTRIBUTION WIDTH 12.4 % (11.6-14.8); WHITE BLOOD COUNT 21.1 K/UL (4.8-10.8)
--- NOTE | 2018-12-09 05:08 | Emergency Room Report ---
History of Present Illness General Chief Complaint: Skin Rash/Abscess Source: Medical Record Present Illness Allergies: Coded Allergies: ACETAMINOPHEN (Verified Allergy, Unknown, 12/02/18) PENICILLINS (Unverified Allergy, Unknown, 12/04/18) Pork (Verified Allergy, Unknown, 12/02/18) Uncoded Allergies: PENICILLIN (Allergy, Unknown, 12/02/18) Nursing Documentation-H Past Medical History: No History, Except For Hx Cardiac Problems: Yes Hx Hypertension: Yes Hx Diabetes: Yes - Type 1 Diabetes Hx Cancer: No Hx Gastrointestinal Problems: No Hx Dialysis: Yes - CKD, AKF, BPH History Of Psychiatric Problem: Yes - Major depression Hx Neurological Problems: Yes - Dementia Physical Exam Vital Signs Date Time Temp Pulse Resp B/P (MAP) Pulse Ox O2 Delivery O2 Flow Rate FiO2 12/05/18 08:00 98.5 86 19 155/78 (103) 95 12/05/18 09:00 Room Air 12/07/18 18:10 100 12/07/18 18:13 50.0 Procedures CPR/Code Blue CPR/Code Blue Narrative Patient is 73-year-old male status post cardiac arrest. I was contacted after patient had CODE BLUE in which he had asystolic arrest. Patient was noted to have been given 1 epinephrine prior to my arrival. He was noted to have prior history of renal failure with high potassium. Patient was given medications as per code sheet and was given treatment for hyperkalemia with bicarb and calcium. Patient was noted to have Rosc. patient was subsequently noted to have recurrence of arrest and had episode of ventricular fibrillation he was defibrillated x1. Patient again had return of spontaneous circulation. See code sheet. Patient was noted to have been restarted on Levophed drip. Medical Decision Making Diagnostic Impression: Primary Impression: Cellulitis and abscess of foot Additional Impressions: Chronic ulcer of toes Hyperglycemia Renal insufficiency Last Vital Signs Date Time Temp Pulse Resp B/P (MAP) Pulse Ox O2 Delivery O2 Flow Rate FiO2 12/09/18 03:18 103 21 40 12/09/18 03:00 92/49 (63) 100 12/09/18 00:00 99.0 12/08/18 00:00 Mechanical Ventilator 12/07/18 18:13 50.0 Disposition: ADMITTED INPATIENT Condition: Serious Referrals: Fred Kearney M.D. (PCP) Roby Garg MD December 09, 2018 05:08
--- NOTE | 2018-12-09 05:30 | NUR ---
NURSE NOTES: dr virgen called again, did not answer on the first call
[2018-12-09 05:31] LABS: ALANINE AMINOTRANSFERASE 71 U/L (12-78); ALBUMIN/GLOBULIN RATIO 0.5 (1.0-2.7); ALKALINE PHOSPHATASE 74 U/L (46-116); ANION GAP 20 mmol/L (5-15); ASPARTATE AMINO TRANSFERASE 612 U/L (15-37); BILIRUBIN,TOTAL 0.5 MG/DL (0.2-1.0); BLOOD UREA NITROGEN 57 mg/dL (7-18); CALCIUM 7.2 MG/DL (8.5-10.1); CARBON DIOXIDE 14 MMOL/L (21-32); CHLORIDE 103 MMOL/L (98-107); CREATININE 6.1 MG/DL (0.55-1.30); SODIUM 137 MMOL/L (136-145)
[2018-12-09 05:34] LABS: POTASSIUM 7.4 MMOL/L (3.5-5.1)
--- NOTE | 2018-12-09 05:38 | NUR ---
RESPIRATORY NOTE: Jose JOYNER called for this already intubated pt at 0427. Per bedside RN, pt's heart rhythm went asystole. High quality CPR started right away, meds given. MD Forest facilitated the code. Pt successfully resuscitated after a few rounds of CPR & meds. Pt placed back on previous vent settings of AC 18, 550VT, 100%, PEEP +5. post-code ABG drawn via A-line (see lab for results). Pt stable at this time, will continue to monitor pt.
[2018-12-09] MEDS ORDERED: Heparin 25,000u/D5W 500ml 500 ML IV SCH ×4 (06:00→23:15)
--- NOTE | 2018-12-09 06:00 | NUR ---
NURSE NOTES: called for the third time
[2018-12-09] MEDS: NovoLOG Insulin Flexpen SUBQ SCH ×4 (06:07→21:04)
--- NOTE | 2018-12-09 06:30 | NUR ---
NURSE NOTES: dr. virgen finally called in, notified of the code blue, potassium of 7.4 and abg results post code, with orders noted
[2018-12-09] MEDS ORDERED: Sodium Bicarbonate 50ml Carp IV SCH (06:45)
[2018-12-09] MEDS ORDERED: Sodium Polystyrene Sulfon/Sorb 15gm/60ml Susp ORAL SCH (06:45)
[2018-12-09] MEDS ORDERED: Insulin Human Regular 100units/ml 3ml IV SCH (06:45)
[2018-12-09] MEDS ORDERED: Sodium Bicarbonate 50ml Carp ONE (06:48)
--- NOTE | 2018-12-09 07:19 | NUR ---
RESPIRATORY NOTE: Received pt on vent settings AC 18, 550 Vt, 100% FiO2, PEEP 5. Orally intubated with 8.0 ETT at 20cm at the lips line. tachycardia HR 106bpm, saturates at 90%. Bilateral clear diminished breath sounds, suctioned scant to minimal amount of thick/thin clear/ white/ruelas secretions without incidents. Alarms are set and audible,Vent is plugged into red outlet, vent circuits are secured and out of the way, ambubag present at bedside. No respiratory distress noted. Will continue to monitor pt closely.
--- NOTE | 2018-12-09 07:50 | NUR ---
NURSE NOTES: Received pt from TAMMY Nguyen. S/p code blue this morning. Patient is obtunded, opens eyes slightly. Patient is orally intubated ETT size 8.0, 20cm at lip line, vent settings: AC 18, TV550, Fio2 100%, PEEP 5, O2 sat 96%. Arterial line on left brachial, intact. Right forearm 20G x2 IV sites and left subclavian TLC intact and patent, running heparin drip at 3units/kg/hr, levophed at 30mcg/min. No active bleeding noted. OGT intact, pt kept NPO. Ng cath intact, no urine output noted. Bed in lowest position, side rails upx3, locked. Bed alarm on.
--- NOTE | 2018-12-09 08:00 | NUR ---
NURSE NOTES: Right IJ hemodialysis cath inserted by Dr. Hernandez at bedside. heparin and lidocaine administered by . Dressing intact, clean and dry. Addendum: 12/09/18 at 1714 by LELA WILLIS RN A-line still in placed, not removed by Dr. Hernandez.
[2018-12-09] MEDS ORDERED: Lidocaine 1% 10mg/ml/Epi 0.005mg/ml 30ml vial INJ SCH (08:15)
[2018-12-09] MEDS ORDERED: Heparin 5000 units/ml inj SUBQ SCH (08:15)
--- NOTE | 2018-12-09 08:21 | NUR ---
12/09/18 RIVKA PÉREZ, RECENT CODE AR PER JAMEY JONES TJVivien 08:21 Addendum: 12/09/18 at 0822 by CARINA WHITTAKER CONCERNING MRI EXAM...
--- NOTE | 2018-12-09 08:30 | NUR ---
HAND-OFF: Report given to josé sommers using sbar.
[2018-12-09] MEDS: Losartan 50mg tab ORAL SCH (08:33)
[2018-12-09] MEDS: Artificial Tears 1.4% Op Soln BOTH EYES SCH ×2 (08:50→17:50)
[2018-12-09] MEDS: guaiFENesin ER 600mg tab ORAL SCH ×2 (08:51→17:51)
--- NOTE | 2018-12-09 09:00 | Diagnostic Imaging Report ---
Indication: Central line placement Comparison: 12/08/2018 A single view chest radiograph was obtained. Findings: There is a right-sided jugular catheter placement noted. The tip is projected over the SVC in good position. There is no pneumothorax. No significant change otherwise. Interstitial edema suspected. Mild cardiomegaly noted. Other tubes and lines stable. IMPRESSION: Right jugular temporary dialysis catheter noted in good position. No pneumothorax identified
[2018-12-09] MEDS: Docusate 100mg/10ml Liq NG SCH ×2 (09:17→17:50)
[2018-12-09] MEDS: Levemir Flexpen SUBQ SCH ×2 (09:21→21:02)
--- NOTE | 2018-12-09 09:26 | NUR ---
NURSE NOTES: Dr. Baron at bedside to assess the patient, MD made aware of ABG results. repeat ABG at 1200 ordered.
--- NOTE | 2018-12-09 09:35 | NUR ---
RADIOLOGY DEPT., CHEST X-RAY FOR CENTRAL LINE PLMT COMPLETED.-P.DYE
[2018-12-09] MEDS: Hydrocortisone 2.5% Oint 30gm TOPIC SCH ×2 (10:05→17:51)
--- NOTE | 2018-12-09 10:14 | Diagnostic Imaging Report ---
Indication:Elevated Bun and Creatinine. Technique: Grayscale and duplex Doppler imaging of the kidneys performed. Comparison: None Findings: The size, contour, and echogenicity of both kidneys are within normal limits. Right kidney 9 cm. Left kidney 9.3 cm. There is no hydronephrosis. The IVC and urinary bladder are unremarkable. Ng catheter noted. IMPRESSION: Negative exam
--- NOTE | 2018-12-09 11:00 | NUR ---
NURSE NOTES: Hemodialysis ongoing, HD nurse at bedside.
--- NOTE | 2018-12-09 11:01 | Diagnostic Imaging Report ---
Indication: Dyspnea Comparison: 12/07/2018 A single view chest radiograph was obtained. Findings: Interstitial densities demonstrated throughout the lungs bilaterally. Left subclavian line is noted with the tip projected over the SVC/right atrial junction. Endotracheal tube is stable. NG tube stable and satisfactory. Heart size is enlarged. IMPRESSION: Development of interstitial edema/CHF
--- NOTE | 2018-12-09 11:55 | NUR ---
Social Service Note STACY spoke with Nicolasa at [facility] [phone] who completed the POLST with patient. [facility] SW stated pt wanted an attempt at CPR however signed comfort measures and no artificial means of nutrition. Patient was also clear he didn't want tubes to prolong his life. STACY informed Dr. Kearney and consultants. Aware of bioethics consult. Will monitor and discuss further with MD's.
--- NOTE | 2018-12-09 12:13 | NUR ---
NURSE NOTES: ABG will be drawn after HD. HD ongoing.
--- NOTE | 2018-12-09 12:30 | Critical Care Progress Note ---
Assessment/Plan Assessment/Plan 1. right foot and multiple toe cellulitis, infected wounds, rule out osteo. 2. Diabetes mellitus. 3. Hypertension. 4. Respiratory failure, acute 5. Chronic renal failure. 6. Diabetes 7. Anemia. 8. Hypertension 9. s/p code blue 10. protein calorie malnutrition 11. acute on chronic encephalopathy 12. anoxic brain injury 13. metabolic acidosis, severe with acidemia PLAN care noted IV antibiotics per ID respiratory care- hypervent - breathing at 32- recheck ABG after bicarb Ventilatory support prognosis very poor supportive care suction DVT prophylaxis oxygen therapy agree with comfort care medications/laboratory data/nursing notes/ICU care reviewed in detail note reviewed and edited care discussed with RN and RT ICU time spent 45 minutes Critical Care - Subjective Interval Events: s/p code blue doing poorly significantly acidotic ROS Limited/Unobtainable: Yes Condition: critical EKG Rhythm: Sinus Rhythm I&O: Intake and Output 12/08/18 12/09/18 18:59 06:59 Intake Total 1026.375 ml 947.5 ml Output Total 190 ml 0 ml Balance 836.375 ml 947.5 ml IV Total 1026.375 ml 947.5 ml Output Urine Total 190 ml 0 ml Critical Care - Objective ET-Tube: 8.0 ET Position: 20 Last 24 Hour Vital Signs Date Time Temp Pulse Resp B/P (MAP) Pulse Ox O2 Delivery O2 Flow Rate FiO2 12/09/18 12:00 99.0 100 25 96/45 (62) 100 12/09/18 12:00 96/45 12/09/18 11:50 86/45 12/09/18 11:49 88/43 12/09/18 11:45 100 28 88/43 (58) 100 12/09/18 11:45 88/43 12/09/18 11:32 Mechanical Ventilator 12/09/18 11:30 115 28 93/44 (60) 98 12/09/18 11:30 93/44 12/09/18 11:15 115 28 88/44 (59) 98 12/09/18 11:15 88/44 12/09/18 11:00 114 28 101/38 (59) 96 12/09/18 11:00 101/38 12/09/18 10:45 99 28 99/38 (58) 96 12/09/18 10:45 99 30 90/34 (52) 97 12/09/18 10:45 99/38 5 10:31 116 25 100 5 10:30 91/37 5 10:30 101 30 91/37 (55) 97 12/09/18 10:15 100 28 89/35 (53) 97 12/09/18 10:15 89/35 5 10:00 100/35 5 10:00 81 28 100/35 (56) 97 12/09/18 09:45 94/43 12/09/18 09:45 118 31 94/43 (60) 100 12/09/18 09:30 93/39 12/09/18 09:30 119 31 93/39 (57) 99 12/09/18 09:27 121 32 100 12/09/18 09:15 120 32 95/40 (58) 99 12/09/18 09:15 95/40 12/09/18 09:00 120 32 105/50 (68) 98 12/09/18 09:00 105/50 12/09/18 08:49 94/27 12/09/18 08:45 60 33 116/43 (67) 95 12/09/18 08:45 94/27 12/09/18 08:33 91/25 12/09/18 08:33 70 91/25 12/09/18 08:30 69 31 93/25 (47) 100 12/09/18 08:30 93/25 12/09/18 08:15 97/26 12/09/18 08:15 75 29 97/26 (49) 94 12/09/18 08:00 100/38 12/09/18 08:00 98.9 112 31 100/38 (58) 95 12/09/18 07:45 121 32 97/40 (59) 95 12/09/18 07:45 97/40 12/09/18 07:30 91/33 12/09/18 07:30 111 40 91/33 (52) 95 12/09/18 07:19 106 28 100 12/09/18 07:15 105 47 85/29 (47) 94 12/09/18 07:15 85/29 12/09/18 07:00 78/32 12/09/18 07:00 112 31 94/39 (57) 95 12/09/18 06:15 112 31 94/39 (57) 84 12/09/18 06:12 76/45 12/09/18 06:00 117 29 89/39 (56) 77 12/09/18 05:45 124 25 95/40 (58) 89 12/09/18 05:30 125 98/30 (52) 85 12/09/18 05:15 113 90/40 (57) 84 12/09/18 05:14 115 27 100 12/09/18 05:00 94 26 89/33 (51) 84 12/09/18 04:45 0 28 0/ 12/09/18 04:30 0 0/ 1 12/09/18 04:15 107 28 0/ 100 12/09/18 04:00 98.0 106 23 97/50 (66) 100 12/09/18 03:18 103 21 40 12/09/18 03:00 105 23 92/49 (63) 100 12/09/18 02:00 107 23 91/44 (60) 100 12/09/18 01:19 106 20 40 12/09/18 01:00 108 20 95/46 (62) 100 12/09/18 00:00 99.0 107 20 93/45 (61) 100 12/08/18 23:21 108 21 40 12/08/18 23:00 109 20 93/42 (59) 100 12/08/18 22:00 110 22 92/43 (59) 100 12/08/18 21:20 112 20 40 12/08/18 21:00 114 22 90/44 (59) 98 12/08/18 20:00 98.6 120 24 104/46 (65) 98 12/08/18 19:27 121 29 40 12/08/18 18:00 117 18 95/48 (64) 100 12/08/18 17:14 105 18 40 12/08/18 17:00 107 18 105/44 (64) 100 12/08/18 16:00 98.0 103 18 116/48 (70) 100 12/08/18 15:53 86 16 98 12/08/18 15:29 104 18 40 12/08/18 15:00 102 18 130/55 (80) 100 12/08/18 14:12 97.6 12/08/18 14:00 99 17 115/45 (68) 100 12/08/18 13:00 102 21 141/53 (82) 100 12/08/18 12:42 101 28 40 Labs: Labs Test 12/07/18 06:05 12/07/18 14:35 12/07/18 16:26 12/07/18 16:35 White Blood Count 8.6 K/UL (4.8-10.8) 13.0 K/UL (4.8-10.8) Red Blood Count 3.64 M/UL (4.70-6.10) 3.16 M/UL (4.70-6.10) Hemoglobin 11.1 G/DL (14.2-18.0) 9.7 G/DL (14.2-18.0) Hematocrit 33.0 % (42.0-52.0) 27.6 % (42.0-52.0) Mean Corpuscular Volume 91 FL (80-99) 87 FL (80-99) Mean Corpuscular Hemoglobin 30.4 PG (27.0-31.0) 30.6 PG (27.0-31.0) Mean Corpuscular Hemoglobin Concent 33.4 G/DL (32.0-36.0) 35.1 G/DL (32.0-36.0) Red Cell Distribution Width 12.1 % (11.6-14.8) 11.5 % (11.6-14.8) Platelet Count 264 K/UL (150-450) 223 K/UL (150-450) Mean Platelet Volume 7.1 FL (6.5-10.1) 6.3 FL (6.5-10.1) Neutrophils (%) (Auto) 63.1 % (45.0-75.0) 78.5 % (45.0-75.0) Lymphocytes (%) (Auto) 25.8 % (20.0-45.0) 15.0 % (20.0-45.0) Monocytes (%) (Auto) 7.0 % (1.0-10.0) 5.4 % (1.0-10.0) Eosinophils (%) (Auto) 3.1 % (0.0-3.0) 0.7 % (0.0-3.0) Basophils (%) (Auto) 1.0 % (0.0-2.0) 0.5 % (0.0-2.0) Sodium Level 138 MMOL/L (136-145) 136 MMOL/L (136-145) Potassium Level 4.3 MMOL/L (3.5-5.1) 4.6 MMOL/L (3.5-5.1) Chloride Level 104 MMOL/L (98-107) 101 MMOL/L (98-107) Carbon Dioxide Level 27 MMOL/L (21-32) 23 MMOL/L (21-32) Anion Gap 7 mmol/L (5-15) 12 mmol/L (5-15) Blood Urea Nitrogen 30 mg/dL (7-18) 32 mg/dL (7-18) Creatinine 1.7 MG/DL (0.55-1.30) 2.0 MG/DL (0.55-1.30) Estimat Glomerular Filtration Rate mL/min (>60) mL/min (>60) Glucose Level 213 MG/DL (74-106) 295 MG/DL (74-106) Calcium Level 8.7 MG/DL (8.5-10.1) 8.2 MG/DL (8.5-10.1) Arterial Blood pH 7.384 (7.350-7.450) Arterial Blood Partial Pressure CO2 31.0 mmHg (35.0-45.0) Arterial Blood Partial Pressure O2 235.3 mmHg (75.0-100.0) Arterial Blood HCO3 18.1 mmol/L (22.0-26.0) Arterial Blood Oxygen Saturation 98.7 % (95-100) Arterial Blood Base Excess -6.0 (-2-2) Pancho Test N/a Activated Partial Thromboplast Time > 150 SEC (23-33) Lactic Acid Level 3.60 mmol/L (0.4-2.0) Total Bilirubin 0.3 MG/DL (0.2-1.0) Aspartate Amino Transf (AST/SGOT) 18 U/L (15-37) Alanine Aminotransferase (ALT/SGPT) 17 U/L (12-78) Alkaline Phosphatase 75 U/L (46-116) Troponin I 0.035 ng/mL (0.000-0.056) Total Protein 6.2 G/DL (6.4-8.2) Albumin 2.6 G/DL (3.4-5.0) Globulin 3.6 g/dL Albumin/Globulin Ratio 0.7 (1.0-2.7) Amylase Level 80 U/L (25-115) Test 12/07/18 18:32 12/07/18 18:40 12/07/18 20:40 12/08/18 04:30 Arterial Blood pH 7.265 (7.350-7.450) Arterial Blood Partial Pressure CO2 32.2 mmHg (35.0-45.0) Arterial Blood Partial Pressure O2 > 494.5 mmHg (75.0-100.0) Arterial Blood HCO3 14.3 mmol/L (22.0-26.0) Arterial Blood Oxygen Saturation 99.4 % (95-100) Arterial Blood Base Excess -11.5 (-2-2) Pancho Test Positive White Blood Count 15.3 K/UL (4.8-10.8) 16.2 K/UL (4.8-10.8) Red Blood Count 3.73 M/UL (4.70-6.10) 3.48 M/UL (4.70-6.10) Hemoglobin 11.2 G/DL (14.2-18.0) 10.7 G/DL (14.2-18.0) Hematocrit 33.8 % (42.0-52.0) 32.5 % (42.0-52.0) Mean Corpuscular Volume 91 FL (80-99) 93 FL (80-99) Mean Corpuscular Hemoglobin 30.1 PG (27.0-31.0) 30.6 PG (27.0-31.0) Mean Corpuscular Hemoglobin Concent 33.1 G/DL (32.0-36.0) 32.8 G/DL (32.0-36.0) Red Cell Distribution Width 11.9 % (11.6-14.8) 12.7 % (11.6-14.8) Platelet Count 259 K/UL (150-450) 246 K/UL (150-450) Mean Platelet Volume 5.8 FL (6.5-10.1) 6.8 FL (6.5-10.1) Neutrophils (%) (Auto) 83.4 % (45.0-75.0) % (45.0-75.0) Lymphocytes (%) (Auto) 10.9 % (20.0-45.0) % (20.0-45.0) Monocytes (%) (Auto) 5.0 % (1.0-10.0) % (1.0-10.0) Eosinophils (%) (Auto) 0.2 % (0.0-3.0) % (0.0-3.0) Basophils (%) (Auto) 0.5 % (0.0-2.0) % (0.0-2.0) Sodium Level 135 MMOL/L (136-145) 135 MMOL/L (136-145) Potassium Level 5.1 MMOL/L (3.5-5.1) 5.6 MMOL/L (3.5-5.1) Chloride Level 100 MMOL/L (98-107) 100 MMOL/L (98-107) Carbon Dioxide Level 15 MMOL/L (21-32) 17 MMOL/L (21-32) Anion Gap 20 mmol/L (5-15) 18 mmol/L (5-15) Blood Urea Nitrogen 34 mg/dL (7-18) 41 mg/dL (7-18) Creatinine 2.6 MG/DL (0.55-1.30) 3.9 MG/DL (0.55-1.30) Estimat Glomerular Filtration Rate mL/min (>60) mL/min (>60) Glucose Level 359 MG/DL (74-106) 446 MG/DL (74-106) Calcium Level 8.7 MG/DL (8.5-10.1) 8.1 MG/DL (8.5-10.1) Magnesium Level 1.1 MG/DL (1.8-2.4) 1.5 MG/DL (1.8-2.4) Total Bilirubin 0.5 MG/DL (0.2-1.0) Aspartate Amino Transf (AST/SGOT) 62 U/L (15-37) Alanine Aminotransferase (ALT/SGPT) 23 U/L (12-78) Alkaline Phosphatase 90 U/L (46-116) Troponin I 0.036 ng/mL (0.000-0.056) Total Protein 7.2 G/DL (6.4-8.2) Albumin 3.1 G/DL (3.4-5.0) Globulin 4.1 g/dL Albumin/Globulin Ratio 0.8 (1.0-2.7) Amylase Level 183 U/L (25-115) Lipase 118 U/L (73-393) Vancomycin Level Trough 18.0 ug/mL (5.0-12.0) Lactic Acid Level 9.20 mmol/L (0.66-2.22) 6.60 mmol/L (0.4-2.0) Differential Total Cells Counted 100 Neutrophils % (Manual) 80 % (45-75) Lymphocytes % (Manual) 5 % (20-45) Monocytes % (Manual) 3 % (1-10) Eosinophils % (Manual) 0 % (0-3) Basophils % (Manual) 0 % (0-2) Band Neutrophils 12 % (0-8) Nucleated Red Blood Cells 1 /100 WBC Platelet Estimate Adequate Platelet Morphology Normal Red Blood Cell Morphology Normal Activated Partial Thromboplast Time > 150 SEC (23-33) Thyroid Stimulating Hormone (TSH) 0.329 uiU/mL (0.358-3.740) Test 12/08/18 05:50 12/08/18 09:56 12/08/18 13:00 12/08/18 14:20 Lactic Acid Level 4.40 mmol/L (0.66-2.22) Arterial Blood pH 7.355 (7.350-7.450) 7.251 (7.350-7.450) Arterial Blood Partial Pressure CO2 14.7 mmHg (35.0-45.0) 28.1 mmHg (35.0-45.0) Arterial Blood Partial Pressure O2 119.6 mmHg (75.0-100.0) 119.9 mmHg (75.0-100.0) Arterial Blood HCO3 8.0 mmol/L (22.0-26.0) 12.1 mmol/L (22.0-26.0) Arterial Blood Oxygen Saturation 97.7 % (95-100) 97.6 % (95-100) Arterial Blood Base Excess -15.5 (-2-2) -13.7 (-2-2) Pancho Test N/a Positive Activated Partial Thromboplast Time > 150 SEC (23-33) Test 12/08/18 15:54 12/08/18 17:05 12/08/18 20:13 12/09/18 04:15 Arterial Blood pH 7.317 (7.350-7.450) Arterial Blood Partial Pressure CO2 27.5 mmHg (35.0-45.0) Arterial Blood Partial Pressure O2 109.4 mmHg (75.0-100.0) Arterial Blood HCO3 13.8 mmol/L (22.0-26.0) Arterial Blood Oxygen Saturation 97.4 % (95-100) Arterial Blood Base Excess -11.0 (-2-2) Pancho Test Positive Sodium Level 137 MMOL/L (136-145) 137 MMOL/L (136-145) Potassium Level 6.4 MMOL/L (3.5-5.1) 7.4 MMOL/L (3.5-5.1) Chloride Level 103 MMOL/L (98-107) 103 MMOL/L (98-107) Carbon Dioxide Level 16 MMOL/L (21-32) 14 MMOL/L (21-32) Anion Gap 17 mmol/L (5-15) 20 mmol/L (5-15) Blood Urea Nitrogen 51 mg/dL (7-18) 57 mg/dL (7-18) Creatinine 5.1 MG/DL (0.55-1.30) 6.1 MG/DL (0.55-1.30) Estimat Glomerular Filtration Rate mL/min (>60) mL/min (>60) Glucose Level 210 MG/DL (74-106) 126 MG/DL (74-106) Calcium Level 7.7 MG/DL (8.5-10.1) 7.2 MG/DL (8.5-10.1) Activated Partial Thromboplast Time > 150 SEC (23-33) 116 SEC (23-33) White Blood Count 21.1 K/UL (4.8-10.8) Red Blood Count 3.17 M/UL (4.70-6.10) Hemoglobin 9.7 G/DL (14.2-18.0) Hematocrit 28.3 % (42.0-52.0) Mean Corpuscular Volume 89 FL (80-99) Mean Corpuscular Hemoglobin 30.6 PG (27.0-31.0) Mean Corpuscular Hemoglobin Concent 34.3 G/DL (32.0-36.0) Red Cell Distribution Width 12.4 % (11.6-14.8) Platelet Count 212 K/UL (150-450) Mean Platelet Volume 7.4 FL (6.5-10.1) Neutrophils (%) (Auto) % (45.0-75.0) Lymphocytes (%) (Auto) % (20.0-45.0) Monocytes (%) (Auto) % (1.0-10.0) Eosinophils (%) (Auto) % (0.0-3.0) Basophils (%) (Auto) % (0.0-2.0) Differential Total Cells Counted 100 Neutrophils % (Manual) 66 % (45-75) Lymphocytes % (Manual) 9 % (20-45) Monocytes % (Manual) 7 % (1-10) Eosinophils % (Manual) 0 % (0-3) Basophils % (Manual) 0 % (0-2) Band Neutrophils 18 % (0-8) Platelet Estimate Adequate Platelet Morphology Normal Red Blood Cell Morphology Normal Total Bilirubin 0.5 MG/DL (0.2-1.0) Aspartate Amino Transf (AST/SGOT) 612 U/L (15-37) Alanine Aminotransferase (ALT/SGPT) 71 U/L (12-78) Alkaline Phosphatase 74 U/L (46-116) Total Protein 6.1 G/DL (6.4-8.2) Albumin 2.0 G/DL (3.4-5.0) Globulin 4.1 g/dL Albumin/Globulin Ratio 0.5 (1.0-2.7) Random Vancomycin Level 26.4 ug/mL Test 12/09/18 04:50 12/09/18 12:00 Arterial Blood pH 7.074 (7.350-7.450) Arterial Blood Partial Pressure CO2 22.8 mmHg (35.0-45.0) Arterial Blood Partial Pressure O2 88.9 mmHg (75.0-100.0) Arterial Blood HCO3 6.5 mmol/L (22.0-26.0) Arterial Blood Oxygen Saturation 91.1 % (95-100) Arterial Blood Base Excess -21.9 (-2-2) Pancho Test Positive Objective: chronically ill obtunded intubated ETT in place clear breath sounds bilaterally without rhonchi or wheeze [id number] without MRG reduced bowel sounds nontender no HSM no CC mottling and edema poor LOC skin noted Micro: Microbiology Date/Time Source Procedure Growth Status 12/07/18 21:55 Blood Blood Culture - Preliminary NO GROWTH AFTER 24 HOURS Resulted 12/07/18 21:40 Blood Blood Culture - Preliminary NO GROWTH AFTER 24 HOURS Resulted 12/07/18 22:10 Sputum Induced Gram Stain - Final Resulted 12/07/18 22:10 Sputum Induced Sputum Culture Pending Resulted Accucheck: 167 Sandor Baron MD December 09, 2018 12:30
--- NOTE | 2018-12-09 12:42 | NUR ---
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 99.0 HR 100 RR 28 B/P 88/43 AC 18 TV 550 FIO2 100 PEEP 5 WBC 21.1 BANDS 18 K 7.4 CXR= NO PNEUMOTHORAX IS: LEVOPHED GTT HEPARIN GTT CEFEPIME IV FLAGYL IV ICU STATUS
--- NOTE | 2018-12-09 13:00 | NUR ---
NURSE NOTES: HD done, 500ml out. PTT was drawn during HD. PTT will be repeated.
--- NOTE | 2018-12-09 13:32 | NUR ---
RD ASSESSMENT & RECOMMENDATIONS SEE CARE ACTIVITY FOR COMPLETE ASSESSMENT DAILY ESTIMATED NEEDS: Needs based on DM, OM, renal w/ emergent HD, critical care/ 67kg abw 25-30 kcals/kg [id number] total kcals 80-134 g protein/kg 67-87 g total protein Fluid per MD NUTRITION DIAGNOSIS: * Increased protein intake needs R/T wound healing as evidenced by pt w/ rt foot OM. * Altered nutrition related lab values R/T diabetes, CKD as evidenced by elev BGs and POC glu (177 257 234 269 218), elev creat (1.7). * Swallowing difficulty r/t resp status as evidenced by pt orally intubated, now s/p cardiac arrest, hypotensive w/ pressor support, and emergent HD (Creat 6.1, K 7.4). CURRENT DIET: NPO. ENTERAL NUTRITION RECOMMENDATIONS: NEPRO @40ml/hr x24 hrs to provide 960ml, 1728 kcal, 78g pro, 698ml free H2O - As medically appropriate, rec to obtain GI access, start nepro @20ml/hr for 6 hrs. Advance 10ml/hr as tolerated to goal - Flush per MD, HOB over 30 degrees IF pt remains hypotensive on pressor support, rec trophic feeds of Nepro @5-10ml/hr to maintain gut integrity. ADDITIONAL RECOMMENDATIONS: * Calibrated bedscale wt for accurate CBW * Consider increasing long acting insulin for improved glycemic control * Monitor lytes, replete as needed * Rec MVI x 1, Vit C 500mg QD and Francesco 1pkt BID for wound healing * NOW INTUBATED, ON PRESSORS, TF RECS ABOVE ABLE
--- NOTE | 2018-12-09 13:45 | NUR ---
NURSE NOTES: Informed ABG results to Dr. Baron. change vent setting to [id number]. RT informed
[2018-12-09 14:47] LABS: BASOPHILS % (AUTO) 0.8 % (0.0-2.0); EOSINOPHILS % (AUTO) 0.1 % (0.0-3.0); HEMATOCRIT 28.5 % (42.0-52.0); HEMOGLOBIN 9.5 G/DL (14.2-18.0); LYMPHOCYTES % (AUTO) 14.9 % (20.0-45.0); MEAN CORPUSCULAR VOLUME 90 FL (80-99); MONOCYTES % (AUTO) 3.3 % (1.0-10.0); PLATELET COUNT 174 K/UL (150-450); RED BLOOD COUNT 3.18 M/UL (4.70-6.10); RED CELL DISTRIBUTION WIDTH 12.3 % (11.6-14.8); WHITE BLOOD COUNT 15.1 K/UL (4.8-10.8)
[2018-12-09 15:14] LABS: ANION GAP 25 mmol/L (5-15); BLOOD UREA NITROGEN 43 mg/dL (7-18); CALCIUM 7.2 MG/DL (8.5-10.1); CARBON DIOXIDE 16 MMOL/L (21-32); CHLORIDE 100 MMOL/L (98-107); POTASSIUM 5.8 MMOL/L (3.5-5.1); SODIUM 141 MMOL/L (136-145)
--- NOTE | 2018-12-09 15:20 | NUR ---
NURSE NOTES: PTT came back, 102. spoke with a pharmacist, contacting MD. waiting for pharmacy to call back.
--- NOTE | 2018-12-09 15:25 | NUR ---
NURSE NOTES: Patient desat to 80s. FIO2 increased back to 100% by RT.
--- NOTE | 2018-12-09 15:45 | NUR ---
NURSE NOTES: Heparin gtt rate changed to 1units/kg/hr, will scan label when pt's label is delivered by pharmacy. Addendum: 12/09/18 at 1612 by LELA WILLIS RN No active bleeding noted.
--- NOTE | 2018-12-09 16:11 | NUR ---
NURSE NOTES: Patient was turned and repositioned. Oral care and jackson care provided. Patient kept clean and dry.
--- NOTE | 2018-12-09 16:15 | Surgery Progress Note ---
Surgery Progress Note Subjective Procedure Performed left subclavian central venous catheter insertion Additional Comments had HD line placed. receiving HD. otherwise unchanged. labs noted. exam stable. Objective Last 24 Hour Vital Signs Date Time Temp Pulse Resp B/P (MAP) Pulse Ox O2 Delivery O2 Flow Rate FiO2 12/09/18 16:00 Mechanical Ventilator 12/09/18 16:00 100/44 12/09/18 15:49 98.6 104 25 100/44 (62) 100 12/09/18 15:45 103 22 99/42 (61) 100 12/09/18 15:45 99/42 12/09/18 15:30 102 25 104/46 (65) 98 12/09/18 15:30 104/46 12/09/18 15:16 104 29 100 12/09/18 15:15 104 27 102/46 (64) 95 12/09/18 15:13 101/45 12/09/18 15:12 101/45 12/09/18 15:00 100/45 12/09/18 15:00 103 26 100/45 (63) 96 12/09/18 14:45 104 28 98/44 (62) 93 12/09/18 14:30 104 27 96/43 (60) 95 12/09/18 14:30 96/43 12/09/18 14:15 107 28 95/42 (59) 93 12/09/18 14:15 95/42 12/09/18 14:00 106 27 109/56 (73) 93 12/09/18 14:00 109/56 12/09/18 14:00 80 12/09/18 13:52 109 27 80 12/09/18 13:45 108 28 99/46 (63) 97 12/09/18 13:45 96/46 12/09/18 13:30 108 28 98/45 (62) 98 12/09/18 13:30 98/45 12/09/18 13:15 108 28 101/44 (63) 96 12/09/18 13:15 101/44 12/09/18 13:00 109 28 104/48 (66) 95 12/09/18 13:00 102 30 100 12/09/18 13:00 102/47 12/09/18 12:50 118/54 12/09/18 12:45 108 28 118/54 (75) 96 12/09/18 12:40 116/51 12/09/18 12:30 146/57 12/09/18 12:30 108 28 146/57 (86) 96 12/09/18 12:15 106 28 74/38 (50) 100 12/09/18 12:15 74/38 12/09/18 12:00 99.0 100 25 96/45 (62) 100 12/09/18 12:00 110 12/09/18 12:00 Mechanical Ventilator 12/09/18 12:00 96/45 12/09/18 12:00 100 12/09/18 11:50 86/45 12/09/18 11:49 88/43 12/09/18 11:45 100 28 88/43 (58) 100 12/09/18 11:45 88/43 12/09/18 11:30 115 28 93/44 (60) 98 12/09/18 11:30 93/44 12/09/18 11:15 115 28 88/44 (59) 98 12/09/18 11:15 88/44 12/09/18 11:00 114 28 101/38 (59) 96 12/09/18 11:00 101/38 12/09/18 10:45 99 28 99/38 (58) 96 12/09/18 10:45 99 30 90/34 (52) 97 12/09/18 10:45 99/38 12/09/18 10:31 116 25 100 12/09/18 10:30 91/37 12/09/18 10:30 101 30 91/37 (55) 97 12/09/18 10:15 100 28 89/35 (53) 97 12/09/18 10:15 89/35 12/09/18 10:00 100/35 12/09/18 10:00 81 28 100/35 (56) 97 12/09/18 09:45 94/43 12/09/18 09:45 118 31 94/43 (60) 100 12/09/18 09:30 93/39 12/09/18 09:30 119 31 93/39 (57) 99 12/09/18 09:27 121 32 100 12/09/18 09:15 120 32 95/40 (58) 99 12/09/18 09:15 95/40 12/09/18 09:00 120 32 105/50 (68) 98 12/09/18 09:00 105/50 12/09/18 08:49 94/27 12/09/18 08:45 60 33 116/43 (67) 95 12/09/18 08:45 94/27 12/09/18 08:33 91/25 12/09/18 08:33 70 91/25 12/09/18 08:30 69 31 93/25 (47) 100 12/09/18 08:30 93/25 12/09/18 08:15 97/26 12/09/18 08:15 75 29 97/26 (49) 94 12/09/18 08:00 100 12/09/18 08:00 Mechanical Ventilator 12/09/18 08:00 100/38 12/09/18 08:00 61 12/09/18 08:00 98.9 112 31 100/38 (58) 95 12/09/18 07:45 121 32 97/40 (59) 95 12/09/18 07:45 97/40 12/09/18 07:30 91/33 12/09/18 07:30 111 40 91/33 (52) 95 12/09/18 07:19 106 28 100 12/09/18 07:15 105 47 85/29 (47) 94 12/09/18 07:15 85/29 12/09/18 07:00 78/32 12/09/18 07:00 112 31 94/39 (57) 95 12/09/18 06:15 112 31 94/39 (57) 84 12/09/18 06:12 76/45 12/09/18 06:00 117 29 89/39 (56) 77 12/09/18 05:45 124 25 95/40 (58) 89 12/09/18 05:30 125 98/30 (52) 85 12/09/18 05:15 113 90/40 (57) 84 12/09/18 05:14 115 27 100 12/09/18 05:00 94 26 89/33 (51) 84 12/09/18 04:45 0 28 0/ 12/09/18 04:30 0 0/ 1 12/09/18 04:15 107 28 0/ 100 12/09/18 04:00 98.0 106 23 97/50 (66) 100 5/9/19 03:18 103 21 40 12/09/18 03:00 105 23 92/49 (63) 100 12/09/18 02:00 107 23 91/44 (60) 100 12/09/18 01:19 106 20 40 12/09/18 01:00 108 20 95/46 (62) 100 12/09/18 00:00 99.0 107 20 93/45 (61) 100 12/08/18 23:21 108 21 40 12/08/18 23:00 109 20 93/42 (59) 100 12/08/18 22:00 110 22 92/43 (59) 100 12/08/18 21:20 112 20 40 12/08/18 21:00 114 22 90/44 (59) 98 12/08/18 20:00 98.6 120 24 104/46 (65) 98 12/08/18 19:27 121 29 40 12/08/18 18:00 117 18 95/48 (64) 100 12/08/18 17:14 105 18 40 12/08/18 17:00 107 18 105/44 (64) 100 I&O Intake and Output 12/08/18 12/09/18 18:59 06:59 Intake Total 1026.375 ml 947.5 ml Output Total 190 ml 0 ml Balance 836.375 ml 947.5 ml IV Total 1026.375 ml 947.5 ml Output Urine Total 190 ml 0 ml Dressing: dry Wound: clean Drains: other Cardiovascular: RSR Respiratory: decreased breath sounds Abdomen: soft, non-distended, decreased bowel sounds Extremities: no cyanosis Laboratory Tests Test 12/08/18 17:05 12/08/18 20:13 12/09/18 04:15 12/09/18 04:50 Sodium Level 137 MMOL/L (136-145) 137 MMOL/L (136-145) Potassium Level 6.4 MMOL/L (3.5-5.1) *H 7.4 MMOL/L (3.5-5.1) *H Chloride Level 103 MMOL/L (98-107) 103 MMOL/L (98-107) Carbon Dioxide Level 16 MMOL/L (21-32) L 14 MMOL/L (21-32) L Anion Gap 17 mmol/L (5-15) H 20 mmol/L (5-15) H Blood Urea Nitrogen 51 mg/dL (7-18) H 57 mg/dL (7-18) H Creatinine 5.1 MG/DL (0.55-1.30) H 6.1 MG/DL (0.55-1.30) H Estimat Glomerular Filtration Rate mL/min (>60) mL/min (>60) Glucose Level 210 MG/DL (74-106) #H 126 MG/DL (74-106) H Calcium Level 7.7 MG/DL (8.5-10.1) L 7.2 MG/DL (8.5-10.1) L Activated Partial Thromboplast Time > 150 SEC (23-33) *H 116 SEC (23-33) H White Blood Count 21.1 K/UL (4.8-10.8) H Red Blood Count 3.17 M/UL (4.70-6.10) L Hemoglobin 9.7 G/DL (14.2-18.0) L Hematocrit 28.3 % (42.0-52.0) L Mean Corpuscular Volume 89 FL (80-99) Mean Corpuscular Hemoglobin 30.6 PG (27.0-31.0) Mean Corpuscular Hemoglobin Concent 34.3 G/DL (32.0-36.0) Red Cell Distribution Width 12.4 % (11.6-14.8) Platelet Count 212 K/UL (150-450) Mean Platelet Volume 7.4 FL (6.5-10.1) Neutrophils (%) (Auto) % (45.0-75.0) Lymphocytes (%) (Auto) % (20.0-45.0) Monocytes (%) (Auto) % (1.0-10.0) Eosinophils (%) (Auto) % (0.0-3.0) Basophils (%) (Auto) % (0.0-2.0) Differential Total Cells Counted 100 Neutrophils % (Manual) 66 % (45-75) Lymphocytes % (Manual) 9 % (20-45) L Monocytes % (Manual) 7 % (1-10) Eosinophils % (Manual) 0 % (0-3) Basophils % (Manual) 0 % (0-2) Band Neutrophils 18 % (0-8) H Platelet Estimate Adequate Platelet Morphology Normal Red Blood Cell Morphology Normal Total Bilirubin 0.5 MG/DL (0.2-1.0) Aspartate Amino Transf (AST/SGOT) 612 U/L (15-37) H Alanine Aminotransferase (ALT/SGPT) 71 U/L (12-78) Alkaline Phosphatase 74 U/L (46-116) Total Protein 6.1 G/DL (6.4-8.2) L Albumin 2.0 G/DL (3.4-5.0) L Globulin 4.1 g/dL Albumin/Globulin Ratio 0.5 (1.0-2.7) L Random Vancomycin Level 26.4 ug/mL Arterial Blood pH 7.074 (7.350-7.450) Arterial Blood Partial Pressure CO2 22.8 mmHg (35.0-45.0) *L Arterial Blood Partial Pressure O2 88.9 mmHg (75.0-100.0) Arterial Blood HCO3 6.5 mmol/L (22.0-26.0) *L Arterial Blood Oxygen Saturation 91.1 % (95-100) L Arterial Blood Base Excess -21.9 (-2-2) *L Pancho Test Positive Test 12/09/18 12:00 12/09/18 13:00 12/09/18 14:00 Activated Partial Thromboplast Time 133 SEC (23-33) H 102 SEC (23-33) H Arterial Blood pH 7.455 (7.350-7.450) Arterial Blood Partial Pressure CO2 20.7 mmHg (35.0-45.0) *L Arterial Blood Partial Pressure O2 149.0 mmHg (75.0-100.0) H Arterial Blood HCO3 14.2 mmol/L (22.0-26.0) *L Arterial Blood Oxygen Saturation 98.9 % (95-100) Arterial Blood Base Excess -8.1 (-2-2) L Pancho Test Positive White Blood Count 15.1 K/UL (4.8-10.8) H Red Blood Count 3.18 M/UL (4.70-6.10) L Hemoglobin 9.5 G/DL (14.2-18.0) L Hematocrit 28.5 % (42.0-52.0) L Mean Corpuscular Volume 90 FL (80-99) Mean Corpuscular Hemoglobin 30.0 PG (27.0-31.0) Mean Corpuscular Hemoglobin Concent 33.4 G/DL (32.0-36.0) Red Cell Distribution Width 12.3 % (11.6-14.8) Platelet Count 174 K/UL (150-450) Mean Platelet Volume 7.9 FL (6.5-10.1) Neutrophils (%) (Auto) 81.0 % (45.0-75.0) H Lymphocytes (%) (Auto) 14.9 % (20.0-45.0) L Monocytes (%) (Auto) 3.3 % (1.0-10.0) Eosinophils (%) (Auto) 0.1 % (0.0-3.0) Basophils (%) (Auto) 0.8 % (0.0-2.0) Sodium Level 141 MMOL/L (136-145) Potassium Level 5.8 MMOL/L (3.5-5.1) H Chloride Level 100 MMOL/L (98-107) Carbon Dioxide Level 16 MMOL/L (21-32) L Anion Gap 25 mmol/L (5-15) H Blood Urea Nitrogen 43 mg/dL (7-18) H Creatinine 5.0 MG/DL (0.55-1.30) H Estimat Glomerular Filtration Rate mL/min (>60) Glucose Level 147 MG/DL (74-106) H Calcium Level 7.2 MG/DL (8.5-10.1) L Phosphorus Level 10.0 MG/DL (2.5-4.9) H Magnesium Level 2.2 MG/DL (1.8-2.4) Plan Problems: (1) Hypotension (2) Sepsis Assessment & Plan: 73M sepsis requiring urgent venous access for meds, pressors , fluids, and monitoring procedure medically necessary and line urgently needed in ICU left subclavian line placed without complication. see note will monitor line and patient will follow with recs (3) Hyperglycemia (4) Chronic ulcer of toes (5) Renal insufficiency (6) Gait abnormality (7) HTN (hypertension) (8) Cellulitis and abscess of foot Assessment & Plan: Cont IV Abx Vascular notes with severe peripheral disease appreciate podiatry input cont with dressings and care (9) Seizure (10) Respiratory failure, acute Maurice Thomas December 09, 2018 16:15
[2018-12-09] MEDS ORDERED: NS 275ml ONE ×2 (16:20→19:54)
[2018-12-09] MEDS ORDERED: Tubing IV Secondary IV ONE ×2 (16:20→19:54)
[2018-12-09] MEDS ORDERED: Cefepime HCl 0.5 GM in D5W 55 ML IVPB SCH (18:00)
--- NOTE | 2018-12-09 18:00 | NUR ---
NURSE NOTES: Patient resting in bed, obtunded, slightly opens eyes and moves right arm at times, unable to follow commands. No seizure activity. side rails are padded. BLE mottled, cold to touch. Bilateral hands cold to touch.
--- NOTE | 2018-12-09 18:08 | Nephrology Progress Note ---
Assessment/Plan Problem List: (1) Gait abnormality (2) HTN (hypertension) Assessment: - con t prn hydralazine -hold arb with arf and hyperkalemia. -s/p hd with - 0.5 liters (3) Hyperglycemia Assessment: -follow bs in icu while npo, cont insulin, ivf for now, added lantus (4) Chronic ulcer of toes Assessment: -chronic OM on Iv abx -s/p angio with severe disease, no intervention for now, has collaterals -treat with iv heparin over night per vascular (5) Renal insufficiency Assessment: -has ATN + ckd, cont ivf, bp control, avoid nsaids. -s/p contrast , cont mucomyst, watch volume, uop closely -adjust meds to lower crcrl. -started on urgent hd, still acidotic nd hyperkalemic, now oliguric (6) Cellulitis and abscess of foot Assessment: - iv abx for 6 weeks, plan for picc line before dc home. -angio per above (7) Seizure Assessment: - neuro c/s noted -s/p ativan -head ct, eeg (8) Respiratory failure, acute Assessment: - has metabolic acidosis -cont bicarb with ivf, may need hd for acidosis -lower fio2 -pulmonary eval appreciated -cxr and vent settings reviewed pt with multiorgan failure, poor mental status, consider comfort care and terminal extuation next 24-48 hours Subjective ROS Limited/Unobtainable: Yes Subjective pt. seen and examined in icu pt no longer having seizures, d/w rn uop has dropped. on vent abg noted had code blue this am x 20min. severe hyperkalemia and acidosis, spoke with vascular, plced ctheter and started on urgent hemodialysis bs better d/w ethics, comfort care to be considered if not better next 1-2 days with dialysis Objective Objective Last 24 Hour Vital Signs Date Time Temp Pulse Resp B/P (MAP) Pulse Ox O2 Delivery O2 Flow Rate FiO2 12/09/18 18:00 101 24 102/43 (62) 100 12/09/18 18:00 102/43 12/09/18 17:45 103 24 103/43 (63) 100 12/09/18 17:45 103/43 12/09/18 17:30 102 24 99/43 (61) 100 12/09/18 17:30 99/43 5/9/19 17:15 88/44 12/09/18 17:15 103 24 88/44 (59) 100 12/09/18 17:01 103 28 100 12/09/18 17:00 95/42 12/09/18 17:00 102 24 95/42 (59) 100 12/09/18 16:45 103 24 95/45 (62) 100 12/09/18 16:45 95/45 12/09/18 16:30 98/44 12/09/18 16:30 104 22 98/44 (62) 99 12/09/18 16:15 102 26 95/42 (59) 100 12/09/18 16:15 95/42 12/09/18 16:00 Mechanical Ventilator 12/09/18 16:00 103 12/09/18 16:00 100/44 12/09/18 16:00 98.6 104 25 100/44 (62) 100 12/09/18 15:45 103 22 99/42 (61) 100 12/09/18 15:45 99/42 12/09/18 15:30 102 25 104/46 (65) 98 12/09/18 15:30 104/46 12/09/18 15:16 104 29 100 12/09/18 15:15 104 27 102/46 (64) 95 12/09/18 15:13 101/45 12/09/18 15:12 101/45 12/09/18 15:00 100/45 12/09/18 15:00 103 26 100/45 (63) 96 12/09/18 14:45 104 28 98/44 (62) 93 12/09/18 14:30 104 27 96/43 (60) 95 12/09/18 14:30 96/43 12/09/18 14:15 107 28 95/42 (59) 93 12/09/18 14:15 95/42 12/09/18 14:00 106 27 109/56 (73) 93 12/09/18 14:00 109/56 12/09/18 14:00 80 12/09/18 13:52 109 27 80 12/09/18 13:45 108 28 99/46 (63) 97 12/09/18 13:45 96/46 12/09/18 13:30 108 28 98/45 (62) 98 12/09/18 13:30 98/45 12/09/18 13:15 108 28 101/44 (63) 96 12/09/18 13:15 101/44 12/09/18 13:00 109 28 104/48 (66) 95 12/09/18 13:00 102 30 100 12/09/18 13:00 102/47 12/09/18 12:50 118/54 12/09/18 12:45 108 28 118/54 (75) 96 12/09/18 12:40 116/51 12/09/18 12:30 146/57 12/09/18 12:30 108 28 146/57 (86) 96 12/09/18 12:15 106 28 74/38 (50) 100 12/09/18 12:15 74/38 12/09/18 12:00 99.0 100 25 96/45 (62) 100 12/09/18 12:00 110 12/09/18 12:00 Mechanical Ventilator 12/09/18 12:00 96/45 12/09/18 12:00 100 12/09/18 11:50 86/45 12/09/18 11:49 88/43 12/09/18 11:45 100 28 88/43 (58) 100 12/09/18 11:45 88/43 12/09/18 11:30 115 28 93/44 (60) 98 12/09/18 11:30 93/44 12/09/18 11:15 115 28 88/44 (59) 98 12/09/18 11:15 88/44 12/09/18 11:00 114 28 101/38 (59) 96 12/09/18 11:00 101/38 12/09/18 10:45 99 28 99/38 (58) 96 12/09/18 10:45 99 30 90/34 (52) 97 12/09/18 10:45 99/38 12/09/18 10:31 116 25 100 12/09/18 10:30 91/37 12/09/18 10:30 101 30 91/37 (55) 97 12/09/18 10:15 100 28 89/35 (53) 97 12/09/18 10:15 89/35 12/09/18 10:00 100/35 12/09/18 10:00 81 28 100/35 (56) 97 12/09/18 09:45 94/43 12/09/18 09:45 118 31 94/43 (60) 100 12/09/18 09:30 93/39 12/09/18 09:30 119 31 93/39 (57) 99 12/09/18 09:27 121 32 100 12/09/18 09:15 120 32 95/40 (58) 99 12/09/18 09:15 95/40 12/09/18 09:00 120 32 105/50 (68) 98 12/09/18 09:00 105/50 12/09/18 08:49 94/27 12/09/18 08:45 60 33 116/43 (67) 95 12/09/18 08:45 94/27 12/09/18 08:33 91/25 12/09/18 08:33 70 91/25 12/09/18 08:30 69 31 93/25 (47) 100 12/09/18 08:30 93/25 12/09/18 08:15 97/26 12/09/18 08:15 75 29 97/26 (49) 94 12/09/18 08:00 100 12/09/18 08:00 Mechanical Ventilator 12/09/18 08:00 100/38 12/09/18 08:00 61 12/09/18 08:00 98.9 112 31 100/38 (58) 95 12/09/18 07:45 121 32 97/40 (59) 95 12/09/18 07:45 97/40 12/09/18 07:30 91/33 12/09/18 07:30 111 40 91/33 (52) 95 12/09/18 07:19 106 28 100 12/09/18 07:15 105 47 85/29 (47) 94 12/09/18 07:15 85/29 12/09/18 07:00 78/32 12/09/18 07:00 112 31 94/39 (57) 95 12/09/18 06:15 112 31 94/39 (57) 84 12/09/18 06:12 76/45 12/09/18 06:00 117 29 89/39 (56) 77 12/09/18 05:45 124 25 95/40 (58) 89 12/09/18 05:30 125 98/30 (52) 85 12/09/18 05:15 113 90/40 (57) 84 12/09/18 05:14 115 27 100 12/09/18 05:00 94 26 89/33 (51) 84 12/09/18 04:45 0 28 0/ 12/09/18 04:30 0 0/ 1 12/09/18 04:15 107 28 0/ 100 12/09/18 04:00 98.0 106 23 97/50 (66) 100 12/09/18 03:18 103 21 40 12/09/18 03:00 105 23 92/49 (63) 100 12/09/18 02:00 107 23 91/44 (60) 100 12/09/18 01:19 106 20 40 12/09/18 01:00 108 20 95/46 (62) 100 12/09/18 00:00 99.0 107 20 93/45 (61) 100 12/08/18 23:21 108 21 40 12/08/18 23:00 109 20 93/42 (59) 100 12/08/18 22:00 110 22 92/43 (59) 100 12/08/18 21:20 112 20 40 12/08/18 21:00 114 22 90/44 (59) 98 12/08/18 20:00 98.6 120 24 104/46 (65) 98 12/08/18 19:27 121 29 40 Intake and Output 12/08/18 12/09/18 19:00 07:00 Intake Total 926.375 ml 951.47 ml Output Total 170 ml 0 ml Balance 756.375 ml 951.47 ml IV Total 926.375 ml 951.47 ml Output Urine Total 170 ml 0 ml Laboratory Tests 12/08/18 20:13: Activated Partial Thromboplast Time > 150*H 12/09/18 04:15: Activated Partial Thromboplast Time 116H, White Blood Count 21.1H, Red Blood Count 3.17L, Hemoglobin 9.7L, Hematocrit 28.3L, Mean Corpuscular Volume 89, Mean Corpuscular Hemoglobin 30.6, Mean Corpuscular Hemoglobin Concent 34.3, Red Cell Distribution Width 12.4, Platelet Count 212, Mean Platelet Volume 7.4, Neutrophils (%) (Auto) , Lymphocytes (%) (Auto) , Monocytes (%) (Auto) , Eosinophils (%) (Auto) , Basophils (%) (Auto) , Differential Total Cells Counted 100, Neutrophils % (Manual) 66, Lymphocytes % (Manual) 9L, Monocytes % ( Manual) 7, Eosinophils % (Manual) 0, Basophils % (Manual) 0, Band Neutrophils 18H, Platelet Estimate Adequate, Platelet Morphology Normal, Red Blood Cell Morphology Normal, Sodium Level 137, Potassium Level 7.4*H, Chloride Level 103, Carbon Dioxide Level 14L, Anion Gap 20H, Blood Urea Nitrogen 57H, Creatinine 6.1H, Estimat Glomerular Filtration Rate , Glucose Level 126H, Calcium Level 7.2L, Total Bilirubin 0.5, Aspartate Amino Transf (AST/SGOT) 612H, Alanine Aminotransferase (ALT/SGPT) 71, Alkaline Phosphatase 74, Total Protein 6.1L, Albumin 2.0L, Globulin 4.1, Albumin/Globulin Ratio 0.5L, Random Vancomycin Level 26.4 12/09/18 04:50: Arterial Blood pH 7.074*L, Arterial Blood Partial Pressure CO2 22.8*L, Arterial Blood Partial Pressure O2 88.9, Arterial Blood HCO3 6.5*L, Arterial Blood Oxygen Saturation 91.1L, Arterial Blood Base Excess -21.9*L, Pancho Test Positive 12/09/18 12:00: Activated Partial Thromboplast Time 133H 12/09/18 13:00: Arterial Blood pH 7.455H, Arterial Blood Partial Pressure CO2 20.7*L, Arterial Blood Partial Pressure O2 149.0H, Arterial Blood HCO3 14.2*L, Arterial Blood Oxygen Saturation 98.9, Arterial Blood Base Excess -8.1L, Pancho Test Positive 12/09/18 14:00: White Blood Count 15.1H, Red Blood Count 3.18L, Hemoglobin 9.5L, Hematocrit 28.5L, Mean Corpuscular Volume 90, Mean Corpuscular Hemoglobin 30.0, Mean Corpuscular Hemoglobin Concent 33.4, Red Cell Distribution Width 12.3, Platelet Count 174, Mean Platelet Volume 7.9, Neutrophils (%) (Auto) 81.0H, Lymphocytes ( %) (Auto) 14.9L, Monocytes (%) (Auto) 3.3, Eosinophils (%) (Auto) 0.1, Basophils (%) (Auto) 0.8, Activated Partial Thromboplast Time 102H, Sodium Level 141, Potassium Level 5.8H, Chloride Level 100, Carbon Dioxide Level 16L, Anion Gap 25H, Blood Urea Nitrogen 43H, Creatinine 5.0H, Estimat Glomerular Filtration Rate , Glucose Level 147H, Calcium Level 7.2L, Phosphorus Level 10.0H , Magnesium Level 2.2 Height (Feet): 5 Height (Inches): 6.00 Weight (Pounds): 175 General Appearance: lethargic EENT: PERRL/EOMI Cardiovascular: normal rate Respiratory/Chest: decreased breath sounds Abdomen: hypoactive bowel sounds Neurologic: no pronator drift, unresponsive Fred Kearney M.D. December 09, 2018 18:08
--- NOTE | 2018-12-09 18:18 | NUR ---
NURSE NOTES: Patient seen by Dr. Kearney. updated on pt's condition.
--- NOTE | 2018-12-09 18:23 | NUR ---
NURSE NOTES: Called [facility] dialysis center for HD order for tomorrow.
--- NOTE | 2018-12-09 19:16 | NUR ---
HAND-OFF: Report given to TAMMY Lynn.
--- NOTE | 2018-12-09 19:30 | NUR ---
NURSE NOTES: Received pt in critical, grave condition.Comatose but still with gag reflex.Doesn't spontaneously move any extremity; no response to deep pain.BLE cold to touch, mottled with no femoral pulse bilaterally all the way down to DP either by palpation or doppler. Pt has known to have occlusion aorto-iliac region. Brachial pulses palpable. Pt has an Carlota on the left brachial area correlating with NIBP. Zeroed at the start of the shift. Right IJ HD cath in place covered with clean and dry dressing. Pt also lizarraga 1unit/kg/hs a left SC TLC, Levophed gtt infuses at 8mcg/min; Hepatin gtt at 1unit/kg/h. ST on the monitor, afebrile. FC in place but oliguric-anuric. Incontinent of large amount of brown semi liquid stool. Remains orally intubated with #8ETT, placed over right lip at 22cm. Noted vent settings of [id number] peep5, saturating 100%. Will continue to monitor closely lucie BP and titrate levophed prn
[2018-12-09] MEDS ORDERED: Sodium Bicarbonate 100 ML in D5 1/2NS 1,000 ML IV SCH (20:00)
--- NOTE | 2018-12-09 21:00 | NUR ---
NURSE NOTES: Accucheck 125. Half dose of Levemir given as pt still NPO. No bleeding noted. Anuric
[2018-12-09] MEDS ORDERED: Heparin 5000 units/ml inj IV SCH (23:15)
[2018-12-10] VITALS (18 sets, daily range): BP systolic 42–130; BP diastolic 22–86
--- NOTE | 2018-12-10 00:55 | NUR ---
NURSE NOTES: Asystole on all leads. No Brachial pulse, Carlota 0. Code blue called(see code blue sheet)
--- NOTE | 2018-12-10 00:59 | NUR ---
NURSE NOTES: ROSC. Resumed vent and monitoring.
--- NOTE | 2018-12-10 01:00 | Electroencephalogram ---
DATE OF PROCEDURE: 12/08/2018 REQUESTING PHYSICIAN: Paxton Suero M.D. READING PHYSICIAN: Moy Dodd M.D. PROCEDURE PERFORMED: Electroencephalogram. HISTORY: This EEG was performed on a 73-year-old gentleman with a history of a postoperative seizure. The purpose of this EEG was to evaluate the patient for the degree and type of cerebral dysfunction. TECHNICAL NOTE: This EEG was performed on a [employer] with electrodes placed on the scalp according to the International 10-20 system. [id number] and [id number] montages were used. The EEG was technically satisfactory and was performed while the patient was in a poorly responsive state. OBSERVATIONS: In the poorly responsive state, the background activity consisted of 4-5 Hz theta with intermixed 1.5-2 Hz delta frequencies. Triphasic waveforms with an anterior to posterior gradient were also seen. Parts of the EEG were marked by sweat artifact. No definite focal abnormalities or epileptiform discharges were seen. IMPRESSION: This is an abnormal EEG characterized by slowing of the background in the theta and delta range with intermixed triphasic waveforms. COMMENT: This study is consistent with an encephalopathy of a moderately severe degree with a possible toxic metabolic component as evidenced by the triphasic waveforms. Clinical correlation is recommended. Moy Dodd M.D., M.S.P.H. DR: DON JOB#: [id number] [facility]ITAL[facility]
--- NOTE | 2018-12-10 01:04 | Emergency Room Report ---
History of Present Illness General Chief Complaint: Skin Rash/Abscess Source: Medical Record Present Illness Allergies: Coded Allergies: ACETAMINOPHEN (Verified Allergy, Unknown, 12/02/18) PENICILLINS (Unverified Allergy, Unknown, 12/04/18) Pork (Verified Allergy, Unknown, 12/02/18) Uncoded Allergies: PENICILLIN (Allergy, Unknown, 12/02/18) Nursing Documentation-H Past Medical History: No History, Except For Hx Cardiac Problems: Yes Hx Hypertension: Yes Hx Diabetes: Yes - Type 1 Diabetes Hx Cancer: No Hx Gastrointestinal Problems: No Hx Dialysis: Yes - CKD, AKF, BPH History Of Psychiatric Problem: Yes - Major depression Hx Neurological Problems: Yes - Dementia Physical Exam Vital Signs Date Time Temp Pulse Resp B/P (MAP) Pulse Ox O2 Delivery O2 Flow Rate FiO2 12/06/18 08:00 97.7 82 17 131/60 (83) 96 12/06/18 09:29 Room Air 12/07/18 18:10 100 12/07/18 18:13 50.0 Procedures CPR/Code Blue CPR/Code Blue Narrative Was called after patient had cardiac arrest. Patient noted to have asystole. He was given 1 dose of epinephrine medications as per code sheet. Patient had Rosc. Patient was noted to have prior history of being on multiple multiple pressors. Patient was noted to have return of circulation with blood pressure which was adequate. Medical Decision Making Diagnostic Impression: Primary Impression: Cellulitis and abscess of foot Additional Impressions: Chronic ulcer of toes Hyperglycemia Renal insufficiency Last Vital Signs Date Time Temp Pulse Resp B/P (MAP) Pulse Ox O2 Delivery O2 Flow Rate FiO2 12/10/18 00:03 90 12/10/18 00:02 103 12/10/18 00:00 Mechanical Ventilator 12/09/18 23:30 28 98/54 (69) 100 12/09/18 19:30 98.0 12/07/18 18:13 50.0 Disposition: ADMITTED INPATIENT Condition: Serious Referrals: Fred Kearney M.D. (PCP) Roby Garg MD December 10, 2018 01:04
--- NOTE | 2018-12-10 01:10 | NUR ---
NURSE NOTES: called dr. virgen regarding code blue and notified him that sbp drops to 80's with max dose of levophed at 30 mcg/min, no new orders
--- NOTE | 2018-12-10 02:00 | NUR ---
NURSE NOTES: Critical, comatose with unstable VS. Pressors at max dose. Maintained defib pad connections and cardiac board. Continue to monitor closely
--- NOTE | 2018-12-10 04:00 | NUR ---
NURSE NOTES: Incontinent of large amt of brown stools. Cleaned. Lower back down to legs mottled and cold. Femoral pulses negative but right brachial pulse audible by doppler but weak. Junctional rhythm, [place] BP 67/25. Comatose, no response even to deep pain, negative gag reflex. Very unstable. Levophed gtt at 30mcg/min. Heparin gtt continues at 3units/kg/h
[2018-12-10] MEDS: NovoLOG Insulin Flexpen SUBQ SCH (05:54)
--- NOTE | 2018-12-10 06:00 | NUR ---
NURSE NOTES: Asystole on all leads; no pulse even with doppler. Code blue called.See Code blue sheet
[2018-12-10 06:03] LABS: HEMATOCRIT 25.8 % (42.0-52.0); HEMOGLOBIN 8.2 G/DL (14.2-18.0); MEAN CORPUSCULAR VOLUME 97 FL (80-99); PLATELET COUNT 143 K/UL (150-450); RED BLOOD COUNT 2.66 M/UL (4.70-6.10); RED CELL DISTRIBUTION WIDTH 13.3 % (11.6-14.8); WHITE BLOOD COUNT 19.9 K/UL (4.8-10.8)
[2018-12-10] MEDS ORDERED: Levophed 4mg/4mL Inj IV ONE (06:10)
--- NOTE | 2018-12-10 06:10 | NUR ---
NURSE NOTES: ROSC obtained. Resumed vent and monitoring
[2018-12-10 06:12] LABS: ANION GAP 35 mmol/L (5-15); BLOOD UREA NITROGEN 58 mg/dL (7-18); CALCIUM 6.6 MG/DL (8.5-10.1); CHLORIDE 96 MMOL/L (98-107); SODIUM 138 MMOL/L (136-145)
--- NOTE | 2018-12-10 06:15 | NUR ---
NURSE NOTES: dr. virgen called because patient has code blue again, no answer
--- NOTE | 2018-12-10 06:24 | NUR ---
NURSE NOTES: Pulseless, asystole on all leads; code blue called again See Code blue sheet
[2018-12-10 06:25] LABS: CARBON DIOXIDE 7 MMOL/L (21-32); POTASSIUM 8.6 MMOL/L (3.5-5.1)
[2018-12-10] MEDS ORDERED: Sodium Bicarbonate 50ml Carp ONE ×2 (06:27→06:59)
--- NOTE | 2018-12-10 06:30 | NUR ---
NURSE NOTES: navarro ron called again,potassium lab result of 8.6, called but no response
--- NOTE | 2018-12-10 06:36 | NUR ---
RESPIRATORY NOTE: CODE BLUE: Code Blue called at 0624, pt is already intubated. Per nurse, no pulse. High quality CPR started right away. Pt successfully resuscitated after a few rounds of CPR and meds. ROSC at 0636.Pt placed back on the current vent settings of AC 14, 550ml, FiO2 100% PEEP of 5. Will continue to monitor.
--- NOTE | 2018-12-10 06:36 | NUR ---
NURSE NOTES: ROSC; resumed ICU care
--- NOTE | 2018-12-10 06:43 | Emergency Room Report ---
History of Present Illness General Chief Complaint: Skin Rash/Abscess Source: Medical Record Present Illness Allergies: Coded Allergies: ACETAMINOPHEN (Verified Allergy, Unknown, 12/02/18) PENICILLINS (Unverified Allergy, Unknown, 12/04/18) Pork (Verified Allergy, Unknown, 12/02/18) Uncoded Allergies: PENICILLIN (Allergy, Unknown, 12/02/18) Nursing Documentation-H Past Medical History: No History, Except For Hx Cardiac Problems: Yes Hx Hypertension: Yes Hx Diabetes: Yes - Type 1 Diabetes Hx Cancer: No Hx Gastrointestinal Problems: No Hx Dialysis: Yes - CKD, AKF, BPH History Of Psychiatric Problem: Yes - Major depression Hx Neurological Problems: Yes - Dementia Physical Exam Vital Signs Date Time Temp Pulse Resp B/P (MAP) Pulse Ox O2 Delivery O2 Flow Rate FiO2 12/06/18 08:00 97.7 82 17 131/60 (83) 96 12/06/18 09:29 Room Air 12/07/18 18:10 100 12/07/18 18:13 50.0 Medical Decision Making Diagnostic Impression: Primary Impression: Cellulitis and abscess of foot Additional Impressions: Chronic ulcer of toes Hyperglycemia Renal insufficiency ER Course I was called to evaluate patient after asystolic arrest. Patient was noted to have been given epinephrine and CPR prior to arrival. Patient was given medications as per code sheet. Patient was defibrillated x1. Patient had a return of spontaneous circulation. Last Vital Signs Date Time Temp Pulse Resp B/P (MAP) Pulse Ox O2 Delivery O2 Flow Rate FiO2 12/10/18 06:17 149/53 12/10/18 05:06 60 23 100 12/10/18 04:00 Mechanical Ventilator 12/10/18 04:00 99.1 91 12/07/18 18:13 50.0 Disposition: ADMITTED INPATIENT Condition: Serious Referrals: Fred Kearney M.D. (PCP) Roby Garg MD December 10, 2018 06:43
--- NOTE | 2018-12-10 06:55 | NUR ---
NURSE NOTES: Pulseless, asystole on all leads. Code blue called; called PMD. See Code blue sheet
[2018-12-10] MEDS ORDERED: D5W 275ml ONE (06:59)
[2018-12-10] MEDS ORDERED: NS 275ml ONE (06:59)
[2018-12-10] MEDS ORDERED: NS 500ML ONE (06:59)
[2018-12-10] MEDS ORDERED: Tubing IV Secondary IV ONE (06:59)
[2018-12-10] MEDS ORDERED: Calcium Chloride 10% 10ml carpuject IVP ONE (06:59)
[2018-12-10] MEDS ORDERED: Vancomycin 1gm/D5W 275ml IVPB ONE ×2 (07:00)
--- NOTE | 2018-12-10 07:00 | NUR ---
NURSE NOTES: Code blue outcome unsuccessful ; pronounced by Dr Barakat. Dr Echevarria called and informed of the outcome.
--- NOTE | 2018-12-10 07:00 | NUR ---
RESPIRATORY NOTE: CODE BLUE: Code Blue called at 0655, pt is already intubated. Per nurse, no pulse. High quality CPR started right away. Pt was not successfully resuscitated after a few rounds of CPR and meds. pronouced time of at 0700.
--- NOTE | 2018-12-10 08:00 | NUR ---
NURSE NOTES: [employer] called, [id number]. Residential Worker's office called but declared not a audio production engineer's case. Called Jimenez Avalos who is listed as son on facesheet but voicemail is full, made several attempts to call but unsuccessful. Belongings, including upper/lower dentures, $117.25 mendoza, wallet, bracelet, necklace, x1 pair of socks given to mix house tender to put in safe. Patient was cleaned, placed in body bag and transported to [facility].
[2018-12-10] MEDS ORDERED: Pantoprazole Inj IVP SCH (09:00)
[2018-12-10] MEDS ORDERED: Dyna-Hex 2% Top Sol 2oz TOPIC SCH ×2 (20:00)
--- NOTE | 2018-12-14 00:26 | Physician Query ---
--------- THIS DOCUMENT IS A PERMANENT PART OF THE MEDICAL RECORD --------- PLEASE COMPLETE THE FORM BEFORE SIGNING Dear Dr. Brown Date: 12/14/18 Casting Operator Helper/CDS Name:Haleigh Marie, CCS, CCDS Exercise your independent professional judgment when responding to query. Questions asked do not imply particular answer is desired or expected. We greatly appreciate your clarification on this issue. Because there is documentation in the medical record of "Debridement", clarification is needed. Please document whether this is "Excisional" or "Nonexcisional" Debridement of the wound, infection or burn. Your procedure note states: The toes one and third were anesthetized utilizing a 2% lidocaine plain with a syringe and needle proximal aspect at the metatarsophalangeal joint. Once the toe was noted to be anesthetized, the toes were scrubbed with Betadine. Utilizing sharp sterile instruments, the hallux nail and third toenail were avulsed in total. The wound was then cleansed with normal saline. All nonviable tissue were debrided. Purulent matter were cleaned out and noted to be satisfactory. Bleeding noted to both hallux and third toe. Utilizing sharp debridement, ulcerations to the medial aspect of the first distal toe and third dorsum distal toe ulceration were debrided out to sufficient granulating bleeding tissue to subcutaneous. Please document type of debridement performed. [] Excisional: The removal of necrotic, devitalized tissue or slough by means of cutting away of tissue (the use of scissors, scalpel or curette are common). [] Nonexcisional: The removal of necrotic, devitalized tissue or slough by means of flushing, brushing or washing (irrigating). Documentation should also include the "depth" of tissue removed, e.g., skin, fascia, muscle or bone. Please document the appropriate type of Debridement on the Progress Notes or on this form as an addendum to the patient's record. (Sign and date all documents). Andrea Brown DPM Date MTDD
--- NOTE | 2018-12-15 15:30 | Operative Note - Dictated ---
NOTE: INCOMPLETE DICTATION: PREOPERATIVE DIAGNOSES: 1. Acute renal failure. 2. Need for dialysis access. POSTOPERATIVE DIAGNOSES: 1. Acute renal failure. 2. Need for dialysis access as well as findings below. PROCEDURE: 1. Placement of a dialysis catheter via right internal jugular vein (Trialysis). 2. Intraoperative ultrasound. SURGEON: Robinson Hernandez M.D. ANESTHESIA: Local. INDICATION: The patient is to be started on dialysis per medical attendant and a catheter access was requested. INTRAOPERATIVE FINDINGS: The right internal jugular vein was patent and the catheter placed as described below without difficulty. There was good blood return through the catheter Robinson Hernandez M.D. DR: MALIHA JOB#: [id number] CC:
--- NOTE | 2018-12-16 12:46 | Discharge Summary ---
Discharge Summary Discharge Summary _ SUMMARY DATE OF ADMISSION: 12/02/2018 DATE OF EXPIRATION: 12/10/2018 REASON FOR ADMISSION: 73 years old male with past medical history of diabetes mellitus, hypertension, GERD, dementia, chronic foot ulcer, end-stage renal disease , on hemodialysis, BPH, diabetes mellitus, depression, anxiety, chronic foot ulcers, was [facility] for evaluation of right foot ongoing infection. Patient complained of pain in above-mentioned location. [facility] with oral antibiotic , however symptoms worsen. No reported fever or chills. No nausea or vomiting. Upon evaluation vital signs were stable. Laboratory work-up revealed no leukocytosis, hemoglobin 12.7, hematocrit 30.4. Stable electrolytes. BUN 28, creatinine 1.5. Glucose 238. Lactic acid 2.0. Albumin 3.2 EKG revealed sinus rhythm, no acute ischemic changes . Chest x-ray revealed no acute cardiopulmonary pathology . Patient admitted for management of cellulitis and abscess of the foot. CONSULTANTS: neurologist Dr. Suero pulmonary Dr. Baron ID specialist general surgery Dr. Thomas vascular surgery Dr. Hernandez net software architect Dr. Raycarlene [facility]: Patient admitted and started on empiric antibiotic. Podiatry seen and evaluated patient Patient undergone avulsion of hallux nail and third toenail. Patient also undergone debridement of the first and third toes. Wound care provided as per net software architect recommendation. Antibiotic provided as per ID recommendation. Blood cultures were negative. Wound culture revealed Proteus and MRSA. Repeated blood cultures were negative. Right foot x-ray revealed mild heterogeneity of the head of the first metatarsal. Could be from surgical changes or trauma of uncertain chronicity. Patient subsequently undergone MRI of the right food , which revealed suspected acute osteomyelitis , involving the distal phalange of the first and third toes. Adjacent ulceration and cellulitis of the forefoot noted. With the finding of osteomyelitis and plan for extended course of IV antibiotic for 6 weeks , PICC line was planned. Pain management was addressed. Supportive care provided. Venous duplex of bilateral lower extremity revealed no evidence of acute DVT. Arterial Duplex revealed findings suggestive of aortoiliac arterial occlusive disease left lower extremity and moderate to severe stenosis right lower extremity distal superficial femoral vein. Patient subsequently undergone on 12/07/18 abdominal aortogram with bilateral iliofemoral angiogram, thoracoabdominal aortogram, selective bilateral leg angiography Patient was found to have occluded aortoiliac system. Per vascular surgeon report, initial attempt at the selective angiography through the femoral approach was unsuccessful with poor images and required a left brachial approach to obtain an adequate aortogram. 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 Given a history of possible aneurysm and previously attempted percutaneous revascularization, which was not completed at another hospital by another physician, the determination was that the patient will likely require major surgical intervention. Multiple attempts were made to reach the patient's next of kin, but this was unsuccessful. Discussion with the primary physician at the time of the procedure were held , and he decision was made to further optimize the patient and work him up by Internal Medicine and Cardiology for clearance before possible surgical revascularization, which may likely require transfer to a higher level of care facility. Patient was started on heparin drip . Patient was intubated for procedure and left intubated after procedure due to unresponsiveness. Patient required intravenous access for IV antibiotics and due to poor venous access , hypotension and tachycardia . Central line was placed via left subclavian vein on 12/08/18 by general surgeon. Chest x-ray confirmed proper placement Patient experienced episode of possible seizure. Neuro consult was requested. Per neuro ,EEG and CT scan of the brain were ordered. Neurologist also recommended to keep sodium in appropriate rate and maintain normothermia and normoglycemia. Neuro checks were done every [address] of the head revealed no evidence of acute intracranial bleeding mass-effect or midline shift. Small focal area of low attenuation/encephalomalacia in the right frontal lobe likely representing sequela of remote ischemia. Atrophy and nonspecific periventricular hypoattenuation suggestive of chronic ischemic microvascular changes. EEG was abnormal, consistent with moderately severe degree of possible toxic metabolic component, as evidenced by triphasic waveforms. Ventilator support and pulmonary toilet provided. Broker Associate followed. Pulmonary toilet provided. Patient suctioned as needed. DVT prophylaxis provided. Renal function worsened. Patient was off ARB due to acute renal failure and hyperkalemia, and stared on Hydralazine, Patient undergone placement of hemodialysis catheter via right internal jugular vein on 12/09. Patient started on hemodialysis with close monitoring of volumes and cardiorenal parameters. CODE BLUE was called on 12/09 due to asystolic arrest. CODE BLUE initiated as per ACLS protocol. Patient received 1 amp of epinephrine , treated for hyperkalemia with bicarbonate and calcium, and had spontaneous return of circulation. Patient later had recurrence of asystole and episode of ventricular fibrillation, for which he was defibrillated x1 . Patient subsequently had return of spontaneous circulation. Patient started on Levophed drip. Hemodynamic status was closely monitored with goal to keep mean arterial blood pressure above 65. Neurologist followed. No changes in mental status. Patient had a poor neuro exam . Seizures precautions were maintained. No further evidence of seizure activity. On another CODE BLUE was called due to a systolic cardiac arrest. After epinephrine patient had a spontaneous return of circulation. The last CODE BLUE was called on early years teacher due to a systolic arrest patient was given epinephrine and started on CPR. Patient was given medication as per ACLS protocol. Patient was defibrillated x1. Patient had return of spontaneous duration last CODE BLUE was called ID specialist closely followed. Patient developed leukocytosis on 12/07, which remained persistent along with fevers. Repeated blood culture were negative. Sputum culture revealed Donna. Per ID specialist, patient likely had health care associated versus aspiration pneumonia. Elevated lactic acid noted. Antibiotic regimen continued as per ID specialist recommendations. Patient required 6 weeks of antibiotic for treatment of osteomyelitis. PICC line was planned prior to discharge. Patient was followed-up with chest x-ray. FiO2 increased to 100%. Patient with evidence of metabolic acidosis. IV fluids with bicarbonate provided. Patient had acute tubular necrosis on chronic kidney disease. Nonsteroidal anti-inflammatory were avoided. Patient received IV contrast prior for procedure and started on Mucomyst. Volumes and renal parameters were closely monitored. All medications were renally dosed . Patient started on urgent hemodialysis , since patient was acidotic and hyperkalemic. Hyperkalemia treated. During hemodialysis on 12/09 only minimal amount 500 mL of fluid was removed due to hypotension and being on pressor. Renal ultrasound demonstrated normal bilateral kidney echogenicity no hydronephrosis. Hemoglobin and hematocrit were closely monitored with goal to keep hemoglobin above 7. Prior to expiration hemoglobin 8.2. hematocrit 25.8. Serial troponin x2 were negative. Patient was continued on Heparin drip. Condition remained critical Overall prognosis appeared grim. Patient with multiple organ failure , poor neuro exam, hemodynamic instability and intubated. Plan was for comfort care and terminal extubation over the next 24 to 48 hours. Patient had total of 4 CODE BLUE at night on 510 due to asystolic arrest. During the last cardiopulmonary arrest , all resuscitative attempts appeared to be futile. Patient was subsequently pronounced at 07:00 on 12/10 . 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 I was not involved in the patient's management. Jerri Carrillo NP December 16, 2018 12:46
--- NOTE | 2018-12-20 23:45 | Operative Note - Dictated ---
DATE OF OPERATION: 12/09/2018 PREOPERATIVE DIAGNOSES: 1. Acute renal failure. 2. Need for dialysis catheter. POSTOPERATIVE DIAGNOSES: 1. Acute renal failure. 2. Need for dialysis catheter. FINDINGS: Below. PROCEDURES: 1. Placement of a dialysis catheter via right internal jugular vein. 2. Intraoperative ultrasound. SURGEON: Robinson Hernandez M.D. ANESTHESIA: Local. INDICATION: The patient to be started on hemodialysis per ms sql dba recommendation and an urgent dialysis access was requested. The procedure is emergency needed per ms sql dba and no next of kin or conservator is available for consent and therefore the procedure was performed due to medical necessity. INTRAOPERATIVE FINDINGS: The right internal jugular vein was patent and the catheter placed without difficulty as described below with good venous blood return obtained from both ports of the catheter. The patient remained hemodynamically stable throughout the procedure and chest x-ray was ordered postoperatively to rule out hemopneumothorax. PROCEDURE IN DETAIL: With the patient in the Trendelenburg position and after the right side of the neck was prepped and draped in the usual sterile fashion, skin was infiltrated with local anesthetic and the right internal jugular vein through the posterior portion of the right sternocleidomastoid muscle under ultrasound guidance with a needle using a single wall puncture and modified Seldinger technique, the wire was advanced into the vein and the needle removed. A small arcelia was made at the puncture site in the skin and after sterile dilation of the tract, the Trialysis catheter was placed over the wire into the vessel without difficulty. The wire was removed and a good venous blood return was obtained from all ports of the catheter, which were flushed with heparinized saline and capped. The catheter was secured to the skin with nylon sutures and sterile dressings were placed. The patient tolerated the procedure well. ESTIMATED BLOOD LOSS: Minimal. COMPLICATIONS: None. Procedure was performed using maximal sterile barrier technique. Robinson Hernandez M.D. DR: LAST JOB#: [id number] CC: Jonah Amos M.D. ; FAX#: [phone]
--- NOTE | 2018-12-28 17:45 | Consultation ---
DATE OF CONSULTATION: 12/06/2018 VASCULAR SURGICAL CONSULTATION: CONSULTING PHYSICIAN: Robinson Hernandez M.D. REFERRING PHYSICIAN: Fred Kearney M.D. REASON FOR CONSULTATION: Pain in lower extremities and nonhealing wound of the foot. HISTORY OF PRESENT ILLNESS: This is s a 73-year-old male, resident [facility] a [facility] facility where he has been noted to have a wound developed in his right foot for the past few weeks that is not healing. The patient reportedly has also been complaining of pain and has been evaluated by other physicians and recommended to be transferred for admission to the hospital and further workup. The patient reports pain and inability to ambulate as a result. Through a quality assurance assistant, he states that he has had a procedure performed at another hospital, but does not recall exactly what and that has not helped with his pain or healing of the foot ulcer. He denies smoking and does not recall any trauma to the foot. He denies any chest pain or shortness of breath. He denies a history of stroke or myocardial infarction. PAST MEDICAL HISTORY: Significant for chronic kidney disease stage 3, history of type 2 diabetes mellitus. He has a history of hypertension and history of gastritis. FAMILY HISTORY: Unobtainable. MEDICATIONS: As listed in the MAR. ALLERGIES: Include acetaminophen, penicillins, and pork. SOCIAL HISTORY: Denies smoking or alcohol use or any drug use. REVIEW OF SYSTEMS: As outlined above. Otherwise, no relevant positives. PHYSICAL EXAMINATION: GENERAL: He is in mild distress. VITAL SIGNS: The patient is afebrile. Heart rate of 70, respiratory rate of 16, blood pressure 150/75. HEENT: Normocephalic, atraumatic. EOMI. Anicteric. NECK: Supple. No JVD. No carotid bruits. No palpable mass. No thyromegaly. HEART: Regular rate and rhythm. LUNGS: Clear to auscultation. ABDOMEN: Soft, nontender, nondistended. EXTREMITIES: No edema. Radial pulses are palpable and normal. The lower extremities are somewhat mottled and slightly cool. Able to move the toes, but no pedal pulses are palpable. The femoral pulses are weak. The right foot shows toe ulcer with mild erythema locally. Slight discharge and tenderness to the touch. No gangrenous changes. NEUROLOGICAL: Grossly nonfocal. LABORATORY AND IMAGING: Reports reviewed. ASSESSMENT: 1. Multilevel arterial occlusive disease of the lower extremities in a diabetic patient with pain and nonhealing wound of the foot. 2. The patient has chronic renal insufficiency, which limits the options for further workup such as contrast studies. RECOMMENDATIONS: The patient was discussed with the referring physician and the findings and recommendation explained to him through a quality assurance assistant. He has renal insufficiency and further workup with contrast must be limited. Therefore, a CT angiogram is not an option at this time and since definitive revascularization plans are necessary, the best option is probably a limited angiogram to determine further course of action. We will review outside records to the extent available and further discuss with the patient and the family as well as the team for definitive revascularization plans. The patient will receive hydration and renal optimization prior to the selective angiogram after discussion with Dr. Kearney, who agrees with the plan. The patient will have follow up with Podiatry for local wound care and antibiotics will be continued in the meantime. Further preoperative workup including cardiology clearance for potential surgical revascularization is recommended and we will further plan intervention accordingly. Robinson Hernandez M.D. DR: MALIHA JOB#: [id number] CC: Jonah Grullon M.D. ; FAX#: [phone]
--- NOTE | 2018-12-28 19:30 | Operative Note - Dictated ---
DATE OF OPERATION: 12/07/2018 PREOPERATIVE DIAGNOSES: 1. 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 2. Rest pain of the lower extremities. 3. Nonhealing wound in the foot. 4. Diabetes mellitus. 5. Renal insufficiency. POSTOPERATIVE DIAGNOSES: 1. 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 2. Rest pain of the lower extremities. 3. Nonhealing wound in the foot. 4. Diabetes mellitus. 5. Renal insufficiency as well as findings below. PROCEDURES: 1. Bilateral common femoral retrograde access and introducer sheath placement. 2. Left brachial artery access and introducer sheath placement. 3. Catheterization via left common femoral artery with the catheter tip in the abdominal aorta. 4. Catheterization via right common femoral artery with catheter tip in the abdominal aorta. 5. Catheterization in the left brachial artery with the catheter tip in the right superficial femoral artery. 6. Selective bilateral leg angiography. 7. Abdominal aortogram with bilateral iliofemoral angiogram. 8. Thoracoabdominal aortogram. SURGEON: Robinson Hernandez M.D. ANESTHESIA: General. ANESTHESIOLOGIST: Vincent Brothers M.D. INDICATION: The patient has been complaining of pain and nonhealing wound in the lower extremity as detailed in the preoperative consultation report. An angiogram to assess revascularization options was recommended and the patient cleared by the primary physician and implementation technician and optimized his renal function for the planned procedure. INTRAOPERATIVE FINDINGS/INTERPRETATION OF RESULTS: Initial attempt at the selective angiography through the femoral approach was unsuccessful with poor images and required a left brachial approach to obtain an adequate aortogram as detailed below. 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 Given a history of possible aneurysm and previously attempted percutaneous revascularization, which was not completed at another hospital by another physician. The determination was that the patient will likely require major surgical intervention. Multiple attempts were made to reach the patient's next of kin, but this was unsuccessful. Discussion with the primary physician at the time of the procedure were held and the decision was made to further optimize the patient and work him up by Internal Medicine and Cardiology for clearance before possible surgical revascularization, which may require transfer to a higher level of care facility. PROCEDURE IN DETAIL: With the patient in supine position, after the groins were shaved, prepped and draped in usual sterile fashion, both femoral arteries were first attempted for access under ultrasound and fluoroscopic guidance using a micropuncture needle and a wire advanced into the vessel over which the micro introducer sheath and dilator were placed coaxially into the vessels and then exchanged for a 5-Azeri sheath over the wire. Different wires and catheters were used to position the catheter in the abdominal aorta where some contrast was administered, but adequate images could not be obtained because of what appeared to be an occluded aortoiliac system. Therefore, the left arm was prepped and draped and the left brachial artery at the level of the antecubital fossa was accessed in a similar fashion. The wire and catheter were advanced under fluoroscopic guidance into the abdominal aorta or a bolus of contrast was not administered and using digital subtraction technique, an aortogram was obtained and the above findings were noted. The decision was made to terminate the procedure. The groin sheaths were removed and manual compression was maintained for hemostasis. The patient was transferred out of the room in stable condition. ESTIMATED BLOOD LOSS: Minimal. TOTAL FLUOROSCOPY TIME: 28 minutes. TOTAL CONTRAST: 105 mL. Robinson Hernandez M.D. DR: MALIHA JOB#: [id number] CC: Jonah Grullon M.D. ; FAX#: [phone]
== END 2018-12-10 07:00 | disposition expired | DRG 570 ==
LOC: EDBD 14:01 → EMR 15:09 → 4E 15:20 → EDBEDREQ 16:57 → 4E 23:22 → ICU 12-07 17:45
PROC: 0HDRXZZ Extraction of Toe Nail, External Approach (ICD-10-PCS; principal; 2018-12-03)
PROC: 0JBQ0ZZ Excision of Right Foot Subcutaneous Tissue and Fascia, Open Approach (ICD-10-PCS; principal; 2018-12-03)
PROC: B31 Imaging, Upper Arteries, Fluoroscopy (ICD-10-PCS; 2018-12-07)
PROC: 5A1945Z Respiratory Ventilation, 24-96 Consecutive Hours (ICD-10-PCS; 2018-12-07)
PROC: 0BH17EZ Insertion of Endotracheal Airway into Trachea, Via Natural or Artificial Opening (ICD-10-PCS; 2018-12-07)
PROC: B41DZZZ Fluoroscopy of Aorta and Bilateral Lower Extremity Arteries (ICD-10-PCS; 2018-12-07)
PROC: 05H633Z Insertion of Infusion Device into Left Subclavian Vein, Percutaneous Approach (ICD-10-PCS; 2018-12-08)
PROC: 5A1D70Z Performance of Urinary Filtration, Intermittent, Less than 6 Hours Per Day (ICD-10-PCS; 2018-12-09)
PROC: 05HM33Z Insertion of Infusion Device into Right Internal Jugular Vein, Percutaneous Approach (ICD-10-PCS; 2018-12-09)
PROC: B543ZZA Ultrasonography of Right Jugular Veins, Guidance (ICD-10-PCS; 2018-12-09)
DX: L03.115 Cellulitis of right lower limb (principal); J96.00 Acute respiratory failure, unspecified whether with hypoxia or hypercapnia; A41.9 Sepsis, unspecified organism; J69.0 Pneumonitis due to inhalation of food and vomit; J18.9 Pneumonia, unspecified organism; N17.0 Acute kidney failure with tubular necrosis; G92 Toxic encephalopathy; G93.1 Anoxic brain damage, not elsewhere classified; M86.8X7 Other osteomyelitis, ankle and foot; I74.09 Other arterial embolism and thrombosis of abdominal aorta; E46 Unspecified protein-calorie malnutrition; N17.9 Acute kidney failure, unspecified; L03.031 Cellulitis of right toe; E11.65 Type 2 diabetes mellitus with hyperglycemia; E11.621 Type 2 diabetes mellitus with foot ulcer; L97.519 Non-pressure chronic ulcer of other part of right foot with unspecified severity; I49.01 Ventricular fibrillation; I95.9 Hypotension, unspecified; Z68.28 Body mass index [BMI] 28.0-28.9, adult; I12.9 Hypertensive chronic kidney disease with stage 1 through stage 4 chronic kidney disease, or unspecified chronic kidney disease; E11.22 Type 2 diabetes mellitus with diabetic chronic kidney disease; N18.3 Chronic kidney disease, stage 3 (moderate); E11.51 Type 2 diabetes mellitus with diabetic peripheral angiopathy without gangrene; I70.223 Atherosclerosis of native arteries of extremities with rest pain, bilateral legs; F32.9 Major depressive disorder, single episode, unspecified; F41.9 Anxiety disorder, unspecified; N40.0 Benign prostatic hyperplasia without lower urinary tract symptoms; R56.9 Unspecified convulsions; E87.5 Hyperkalemia; Y95 Nosocomial condition; Z86.74 Personal history of sudden cardiac arrest
CPT/HCPCS: 36415; 36600; 70450; 71045; 74018; 75630; 75774; 76770; 80048; 80053; 80202; 81003; 82150; 82550; 82553; 82803; 82962; 83605; 83690; 83735; 84100; 84443; 84484; 85007; 85025; 85651; 85730; 87040; 87070; 87081; 87181; 87205; 92950; 93005; 93925; 93970; 94002; 94003; 94150; 94664; 95819; 96360; 99285; J0171; J1815; J2370; J2405; S5561